=== PATIENT | female | born 1990 | race Caucasian/White ===

== ENCOUNTER 2021-01-03 22:47 | Emergency (ER) | payer MEDICAID, SELFPAY ==
[2021-01-03 22:47] VITALS: BP 109/68; PULSE 102; RESP 18; TEMP 36.6; O2SAT 98; BMI 21.7
[2021-01-03 22:55] VITALS: BP 117/78; PULSE 100; O2SAT 96
[2021-01-03 23:02] LABS: Microscopic, Urine URINE MICROSCOPIC (MICROSCOPIC)
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
[2021-01-03 23:04] LABS: Appearance,Urine CLEAR (Clear); Bilirubin,Urine Negative (Negative); Blood, Urine 3+ (Negative); Color,Urine YELLOW (Yellow); Glucose,Urine (UA) Negative (Negative); Ketones,Urine Negative (Negative); Leukocyte Esterase,Urine Negative (Negative); Nitrate,Urine Negative (Negative); Protein,Urine Negative (Negative); Specific Gravity, Urine <= 1.005 (1.005-1.030); Urobilinogen,Urine 0.2 EU/dl (0.2)
[2021-01-03 23:10] LABS: RBC,Urine Occasional #/hpf (0-3); WBC,Urine Occasional #/hpf (0-3)
[2021-01-03 23:14] LABS: Basophils # 0.1 K/mm3 (0-0.2); Basophils % 1.6 % (0.1-2.0); Eosinophils # 0.7 K/mm3 (0.0-0.4); Eosinophils % 9.9 % (0.1-12.0); Hematocrit 46.3 % (37.0-47.0); Hemoglobin 15.3 g/dL (12.2-16.2); Lymphocytes % 41.4 % (10-50); Mean Corpuscular HGB Conc 33.1 g/dL (31.8-35.4); Mean Corpuscular Hemoglobin 30.2 pg (27.0-31.2); Mean Corpuscular Volume 91.3 fl (81-99); Mean Platelet Volume 8.2 fl (7.4-10.4); Monocytes # 0.3 K/mm3 (0.1-1.0); Monocytes % 4.6 % (1.7-9.3); Neutrophils % 42.5 % (37.0-80.0); Platelet Count 262 K/mm3 (142-424); Red Blood Count 5.07 M/mm3 (4.20-5.40); Red Cell Distribution Width 13.9 % (11.5-17.5); White Blood Count 7.1 K/mm3 (4.8-10.8)
[2021-01-03 23:17] LABS: Amphetamine/Metha Screen,Urine Positive ng/ml (<1000); Benzodiazepines Screen,Urine Negative ng/ml (<200)
[2021-01-03 23:18] LABS: Barbiturates Screen,Urine Negative ng/ml (<200)
[2021-01-03 23:19] LABS: Cannabinoid Screen,Urine Negative ng/ml (<50); Cocaine Screen,Urine Negative ng/ml (<300)
[2021-01-03 23:20] LABS: Methadone Screen,Urine Negative ng/ml (<300); Opiate Screen,Urine Negative ng/ml (<300)
[2021-01-03 23:21] LABS: Alanine Aminotransferase 43 U/L (12-78); Albumin Level 4.8 g/dl (3.5-5.0); Albumin/Globulin Ratio 1.4 (1.1-1.8); Alkaline Phosphatase 67 U/L (38-126); Anion Gap 15.4 mEq/L (5-15); Aspartate Amino Transferase 62 U/L (14-36); Bilirubin,Total 0.4 mg/dl (0.2-1.3); Blood Urea Nitrogen 10 mg/dl (7-17); Calcium 9.3 mg/dl (8.4-10.2); Carbon Dioxide 24 mmol/L (22.0-30.0); Chloride 111 mmol/L (98-107); Creatinine Clearance Estimated 111 mL/min (50-200); Estimated Glomerular Filt Rate 116 ml/min (>60); GFR (African American) 140 ML/MIN (>60); Globulin 3.4 g/dL (1.3-3.2); Glucose 89 mg/dl (74-100); Lactic Acid 1.4 mmol/L (0.7-2.1); Potassium 3.4 mmoL/L (3.5-5.1); Sodium 147 mmol/L (136-145); Total Protein,Serum 8.2 g/dl (6.3-8.2)
[2021-01-03 23:21] LABS: Phencyclidine Screen,Urine Negative ng/ml (<25)
[2021-01-03 23:26] LABS: C-Reactive Protein 2.3 mg/L (0-4)
[2021-01-03 23:40] LABS: Procalcitonin 0.053 ng/mL (0.0-2.0)
[2021-01-03 23:52] LABS: Erythrocyte Sedimentation Rate 7 mm/hr (0-20)
[2021-01-04 00:18] LABS: Ethyl Alcohol 228 mg/dl (0-10)
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
[2021-01-04 02:29] VITALS: BP 116/78; PULSE 96; RESP 19; TEMP 36.6; O2SAT 98
== END 2021-01-04 02:38 | disposition home or self-care (01) ==
PROVIDERS: Emergency Provider Emergency Medicine
DX: S02.642A Fracture of ramus of left mandible, initial encounter for closed fracture (principal); F10.920 Alcohol use, unspecified with intoxication, uncomplicated; F19.10 Other psychoactive substance abuse, uncomplicated; F17.210 Nicotine dependence, cigarettes, uncomplicated; Y04.0XXA Assault by unarmed brawl or fight, initial encounter; Y92.009 Unspecified place in unspecified non-institutional (private) residence as the place of occurrence of the external cause
CPT/HCPCS: 70450; 70486; 71046; 72125; 80053; 80305; 81001; 83605; 84145; 85025; 85651; 86140; 87040; 96365; 99283

== ENCOUNTER 2021-01-05 19:02 | Emergency (ER) | payer MEDICAID, SELFPAY ==
[2021-01-05 19:03] VITALS: BP 125/84; PULSE 104; RESP 16; TEMP 36.7; O2SAT 93; BMI 22.6
--- NOTE | 2021-01-05 19:22 | CT_ITS ---
PROCEDURE: CT HEAD/BRAIN WO CON CLINICAL INDICATION: headache Severe headache, Head injury with headache/pain, contusion, abrasion or hematoma COMPARISON: CT CT HEAD/BRAIN WO CON from 01/03/2021 TECHNIQUE: Axial images obtained. All CT scans at the facility use one or more dose reduction, viz: automated exposure control, ma/kV adjustment per patient size (including targeted exams where dose is matched to indication, i.e. head), or iterative reconstruction technique. FINDINGS: No midline shift, mass effect, intracranial hemorrhage, hydrocephalus, or extra-axial fluid collection is evident. Numerous metallic densities once again noted in the vermian region and central cerebellum consistent with multiple coils. No acute intracranial hemorrhage apparent. The calvarium has an unremarkable appearance. No mastoid effusion. No sinus air-fluid level. IMPRESSION: No change with no acute finding Dictated by: Christopher Rondon MD 01/06/2021 10:21 Christopher Rondon MD in [facility] 01/06/2021 10:21
--- NOTE | 2021-01-05 19:22 | XR_ITS ---
PROCEDURE: XR CHEST PORTABLE CLINICAL HISTORY: chest pain Pain COMPARISON: CT CT CERVICAL SPINE WO CON from 01/03/2021 CR XR CHEST 2V from 01/03/2021 FINDINGS: The cardiomediastinal silhouette and pulmonary vascularity are within normal limits. No lobar consolidation or collapse. There is a linear longitudinal opacity noted along the left lateral chest which may be due to overlying artifact or a pleural reflection. Lung markings are present peripheral to this region. Consider follow-up to confirm stability or resolution. No acute bony abnormalities. IMPRESSION: No acute findings. Dictated by: Christopher Rondon MD 01/06/2021 06:00 Christopher Rondon MD in [facility] 01/06/2021 06:00
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
[2021-01-05 19:42] LABS: Basophils # 0.1 K/mm3 (0-0.2); Basophils % 0.8 % (0.1-2.0); Eosinophils # 0.1 K/mm3 (0.0-0.4); Eosinophils % 1.9 % (0.1-12.0); Hematocrit 43.8 % (37.0-47.0); Hemoglobin 14.3 g/dL (12.2-16.2); Lymphocytes # 2.5 K/mm3 (0.7-4.5); Mean Corpuscular HGB Conc 32.7 g/dL (31.8-35.4); Mean Corpuscular Hemoglobin 29.8 pg (27.0-31.2); Mean Platelet Volume 8.2 fl (7.4-10.4); Monocytes # 0.3 K/mm3 (0.1-1.0); Monocytes % 3.9 % (1.7-9.3); Neutrophils # 3.6 K/mm3 (1.8-7.8); Neutrophils % 55.4 % (37.0-80.0); Platelet Count 320 K/mm3 (142-424); Red Blood Count 4.81 M/mm3 (4.20-5.40); Red Cell Distribution Width 13.9 % (11.5-17.5); White Blood Count 6.5 K/mm3 (4.8-10.8)
[2021-01-05 19:44] LABS: Chloride 114 mmol/L (98-107); Potassium 3.6 mmoL/L (3.5-5.1); Sodium 148 mmol/L (136-145)
[2021-01-05 19:46] LABS: Alanine Aminotransferase 37 U/L (12-78); Aspartate Amino Transferase 44 U/L (14-36); Blood Urea Nitrogen 8 mg/dl (7-17); Creatinine Clearance Estimated 116 mL/min (50-200); Estimated Glomerular Filt Rate 116 ml/min (>60); GFR (African American) 140 ML/MIN (>60)
[2021-01-05 19:47] LABS: Albumin Level 4.7 g/dl (3.5-5.0); Albumin/Globulin Ratio 1.4 (1.1-1.8); Alkaline Phosphatase 70 U/L (38-126); Anion Gap 16.6 mEq/L (5-15); Bilirubin,Total 0.3 mg/dl (0.2-1.3); Calcium 9.3 mg/dl (8.4-10.2); Carbon Dioxide 21 mmol/L (22.0-30.0); Ethyl Alcohol 249 mg/dl (0-10); Globulin 3.3 g/dL (1.3-3.2); Glucose 113 mg/dl (74-100)
[2021-01-05 20:00] LABS: Troponin I < 0.01 ng/ml (0.00-0.034)
[2021-01-05 21:12] VITALS: BP 131/81; PULSE 79; RESP 16; TEMP 36.8; O2SAT 95
== END 2021-01-05 21:13 ==
PROVIDERS: Emergency Provider Emergency Medicine
DX: F10.10 Alcohol abuse, uncomplicated (principal); S02.602D Fracture of unspecified part of body of left mandible, subsequent encounter for fracture with routine healing; F17.210 Nicotine dependence, cigarettes, uncomplicated; Z88.0 Allergy status to penicillin
CPT/HCPCS: 36415; 70450; 71045; 80053; 84484; 85025; 93005; 99283

== ENCOUNTER → 2021-01-27 16:34 | Outpatient (CLI) | payer MEDICAID, SELFPAY ==
[2021-01-27 17:08] LABS: Benzodiazepines Screen,Urine Negative ng/ml (<200)
[2021-01-27 17:09] LABS: Amphetamine/Metha Screen,Urine Negative ng/ml (<1000)
[2021-01-27 17:10] LABS: Barbiturates Screen,Urine Negative ng/ml (<200); Methadone Screen,Urine Negative ng/ml (<300)
[2021-01-27 17:11] LABS: Cannabinoid Screen,Urine Negative ng/ml (<50); Cocaine Screen,Urine Negative ng/ml (<300)
[2021-01-27 17:12] LABS: Opiate Screen,Urine Negative ng/ml (<300)
[2021-01-27 17:13] LABS: Phencyclidine Screen,Urine Negative ng/ml (<25)
== END ==
PROVIDERS: Visit Provider Family Medicine
DX: Z79.899 Other long term (current) drug therapy (principal)
CPT/HCPCS: 80305

== ENCOUNTER → 2021-04-29 12:02 | Outpatient (CLI) | payer MEDICAID, SELFPAY | PROVIDERS: PCP Family Medicine; Visit Provider Family Medicine | DX: Z20.822 Contact with and (suspected) exposure to COVID-19 (principal) | CPT/HCPCS: U0003 ==

== ENCOUNTER → 2021-04-30 15:43 | Outpatient (CLI) | payer MEDICAID, SELFPAY | PROVIDERS: Visit Provider Nurse Practitioner Family | DX: N39.0 Urinary tract infection, site not specified (principal) | CPT/HCPCS: 87086; 87088; 87186 ==

== ENCOUNTER → 2021-07-14 08:13 | Outpatient (CLI) | payer MEDICAID, SELFPAY | PROVIDERS: Visit Provider Physician Assistant | DX: Z01.818 Encounter for other preprocedural examination (principal); Z11.52 Encounter for screening for COVID-19 | CPT/HCPCS: C9803; U0003; U0005 ==

== ENCOUNTER → 2021-08-02 18:15 | Outpatient (CLI) | payer MEDICAID, SELFPAY | PROVIDERS: Visit Provider Nurse Practitioner Family | DX: Z20.822 Contact with and (suspected) exposure to COVID-19 (principal) | CPT/HCPCS: C9803; U0003; U0005 ==

== ENCOUNTER → 2021-11-06 12:39 | Outpatient (CLI) | payer MEDICAID, SELFPAY ==
[2021-11-07 06:37] LABS: Covid-19 Nasal PCR Sendout Lex NOT DETECTED
== END ==
PROVIDERS: Visit Provider Nurse Practitioner
DX: Z20.822 Contact with and (suspected) exposure to COVID-19 (principal)
CPT/HCPCS: C9803; U0004; U0005

== ENCOUNTER 2021-11-06 12:44 | Emergency (ER) | payer MEDICAID, SELFPAY ==
[2021-11-06 13:36] VITALS: BP 102/67; PULSE 95; RESP 18; TEMP 37.3; O2SAT 97; BMI 23.6
--- NOTE | 2021-11-06 13:56 | HMH.EDUTC ---
[facility] [place] Impression: Bronchitis Sinusitis Qualifiers: Sinusitis location: unspecified location Chronicity: acute Recurrence: non-recurrent Qualified Code(s): J01.90 - Acute sinusitis, unspecified Disposition: Home, Self-Care Condition on Discharge: Good Instructions: DI for Sinusitis, DI for Acute Bronchitis Additional Instructions: Drink plenty of fluids. Take tylenol or ibuprofen for pain or fever. Take the medications as directed. Follow up with your regular doctor. GO TO THE ER FOR ANY WORSENING SYMPTOMS Quarantine until you know the results of your covid-19 test. Notify your school or workplace of your results and follow their instructions regarding return to work/school. Prescriptions: Benzonatate [Benzonatate 100mg cap] 100 mg PO TIDP PRN #30 cap PRN Reason: Cough Transmission Status: Pending to [facility] methylPREDNISolone [Medrol] 4 mg PO DIRECTED 6 Days #21 packet Transmission Status: Pending to [facility] guaiFENesin [Mucinex 600mg tablet] 1 - 2 tab PO BIDP PRN #30 tab PRN Reason: Congestion Transmission Status: Pending to [facility] Cefdinir [Omnicef 300mg Capsule] 300 mg PO BID #20 cap Transmission Status: Pending to [facility] Referrals: Provider,Referral, MD [Primary Care Provider] - Time of Disposition: 14:45 Medical Decision Making - Medical Records Medical records reviewed: No: I reviewed the patient's medical records. - Jung Inquiry Pt receiving controlled substance: No Vital Signs: 11/06/21 13:36 Temperature 99.1 F Temperature Source Oral Pulse Rate [Left] 95 H Respiratory Rate 18 Blood Pressure [Right Arm] 102/67 L Blood Pressure Mean [Right Arm] 78 02 Sat by Pulse Oximetry 97 Orders (Tests/Meds): ORDERS Category Date Time Status Rapid Strep Scrn Group A [Strep Scrn Group A (Rapid)] Lab 11/06/21 13:40 [place] [facility] [place] Stated complaint: Possible sinus infection Time Seen by Provider: 11/06/21 13:56 Mode of Arrival: Ambulatory Source of Information: Patient Limitations: No Limitations Description of Symptoms (Recalled from Triage Doc. by RN): pt c/o a cough, dry nose, and itchy throat x3 days. HEENT Symptoms (Recalled from RN notes): Yes Resp Symptoms (Recalled from RN notes): Yes Skin Symptoms (Recalled from RN notes): No MS Symptoms (Recalled from RN notes): No Functional Status (Recalled from RN notes): wnl - History of Present Illness Provider Complaint: She states that for the past 3 days she has had sinus congestion, chest congestion, scratchy sore throat, productive cough with yellowish sputum. She denies any fever or chills. She has been vaccinated agaist covid-19. She denies any known sick contacts. - Related Data Home Medications Medication Instructions Recorded Confirmed buprenorphine 8 mg-naloxone 2 mg 1 dose SUBLINGUAL DAILY 10/25/20 05/15/21 sublingual tablet clonidine HCl 0.1 mg tablet 0.1 mg PO tab 08/02/21 08/02/21 cyclobenzaprine 5 mg tablet 5 mg PO tab 08/02/21 08/02/21 dexamethasone 4 mg tablet 4 mg PO tab 08/02/21 08/02/21 gabapentin 300 mg capsule 300 mg PO cap 08/02/21 08/02/21 oxycodone 5 mg tablet 5 mg PO tab 08/02/21 08/02/21 promethazine 25 mg tablet 25 mg PO tab 08/02/21 08/02/21 Previous Rx's Medication Instructions Recorded doxycycline hyclate 100 mg capsule 100 mg PO BID 10 Days #20 cap 08/02/21 albuterol sulfate 90 mcg/actuation See Rx Instructions .ROUTE 09/18/21 aerosol inhaler .COMPLEX #8.5 gram albuterol sulfate 90 mcg/actuation See Rx Instructions .ROUTE 10/08/21 aerosol inhaler .COMPLEX #8.5 g Benzonatate [Benzonatate 100mg 100 mg PO TIDP PRN #30 cap 11/06/21 cap] Cefdinir [Omnicef 300mg Capsule] 300 mg PO BID #20 cap 11/06/21 guaiFENesin [Mucinex 600mg tablet] 1 - 2 tab PO BIDP PRN #30 tab 11/06/21 methylPREDNISolone [Medrol] 4 mg PO DIRECTE
[2021-11-06 14:43] LABS: Strep Scrn Group A (Rapid) Negative (Negative)
[2021-11-06 14:53] VITALS: BP 102/67; PULSE 95; RESP 18; TEMP 37.3
== END 2021-11-06 14:54 | disposition home or self-care (01) ==
PROVIDERS: Emergency Provider Nurse Practitioner Family
DX: J20.9 Acute bronchitis, unspecified (principal); J01.90 Acute sinusitis, unspecified; F41.8 Other specified anxiety disorders; F17.210 Nicotine dependence, cigarettes, uncomplicated
CPT/HCPCS: 87430; 99203; G0463

== ENCOUNTER → 2021-11-25 12:01 | Outpatient (CLI) | payer MEDICAID, SELFPAY ==
[2021-11-25 17:40] LABS: Basophils % 0.8 % (0.1-2.0); Eosinophils # 0.3 K/mm3 (0.0-0.4); Eosinophils % 4.4 % (0.1-12.0); Hematocrit 40.6 % (37.0-47.0); Hemoglobin 13.1 g/dL (12.2-16.2); Lymphocytes % 34.8 % (10-50); Mean Corpuscular HGB Conc 32.3 g/dL (31.8-35.4); Mean Corpuscular Hemoglobin 29.2 pg (27.0-31.2); Mean Corpuscular Volume 90.4 fl (81-99); Mean Platelet Volume 9.7 fl (7.4-10.4); Monocytes # 0.5 K/mm3 (0.1-1.0); Monocytes % 7.9 % (1.7-9.3); Neutrophils % 52.1 % (37.0-80.0); Platelet Count 234 K/mm3 (142-424); Red Blood Count 4.49 M/mm3 (4.20-5.40); Red Cell Distribution Width 15.7 % (11.5-17.5); White Blood Count 5.7 K/mm3 (4.8-10.8)
[2021-11-25 17:58] LABS: Alanine Aminotransferase 128 U/L (12-78); Albumin Level 4.5 g/dl (3.5-5.0); Albumin/Globulin Ratio 1.6 (1.1-1.8); Alkaline Phosphatase 62 U/L (38-126); Anion Gap 11.9 mEq/L (5-15); Aspartate Amino Transferase 98 U/L (14-36); Bilirubin,Total 0.6 mg/dl (0.2-1.3); Blood Urea Nitrogen 10 mg/dl (7-17); Calcium 8.8 mg/dl (8.4-10.2); Carbon Dioxide 29 mmol/L (22.0-30.0); Chloride 103 mmol/L (98-107); Estimated Glomerular Filt Rate 115 ml/min (>60); GFR (African American) 139 ML/MIN (>60); Globulin 2.9 g/dL (1.3-3.2); Glucose 88 mg/dl (74-100); Potassium 3.9 mmoL/L (3.5-5.1); Sodium 140 mmol/L (136-145); Total Protein,Serum 7.4 g/dl (6.3-8.2)
[2021-11-27 09:26] LABS: HIV Screen 4th Generation wRfx Non Reactive (Non Reactive)
[2021-11-27 12:18] LABS: Hep A Ab, IgM Negative (Negative); Hep A Ab, Total Positive (Negative); Hep B Core Ab, Total Negative (Negative); Hep B Surface Ab, Qual Reactive (.); Hepatitis B Surface Antigen Negative (Negative); Hepatitis C Antibody >11.0 s/co ratio (0.0-0.9)
[2021-11-28 03:37] LABS: ALT (SGPT) P5P 124 IU/L (0-40); Alpha 2-Macroglobulins, Qn 256 mg/dL (110-276); Apolipoprotein A-1 121 mg/dL (116-209); Bilirubin, Total 0.4 mg/dL (0.0-1.2); Fibrosis Score 0.19 (0.00-0.21); GGT 21 IU/L (0-60); Haptoglobin 112 mg/dL (33-278); Necroinflammat Activity Grade A2-A3 (.); Necroinflammat Activity Score 0.61 (0.00-0.17)
[2021-11-29 20:08] LABS: HCV Genotype Charge YES; Hepatitis C Genotype 3 (.)
== END ==
PROVIDERS: Visit Provider Family Medicine
DX: B19.20 Unspecified viral hepatitis C without hepatic coma (principal); N28.9 Disorder of kidney and ureter, unspecified; B96.1 Klebsiella pneumoniae [K. pneumoniae] as the cause of diseases classified elsewhere
CPT/HCPCS: 80053; 81596; 85025; 86703; 86704; 86706; 86708; 87086; 87088; 87186; 87340; 87380; 87522; 87902; G0432

== ENCOUNTER → 2022-02-27 07:00 | Outpatient (CLI) | payer MEDICAID, SELFPAY | PROVIDERS: PCP Family Medicine; Visit Provider Family Medicine | DX: R30.9 Painful micturition, unspecified (principal); B96.20 Unspecified Escherichia coli [E. coli] as the cause of diseases classified elsewhere | CPT/HCPCS: 87086; 87088; 87186 ==

== ENCOUNTER → 2022-05-20 06:19 | Outpatient (CLI) | payer MEDICAID, SELFPAY ==
[2022-05-20 16:10] LABS: Alanine Aminotransferase 45 U/L (12-78); Albumin Level 4.4 g/dl (3.5-5.0); Albumin/Globulin Ratio 1.4 (1.1-1.8); Alkaline Phosphatase 82 U/L (38-126); Anion Gap 11.2 mEq/L (5-15); Aspartate Amino Transferase 58 U/L (14-36); Bilirubin,Total 0.4 mg/dl (0.2-1.3); Blood Urea Nitrogen 8 mg/dl (7-17); Calcium 9.2 mg/dl (8.4-10.2); Carbon Dioxide 27 mmol/L (22.0-30.0); Chloride 106 mmol/L (98-107); Estimated Glomerular Filt Rate 114 ml/min (>60); GFR (African American) 138 ML/MIN (>60); Globulin 3.1 g/dL (1.3-3.2); Glucose 90 mg/dl (74-100); Potassium 4.2 mmoL/L (3.5-5.1); Sodium 140 mmol/L (136-145); Total Protein,Serum 7.5 g/dl (6.3-8.2)
[2022-05-20 17:47] LABS: Eosinophils # 0.3 K/mm3 (0.0-0.4); Eosinophils % 6.6 % (0.1-12.0); Hematocrit 42.2 % (37.0-47.0); Hemoglobin 12.9 g/dL (12.2-16.2); Lymphocytes # 1.5 K/mm3 (0.7-4.5); Lymphocytes % 36.6 % (10-50); Mean Corpuscular HGB Conc 30.5 g/dL (31.8-35.4); Mean Corpuscular Hemoglobin 28.9 pg (27.0-31.2); Mean Platelet Volume 10.2 fl (7.4-10.4); Monocytes # 0.4 K/mm3 (0.1-1.0); Monocytes % 8.9 % (1.7-9.3); Neutrophils # 1.9 K/mm3 (1.8-7.8); Neutrophils % 46.8 % (37.0-80.0); Platelet Count 261 K/mm3 (142-424); Red Blood Count 4.44 M/mm3 (4.20-5.40); Red Cell Distribution Width 14.1 % (11.5-17.5); White Blood Count 4.2 K/mm3 (4.8-10.8)
[2022-05-22 09:25] LABS: HIV Screen 4th Generation wRfx Non Reactive (Non Reactive); Hepatitis B Surface Antigen Negative (Negative); Hepatitis C Antibody >11.0 s/co ratio (0.0-0.9)
[2022-05-22 12:22] LABS: Hep A Ab, Total Positive (Negative); Hep B Core Ab, Total Negative (Negative); Hep B Surface Ab, Qual Reactive (.)
[2022-05-28 18:08] LABS: HCV Genotype Charge YES; Hepatitis C Genotype 3 (.)
== END ==
PROVIDERS: PCP Nurse Practitioner Family; Visit Provider Nurse Practitioner Family
DX: F15.10 Other stimulant abuse, uncomplicated (principal); R53.83 Other fatigue; Z11.4 Encounter for screening for human immunodeficiency virus [HIV]
CPT/HCPCS: 80053; 85025; 86703; 86704; 86706; 86708; 87340; 87380; 87522; 87902; G0432

== ENCOUNTER 2022-06-28 15:15 | Emergency (ER) | payer MEDICAID, SELFPAY ==
[2022-06-28 15:34] VITALS: BP 141/82; PULSE 74; RESP 16; TEMP 36.8; O2SAT 98; BMI 23.6
--- NOTE | 2022-06-28 15:54 | EXP.UTC ---
Discharge Plan Disposition Patient Disposition: Home, Self-Care Condition: Good Prescriptions Prescriptions: New methylprednisolone 4 mg Tablets,Dose Pack 4 mg PO DIRECTED Qty: 21 0RF cefdinir 300 mg capsule 300 mg PO BID Qty: 20 0RF fluticasone propionate [fluticasone propionate] 50 mcg/actuation spray,suspension 1 spr intranasal DAILY 30 Days Qty: 120 0RF No Action buprenorphine-naloxone 8-2 mg tablet, sublingual 1 tab SL DAILY albuterol sulfate [ProAir HFA] 90 mcg/actuation HFA aerosol inhaler See Rx Instructions .ROUTE .COMPLEX Qty: 8.5 0RF Dose Instruction: INHALE 2 PUFFS BY MOUTH EVERY 6 HOURS NEEDED FOR WHEEZING Rx Instructions: INHALE 2 PUFFS BY MOUTH EVERY 6 HOURS NEEDED FOR WHEEZING Vraylar 1.5 mg capsule 1.5 mg PO DAILY Qty: 30 1RF Referrals Follow up/Referrals: Colt Euceda MD [Primary Care Provider] - See instructions Activity Restrictions/Add. Instructions Additional Instructions/Restrictions: Drink plenty of fluids. Take tylenol or ibuprofen for pain or fever. Take the medications as directed. Follow up with your regular doctor. GO TO THE ER FOR ANY WORSENING SYMPTOMS Clinical Impressions Clinical Impression: Sinusitis Instructions Patient Instructions: Sinusitis, DI for Sinusitis Discharge ED Provider: Josef Pickett [facility] General Stated complaint: coughing, congestion Mode of Arrival: Ambulatory Source of Information: Patient Limitations: No Limitations Time Seen by Provider: 06/28/22 15:52 Description of Symptoms (Recalled from Triage Doc. by RN): pt comes in with c/o sinus issues. symptoms began 3 weeks ago. pt here for flonase and abx HEENT Symptoms (Recalled from RN notes): Yes Resp Symptoms (Recalled from RN notes): No Skin Symptoms (Recalled from RN notes): No MS Symptoms (Recalled from RN notes): No Functional Status (Recalled from RN notes): n/a History of Present Illness Provider Complaint: She c/o worsening sinus congestion for the past 3 days. Related Data Home Medications Medication Instructions Recorded Confirmed buprenorphine 8 mg-naloxone 2 mg 1 tab sublingual DAILY 05/11/22 05/20/22 sublingual tablet Previous Rx's Medication Instructions Recorded albuterol sulfate 90 mcg/actuation See Rx Instructions .Route 06/15/22 aerosol inhaler (ProAir HFA) .COMPLEX #8.5 grams cariprazine 1.5 mg capsule 1.5 mg PO DAILY #30 caps 06/22/22 (Vraylar) cefdinir 300 mg capsule 300 mg PO BID #20 caps 06/28/22 fluticasone propionate 50 1 spr intranasal DAILY 30 days 06/28/22 mcg/actuation nasal #120 ea spray,suspension methylprednisolone 4 mg tablets in 4 mg PO DIRECTED #21 tabs 06/28/22 a dose pack Allergies Allergy/AdvReac Type Severity Reaction Status Date / Time amoxicillin Allergy Severe Hives Verified 06/28/22 15:36 erythromycin base Allergy Severe Hives Verified 06/28/22 15:36 Penicillins Allergy Severe Hives Verified 06/28/22 15:36 Worker's Comp Is this a Worker's Comp case?: No PFSH PFSH Social History Smoking Status: Current every day smoker tobacco type: cigarettes packs per day: 1 alcohol intake: current substance use type: heroin current occupational status: unemployed and disabled Travel in the last 8 weeks: None household members: significant other housing: apartment number of children: 4 ROS Obtained: Yes All systems reviewed & no additional complaints except as documented Constitutional Constitutional: Reports chills and Reports fever(s) Eyes Eyes: Denies eye discharge ENT Ears, Nose, Mouth, and Throat: Reports as per HPI Cardiovascular Cardiovascular: Denies chest pain Respiratory Respiratory: Denies chest congestion and Reports cough Gastrointestinal Gastrointestingal: Reports nausea; Denies abdominal pain, constipation, cramping, diarrhea or vomiting Musculoskeletal Musculoskeletal: Denie
[2022-06-28 16:03] VITALS: BP 183/66; PULSE 60; RESP 18; TEMP 36.5
[2022-06-28 16:05] VITALS: BP 183/66; PULSE 60; RESP 18; TEMP 36.5
== END 2022-06-28 16:04 | disposition home or self-care (01) ==
PROVIDERS: Emergency Provider Nurse Practitioner Family; PCP Family Medicine
DX: J32.9 Chronic sinusitis, unspecified (principal)
CPT/HCPCS: 99212; G0463

== ENCOUNTER 2022-07-11 12:03 | Emergency (ER) | payer MEDICAID, SELFPAY ==
[2022-07-11 13:06] VITALS: BP 115/64; PULSE 77; RESP 18; TEMP 36.6; O2SAT 97; BMI 23.6
--- NOTE | 2022-07-11 13:06 | EXP.UTC ---
Discharge Plan Disposition Patient Disposition: Home, Self-Care Condition: Good Prescriptions Prescriptions: New cefdinir 300 mg capsule 300 mg PO BID Qty: 20 0RF guaifenesin [Mucinex] 600 mg tablet extended release 12hr 600 - 1,200 mg PO BIDP PRN (Reason: Congestion) Qty: 30 0RF No Action buprenorphine-naloxone 8-2 mg tablet, sublingual 1 tab SL DAILY albuterol sulfate [ProAir HFA] 90 mcg/actuation HFA aerosol inhaler See Rx Instructions .ROUTE .COMPLEX Qty: 8.5 0RF Dose Instruction: INHALE 2 PUFFS BY MOUTH EVERY 6 HOURS NEEDED FOR WHEEZING Rx Instructions: INHALE 2 PUFFS BY MOUTH EVERY 6 HOURS NEEDED FOR WHEEZING Vraylar 1.5 mg capsule 1.5 mg PO DAILY Qty: 30 1RF methylprednisolone 4 mg Tablets,Dose Pack 4 mg PO DIRECTED Qty: 21 0RF cefdinir 300 mg capsule 300 mg PO BID Qty: 20 0RF fluticasone propionate [fluticasone propionate] 50 mcg/actuation spray,suspension 1 spr intranasal DAILY 30 Days Qty: 120 0RF Referrals Follow up/Referrals: Colt Euceda MD [Primary Care Provider] - See instructions Activity Restrictions/Add. Instructions Additional Instructions/Restrictions: Drink plenty of fluids. Take tylenol or ibuprofen for pain or fever. Take the medications as directed. Follow up with your regular doctor. GO TO THE ER FOR ANY WORSENING SYMPTOMS Clinical Impressions Clinical Impression: Sinusitis, Otitis media Instructions Patient Instructions: Middle Ear Infection, DI for Sinusitis Discharge ED Provider: Josef Pickett [facility] HPI General Stated complaint: congestion and ear pain sore throat Time Seen by Provider: 07/11/22 13:06 History of Present Illness Provider Complaint: She states that for the past 2 days she has had sinus congestion and a sore throat. She has had low grade fever. She denies shortness of breath. Related Data Home Medications Medication Instructions Recorded Confirmed buprenorphine 8 mg-naloxone 2 mg 1 tab sublingual DAILY 05/11/22 05/20/22 sublingual tablet Previous Rx's Medication Instructions Recorded albuterol sulfate 90 mcg/actuation See Rx Instructions .Route 06/15/22 aerosol inhaler (ProAir HFA) .COMPLEX #8.5 grams cariprazine 1.5 mg capsule 1.5 mg PO DAILY #30 caps 06/22/22 (Vraylar) cefdinir 300 mg capsule 300 mg PO BID #20 caps 06/28/22 fluticasone propionate 50 1 spr intranasal DAILY 30 days 06/28/22 mcg/actuation nasal #120 ea spray,suspension methylprednisolone 4 mg tablets in 4 mg PO DIRECTED #21 tabs 06/28/22 a dose pack cefdinir 300 mg capsule 300 mg PO BID #20 caps 07/11/22 guaifenesin 600 mg tablet, 600 - 1,200 mg PO BIDP PRN 07/11/22 extended release 12 hr (Mucinex) Congestion #30 tabs Allergies Allergy/AdvReac Type Severity Reaction Status Date / Time amoxicillin Allergy Severe Hives Verified 07/11/22 13:09 erythromycin base Allergy Severe Hives Verified 07/11/22 13:09 Penicillins Allergy Severe Hives Verified 07/11/22 13:09 [facility] Social History Smoking Status: Current every day smoker tobacco type: cigarettes packs per day: 1 alcohol intake: current substance use type: heroin current occupational status: unemployed and disabled Travel in the last 8 weeks: None household members: significant other housing: apartment number of children: 4 ROS Obtained: Yes All systems reviewed & no additional complaints except as documented Constitutional Constitutional: Reports chills and Reports fever(s) Eyes Eyes: Denies eye discharge ENT Ears, Nose, Mouth, and Throat: Reports as per HPI Cardiovascular Cardiovascular: Denies chest pain Respiratory Respiratory: Denies chest congestion and Reports cough Gastrointestinal Gastrointestingal: Reports nausea; Denies abdominal pain, constipation, cramping, diarrhea or vomiting Musculoskeletal Musculoskeletal: Denies arthralgias Integumentar
[2022-07-11 13:18] LABS: UTC Strep Screen (Rapid) Negative (Negative)
[2022-07-11 13:34] VITALS: BP 115/64; PULSE 77; RESP 18; TEMP 36.6
== END 2022-07-11 13:37 | disposition home or self-care (01) ==
PROVIDERS: Emergency Provider Nurse Practitioner Family; PCP Family Medicine
DX: H66.90 Otitis media, unspecified, unspecified ear (principal); J02.9 Acute pharyngitis, unspecified; R50.9 Fever, unspecified; R09.81 Nasal congestion; F17.210 Nicotine dependence, cigarettes, uncomplicated; Z79.51 Long term (current) use of inhaled steroids; Z79.52 Long term (current) use of systemic steroids; Z79.899 Other long term (current) drug therapy; Z88.0 Allergy status to penicillin; Z88.1 Allergy status to other antibiotic agents; Z88.3 Allergy status to other anti-infective agents
CPT/HCPCS: 87880; 99213; G0463

== ENCOUNTER 2022-08-30 07:44 | Inpatient (IN) | payer MEDICAID, SELFPAY ==
[2022-08-30] VITALS (21 sets, daily range): BP systolic 107–135; BP diastolic 67–95; PULSE 85–127; RESP 18–32; TEMP 36.5–37.2; O2SAT 85–100; BMI 25.4; BMI 23.1
--- NOTE | 2022-08-30 08:02 | XR_ITS ---
PROCEDURE INFORMATION: Exam: XR Chest Exam date and time: 08/30/2022 8:30 AM Age: 32 years old Clinical indication: Shortness of breath; Additional info: SOA TECHNIQUE: Imaging protocol: Radiologic exam of the chest. Views: 1 view. COMPARISON: CR XR CHEST PORTABLE 01/05/2021 7:43 PM FINDINGS: Lungs: Emphysematous change and interstitial prominence. Pleural spaces: No pneumothorax or pleural effusion. Heart/Mediastinum: Normal configuration of the heart. Bones/joints: Unremarkable. Soft tissues: Subcutaneous emphysema and pneumomediastinum. Other findings: Brassiere artifact. IMPRESSION: 1. Subcutaneous emphysema and pneumomediastinum. 2. Emphysematous change and interstitial prominence. The aforementioned findings initiated a critical results communication pathway. An addendum will be issued at the time of clincian notification.
--- NOTE | 2022-08-30 08:09 | PC.NURSE ---
RT at the bedside
[2022-08-30 08:11] LABS: Coronavirus 19, PCR Not Detected (NotDetected); Influenza A, PCR Not Detected (NotDetected); Influenza B, PCR Not Detected (NotDetected)
[2022-08-30 08:16] LABS: Basophils # 0.2 K/mm3 (0-0.2); Basophils % 0.8 % (0.1-2.0); Chloride 103 mmol/L (98-107); Eosinophils # 0.8 K/mm3 (0.0-0.4); Eosinophils % 4.4 % (0.1-12.0); Hematocrit 43.5 % (37.0-47.0); Hemoglobin 14.2 g/dL (12.2-16.2); Lymphocytes # 4.1 K/mm3 (0.7-4.5); Lymphocytes % 22.3 % (10-50); Mean Corpuscular HGB Conc 32.6 g/dL (31.8-35.4); Mean Corpuscular Volume 92.2 fl (81-99); Mean Platelet Volume 8.9 fl (7.4-10.4); Monocytes % 5.7 % (1.7-9.3); Neutrophils # 12.3 K/mm3 (1.8-7.8); Neutrophils % 66.9 % (37.0-80.0); Platelet Count 368 K/mm3 (142-424); Potassium 3.8 mmoL/L (3.5-5.1); Red Blood Count 4.72 M/mm3 (4.20-5.40); Red Cell Distribution Width 14.2 % (11.5-17.5); Sodium 140 mmol/L (136-145); White Blood Count 18.4 K/mm3 (4.8-10.8)
[2022-08-30 08:19] LABS: Alanine Aminotransferase 31 U/L (12-78); Albumin Level 4.7 g/dl (3.5-5.0); Albumin/Globulin Ratio 1.4 (1.1-1.8); Alkaline Phosphatase 71 U/L (38-126); Anion Gap 19.8 mEq/L (5-15); Aspartate Amino Transferase 36 U/L (14-36); Bilirubin,Total 0.7 mg/dl (0.2-1.3); Blood Urea Nitrogen 13 mg/dl (7-17); Carbon Dioxide 21 mmol/L (22.0-30.0); Creatinine Clearance Estimated 128 mL/min (50-200); Estimated Glomerular Filt Rate 114 ml/min (>60); GFR (African American) 138 ML/MIN (>60); Globulin 3.4 g/dL (1.3-3.2); Total Protein,Serum 8.1 g/dl (6.3-8.2)
[2022-08-30 08:20] LABS: Calcium 9.3 mg/dl (8.4-10.2); Glucose 155 mg/dl (74-100)
[2022-08-30 08:23] LABS: Lactic Acid 4.6 mmol/L (0.7-2.1)
[2022-08-30 08:25] LABS: D-Dimer 0.59 ug/mL (0.0-0.5)
[2022-08-30 08:27] LABS: MANUAL DIFFERENTIAL MANUAL DIFFERENTIAL (MANUAL DIFF)
[2022-08-30 08:28] LABS: NT Pro Brain Natriuretic Pep. 102 pg/mL (0-125)
--- NOTE | 2022-08-30 08:29 | HMH.EDGENADL ---
Discharge Plan Disposition Patient Disposition: Admitted As Inpatient Condition: Good Clinical Impressions Clinical Impression: Pneumomediastinum Asthma exacerbation Qualifiers: Asthma severity: unspecified severity Asthma persistence: unspecified Qualified Code(s): J45.901 - Unspecified asthma with (acute) exacerbation Discharge ED Provider: Debbie Serrano General Adult HPI General Chief complaint: Shortness of Breath/Dyspnea Stated complaint: Difficulty breathing Time Seen by Provider: 08/30/22 08:02 Mode of Arrival: Wheelchair Source of Information: Patient Limitations: No Limitations Description of Symptoms (Recalled from ER Triage Doc. by RN): pt to ed c/o shortness of breath x2 days. pt reports a hx of asthma. History of Present Illness HPI narrative: This patient is a 32-year-old female with extensive smoking history, asthma, and IV drug use presented to the emergency department for evaluation of shortness of breath that she reports started suddenly last night. She states that she also had similar symptoms 3 days ago, but this was improved with inhalers. Since last night, she has been unable to get relief at home with inhalers. She reports that she started having chest pain this morning as well which is midsternal and nonradiating. She admits to subjective fever and cough. She denies any abdominal pain, nausea, vomiting, changes in bowel movements, or other concerns. She reports that she last used IV heroin yesterday. Related Data Home Medications Medication Instructions Recorded Confirmed albuterol sulfate 90 mcg/actuation 2 inh inhalation Q6HP PRN 08/30/22 08/30/22 aerosol inhaler (ProAir HFA) Shortness Of Breath sofosbuvir 400 mg-velpatasvir 100 1 tab PO DAILY HEPATITIS 08/30/22 08/30/22 mg tablet Allergies Allergy/AdvReac Type Severity Reaction Status Date / Time amoxicillin Allergy Severe Hives Verified 07/20/22 09:58 erythromycin base Allergy Severe Hives Verified 07/20/22 09:58 Penicillins Allergy Severe Hives Verified 07/20/22 09:58 [facility] Disclaimer: The information contained in this section may have been updated after the patient was seen, as this information can be updated by other users. Social History Smoking Status: Current every day smoker tobacco type: cigarettes packs per day: 1 alcohol intake: current substance use type: heroin current occupational status: unemployed and disabled Travel in the last 8 weeks: None household members: significant other housing: apartment number of children: 4 ROS Obtained: Yes All systems reviewed & no additional complaints except as documented 14 point review of systems obtained and negative except as mentioned in HPI. Physical Exam General General appearance: alert and in distress Comment: In respiratory distress with tachypnea, retractions, and wheezing heard audibly across the room. Head Head exam: atraumatic and normocephalic Eye Eye exam: Present normal appearance, PERRL and EOMI ENT ENT exam: Present mucous membranes dry Neck Neck exam: Present normal inspection and full ROM Chest Chest inspection: Present symmetric chest wall rise Respiratory Respiratory exam: Present respiratory distress, wheezes, accessory muscle use and prolonged expiratory phase Cardiovascular Cardiovascular exam: Present normal rhythm and tachycardia Abdominal Exam Abdominal exam: Present soft; Absent distention, tenderness or guarding Extremities Exam Extremities exam: Present normal inspection, full ROM and normal capillary refill; Absent tenderness or edema Back Exam Back exam: Present normal inspection and full ROM; Absent tenderness Neurological Exam Neurological exam: Present alert, oriented X3 and CN II-XII intact Psychiatric Psychiatric exam: Present anxious Skin Skin exam: Present warm and dry Medical Decision Making Medical Records Medical records reviewed: Yes I review
[2022-08-30 08:40] LABS: HCG Qualitative, Serum Negative (Negative)
[2022-08-30 08:43] LABS: VBG Base Excess -9.6 mmol/L (-2.4-2.3); VBG Oxygen Saturation 90.8 % (50-70); VBG PO2 73.6 mmol/L (28-40); VBG Total CO2 20.7 mmol/L (23-27)
[2022-08-30 08:44] LABS: Troponin I < 0.01 ng/ml (0.00-0.034)
--- NOTE | 2022-08-30 08:45 | ECG_ITS ---
APPROVED REPORT Exam: Resting ECG HR:115 bpm ECG Measurements Heart Rate 115 AXES AR 127 P 86 QRSd 82 QRS 85 QT 328 T 57 QTc 396 Conclusion SINUS TACHYCARDIA POSSIBLE RIGHT ATRIAL ENLARGEMENT [0.25mV P-WAVE] LEFT ATRIAL ENLARGEMENT [-0.15mV P-WAVE IN V1/V2] ABNORMAL ECG UNCONFIRMED REPORT Electronically signed by : Kain Aviles MD 08/31/2022 19:59:29
[2022-08-30 08:46] LABS: VBG PH 7.16 mmol/L (7.31-7.41)
[2022-08-30 08:47] LABS: VBG PCO2 54.2 mmol/L (35-51)
--- NOTE | 2022-08-30 08:48 | P.CONPHA_ITS ---
Pharmacy Consult Date: 08/30/22 Time: 08:48 Referring provider: DR. RAMIREZ Reason for Consult:: VANCOMYCIN DOSING Allergies Allergy/AdvReac Type Severity Reaction Status Date / Time amoxicillin Allergy Severe Hives Verified 07/20/22 09:58 erythromycin base Allergy Severe Hives Verified 07/20/22 09:58 Penicillins Allergy Severe Hives Verified 07/20/22 09:58 Home Medications Medication Instructions Recorded Confirmed Type No Known Home Medications 08/30/22 08/30/22 History New Prescriptions to Start Prescriptions: Height: 1.55 m Weight: 61.235 kg Laboratory Results:: Laboratory Results - last 24 hr 08/30/22 07:58: WBC 18.4 H, RBC 4.72, Hgb 14.2, Hct 43.5, MCV 92.2, MCH 30.0, MCHC 32.6, RDW 14.2, Plt Count 368, MPV 8.9, Neut % (Auto) 66.9, Lymph % (Auto) 22.3, Anderson % (Auto) 5.7, Eos % (Auto) 4.4, Baso % (Auto) 0.8, Neut # (Auto) 12.3 H, Lymph # (Auto) 4.1, Anderson # (Auto) 1.0, Eos # (Auto) 0.8 H, Baso # (Auto) 0.2 08/30/22 07:58: D-Dimer 0.59 H 08/30/22 07:58: Sodium 140, Potassium 3.8, Chloride 103, Carbon Dioxide 21 L, Anion Gap 19.8 H, BUN 13, Creatinine 0.60, Estimated Creat Clear 128, Estimated GFR 114, Est GFR ( Amer) 138, Glucose 155 H, Calcium 9.3, Total Bilirubin 0.7, AST 36, ALT 31, Alkaline Phosphatase 71, Troponin I < 0.01, NT-Pro-B Natriuret Pep 102, Total Protein 8.1, Albumin 4.7, Globulin 3.4 H, Albumin/Globulin Ratio 1.4 08/30/22 07:58: Lactate 4.6 H 08/30/22 07:58: SARS-CoV-2 (PCR) Not detected, Influenza A Untype (PCR) Not detected, Influenza Type B (PCR) Not detected 08/30/22 07:58: Serum HCG, Qual Negative 08/30/22 08:07: VBG pH 7.16 L, VBG pCO2 54.2 H, VBG pO2 73.6 H, VBG HCO3 19.0 L, VBG Total CO2 20.7 L, VBG O2 Saturation 90.8 H, VBG Base Excess -9.6 L Assessment and Plan Assessment and plan all Dx Assessment and Plan for all problems:: Pharmacokinetic dosing service Age: 32 yo Serum creatinine: 0.6 mg/dL Height: 61.0 Inches Weight (kg): 62 Assessment: IBW (kg): 47.80 Dosing wt(kg): 62 Estimated Creatinine clearance (ml/min): 99.7 CRCL method: Cockcroft and Gault using ibw(default). Drug selected: Vancomycin Loading dose (mg): 0 Vd (liters): 49.6 (factor used: 0.8 L/kg) Artie (hr-1): 0.087 Half life (hrs): 7.97 Recommended dose: 1250 mg Interval: 12 hrs Infusion time (hrs): 2.0 Predicted peak (mcg/mL): 35.7 Predicted trough (mcg/mL): 14.96 Total body weight is being used for vancomycin dosing. Recommendations: Give Vancomycin 1250 mg q 12 hrs with an expected Cpeak of 35.7 mcg/ml and an expected Ctrough of 14.96 mcg/ml ----Vanco only - ignore for aminoglycosides----- CLvanco= 4.32 L/hr AUC 0-24 /KHADAR Data: KHADAR 0.5 mcg/mL: AUC/KHADAR: 1157.4 KHADAR 1.0 mcg/mL: AUC/KHADAR: 578.7 --------- KHADAR 1.5 mcg/mL: AUC/KHADAR: 385.8 KHADAR 2.0 mcg/mL: AUC/KHADAR: 289.4
[2022-08-30 09:01] LABS: Eosinophils % 4 % (0-3); Lymphocytes % 29 % (10-50); Monocytes % 3 % (2-9); Neutrophils % 63 % (42-76); Platelet Estimate Normal; RBC Morphology Normal; Total Cells Counted 100
--- NOTE | 2022-08-30 09:04 | PC.NURSE ---
Dr Serrano speaking with Pawelad
--- NOTE | 2022-08-30 09:40 | PC.NURSE ---
Dr Serrano speaking with hospitalist
--- NOTE | 2022-08-30 09:41 | CT_ITS ---
PROCEDURE INFORMATION: Exam: CTA Chest With Contrast Exam date and time: 08/30/2022 10:56 AM Age: 32 years old Clinical indication: Shortness of breath; Additional info: SOA TECHNIQUE: Imaging protocol: Computed tomographic angiography of the chest with contrast. 3D rendering (Not supervised by radiologist): MIP and/or 3D reconstructed images were created by the technologist. Radiation optimization: All CT scans at this facility use at least one of these dose optimization techniques: automated exposure control; mA and/or kV adjustment per patient size (includes targeted exams where dose is matched to clinical indication); or iterative reconstruction. Contrast material: ISOVUE; Contrast volume: 70 ml; Contrast route: INTRAVENOUS (IV); COMPARISON: CR XR CHEST PORTABLE 08/30/2022 8:30 AM FINDINGS: The examination is degraded by motion artifact. Pulmonary arteries: Evaluation of the pulmonary arteries is limited by bolus timing and motion artifact. No pulmonary embolus in the visualized central pulmonary arteries. Aorta: Normal caliber of the thoracic aorta. Lungs: Interstitial prominence and upper lobe airspace disease, left greater than right. Pleural spaces: Trace pleural fluid and air. The Heart: No cardiomegaly or significant coronary artery calcification. Mediastinal space: Extensive pneumomediastinum, extending into the retrocrural space. This was reported to the referring clinician at the time of earlier chest radiograph. Lymph nodes: Subcentimeter lymph nodes. Spleen: Spleen upper limits of normal size. Bones/joints: No acute osseous pathology. Soft tissues: Extensive subcutaneous emphysema in the visualized neck base and axilla. IMPRESSION: 1. Evaluation of the pulmonary arteries is limited by bolus timing and motion artifact. No pulmonary embolus in the visualized central pulmonary arteries. 2. Extensive subcutaneous emphysema and pneumomediastinum. 3. Additional findings as described above.
--- NOTE | 2022-08-30 09:58 | HMH.ITSTN ---
Nurse trying to get IV in the AC or higher for PE study
[2022-08-30 10:19] LABS: Microscopic, Urine URINE MICROSCOPIC (MICROSCOPIC)
[2022-08-30 10:25] LABS: Appearance,Urine CLEAR (Clear); Bilirubin,Urine Negative (Negative); Blood, Urine Negative (Negative); Color,Urine ORANGE (Yellow); Glucose,Urine (UA) Negative (Negative); Ketones,Urine TRACE (Negative); Leukocyte Esterase,Urine Negative (Negative); Nitrate,Urine Negative (Negative); PH,Urine 5.5 (5.0-8.5); Protein,Urine TRACE (Negative); Specific Gravity, Urine >= 1.030 (1.005-1.030); Urobilinogen,Urine 0.2 EU/dl (0.2)
[2022-08-30 10:38] LABS: Bacteria,Urine Trace /lpf; Benzodiazepines Screen,Urine Negative ng/ml (<200); Squamous Epithelial Cell,Urine Occasional #/hpf (0-5)
[2022-08-30 10:39] LABS: Barbiturates Screen,Urine Negative ng/ml (<200)
[2022-08-30 10:40] LABS: Cannabinoid Screen,Urine Negative ng/ml (<50)
[2022-08-30 10:41] LABS: Cocaine Screen,Urine Negative ng/ml (<300); Methadone Screen,Urine Negative ng/ml (<300)
[2022-08-30 10:42] LABS: Opiate Screen,Urine Negative ng/ml (<300); Phencyclidine Screen,Urine Negative ng/ml (<25)
--- NOTE | 2022-08-30 10:47 | PC.NURSE ---
rad called for ct
--- NOTE | 2022-08-30 11:33 | PC.NURSE ---
placed call to [facility] for cardio thoracic surgeon for consult at this time
[2022-08-30 11:53] LABS: Troponin I < 0.01 ng/ml (0.00-0.034)
[2022-08-30 12:09] LABS: Reflex Lactic Add Lactic Reflex
--- NOTE | 2022-08-30 12:45 | PC.NURSE ---
ambulated to bathroom, tolerated well
[2022-08-30 12:56] LABS: Lactic Acid Follow Up (RFLX 1) 0.7 mmol/L (0.7-2.1)
--- NOTE | 2022-08-30 12:56 | PC.NURSE ---
called report to sweta hall rn
--- NOTE | 2022-08-30 14:04 | PC.NURSE ---
hospitalist yet to put orders in on pt. awaiting orders for pt to be transferred to the floor.
--- NOTE | 2022-08-30 14:49 | EXP.HP ---
History of Present Illness *Admission Date: 08/30/22 *Reason for visit:: Chief complaint: Shortness of air *History of present illness: This is a 32-year-old female that presents to [facility] emergency department with concerns of shortness of air. Her past medical history significant for tobacco dependence, intravenous drug use, methamphetamine addiction, heroin addiction, cerebral aneurysm status postcraniotomy and hepatitis C. She is accompanied by her boyfriend Jonathon Sanches who assists with the history. She reports several days of difficulty with inspiration, shortness of air not resolving with home care. She reports over the last 48 hours increasing shortness of air with associated chest tightness and pain to her neck and shoulders. She reports some cough but no associated nasal congestion, postnasal drip, acute dyspnea at rest or diaphoresis. She denies associated confusion, syncope or palpitations. There has been no associated nausea, vomiting, retching or diarrhea. She is unvaccinated to COVID?19 or influenza. In the ED she presented with tachycardia tachypnea and room air oxygen saturations of 85%. Initial chest x-ray imaging identified pneumomediastinum with subcutaneous neck emphysema. A follow-up CTA of the chest identified no PE with trace pleural fluid and air. It confirmed the extensive pneumomediastinum and subcutaneous neck emphysema. ED physician contacted Dr. Darnell Costa cardiothoracic surgeon at [facility] for transition of care and they recommended no surgical intervention and to continue to observe. The patient's laboratory studies were significant for lactic acidosis leukocytoses with a urine drug screen positive for methamphetamine negative for opiates. Her ECG identified sinus tachycardia with no acute ST-T changes. She was started on IV cefepime and vancomycin and azithromycin. Her COVID?[address] is negative[address] [facility] Medical History (Updated 08/30/22 @ 15:05 by Tad Blanco MD) Active intravenous drug use Cerebral aneurysm Hepatitis C infection Heroin addiction Methamphetamine dependence Tobacco dependence Surgical History (Updated 08/30/22 @ 14:59 by Tad Blanco MD) H/O craniotomy Family History (Updated 08/30/22 @ 15:00 by Tad Blanco MD) Mother Lupus Father Diabetes Hypertension Social History Smoking Status: Current every day smoker tobacco type: cigarettes packs per day: 1 alcohol intake: current substance use type: heroin current occupational status: unemployed and disabled Travel in the last 8 weeks: None household members: significant other housing: apartment number of children: 4 Review of Systems Review of Systems Review of systems:: pertinent systems reviewed and negative unless documented below Constitutional Constitutional: Denies chills and Denies fever(s) ENT Ears, Nose, Mouth, and Throat: Denies nasal congestion *Cardiovascular Cardiovascular: Denies chest pain, Reports dyspnea, Reports dyspnea on exertion and Denies irregular heart rhythm *Respiratory Respiratory: Reports dyspnea and Reports dyspnea on exertion *Gastrointestinal Gastrointestinal: Denies diarrhea, Denies nausea and Denies vomiting *Neurologic Neurologic: Denies confusion and Denies convulsions Psychiatric Psychiatric: Denies confusion Meds Home Medications and Allergies Home Medications Medication Instructions Recorded Confirmed Type albuterol sulfate 90 mcg/actuation 2 inh inhalation Q6HP PRN 08/30/22 08/30/22 History aerosol inhaler (ProAir HFA) Shortness Of Breath sofosbuvir 400 mg-velpatasvir 100 1 tab PO DAILY HEPATITIS 08/30/22 08/30/22 History mg tablet New Prescriptions to Start Prescriptions: Allergies Allergy/AdvReac Type Severity Reaction Status Date / Time amoxicillin Allergy Severe Hives Verified 07/20/22 09:58 erythromycin base Allergy Severe Hives Verified 06/22
--- NOTE | 2022-08-30 14:57 | PC.NURSE ---
pt to med surg
--- NOTE | 2022-08-30 14:59 | PC.NURSE ---
Pt arrived to the floor at this time
[2022-08-31] VITALS (10 sets, daily range): BP systolic 115–134; BP diastolic 75–89; PULSE 72–107; RESP 16–30; TEMP 36.8–37.3; O2SAT 92–100; BMI 24.0
--- NOTE | 2022-08-31 04:35 | PC.NURSE ---
Pt slept most of the night. She was medicated PRN for leg pain this shift. pt states she has restless leg syndrome, and her legs hurt from being in bed so long. she remains on 2L NC and has tolerated well. Wheezes noted. She had one anxious episode, and O2 saturation remained stable, she was medicated with scheduled meds and status improved. She has used the BSC with one person assist and tolerated well.
--- NOTE | 2022-08-31 06:00 | CA_ITS ---
APPROVED REPORT EXAM: Comprehensive 2D, Doppler, and color-flow Echocardiogram Cage Fighter: Mala Fontana RCS, RVS Ht: 5 ft 1 in Wt: 135lbs BSA: 1.60 BP: 118/75 mmHg Indications: Asthma exacerbation, IVDA, Sepsis, Hx-cerebral aneurysm s/p craniotomy, Hep-C Echo Enhancing Agent Comments: Patient limited apical interogation with hyperventillation for pain medication. 2D Dimensions LVDs 3.40 cm Aortic Root 2.71 cm Left Atrium 2.41 cm LVOT 1.85 cm (M/F) 1.5-2.5 M-Mode Dimensions RVDd 1.82 cm (0.9-2.6) LA Diam 2.64 cm (1.9-4.0) LVDd 5.59 cm (3.5-5.7) Ao Diam 2.89 cm (2.0-3.7) LVDs 3.70 cm (3.5-5.7) IVSd 0.50 cm (0.6-1.1) PWd 0.60 cm (0.6-1.1) EF (Teich) 62.00% EPSs 0.31 cm FS 33.80% EDV (Teich) 153.00 mL TAPSE 2.19 (<1.7) ESV (Teich) 58.10 mL LV Diastology E Decel Time 180.00 (160-240 msec) E/A Ratio 1.25 MED E' 18.30 (< 7 cm/sec) MED A' 16.60 cm/s E'/MED E' Ratio 6.17 (>14) Aortic Valve LVOT Max 110.00 (70-110 cm/s) LVOT VTI 19.65 cm AoV Peak Estuardo. 156.00 (50-130 cm/s) AO Peak GR. 9.70 mmHg AO Mean GR. 4.90 (<5 mmHg) AO VTI 28.06 (18-25 cm) JARAD (VTI) 1.88 (2.5-4.5 cm2) Mitral Valve MV A Velocity 90.00 (40-130 cm/s) E/A Ratio 1.25 MV Decel. Time 180.00 (160-240 ms) MV PHT 53.00 ms Pulmonary Valve NV End VMAX 134.00 cm/s Tricuspid Valve TR P. Velocity 277.00 cm/s Left Ventricle Left atrium is normal size, left ventricle is normal size, estimated ejection fraction 55% with no regional wall motion abnormality, diastolic parameters are within normal range. Right Ventricle Right atrium and right ventricle are normal size and contractility. Aortic Valve Aortic valve is grossly normal there is no aortic stenosis or aortic insufficiency. Mitral Valve Mitral valve is grossly normal, there is trace mitral regurgitation. Tricuspid Valve Tricuspid valve grossly normal, there is trace tricuspid regurgitation, tricuspid regurgitation jet velocity is inadequate for calculation of the right ventricular systolic pressure. Pulmonic Valve Pulmonic valve is poorly visualized. Great Vessels Aortic root is normal size. Inferior vena cava is normal size with normal inspiratory collapse. Pericardium No significant pericardial effusion noted. Conclusion 1. Normal left ventricular size preserved left ventricular systolic function, estimated ejection fraction 55% with no regional wall motion abnormality, diastolic parameters are within normal range. 2. Trace mitral and tricuspid regurgitation. 3. No significant pericardial effusion. 4. Inferior vena cava is normal size with normal inspiratory collapse. Electronically signed by : Cole Guadalupe MD 08/31/2022 20:57:17
--- NOTE | 2022-08-31 08:16 | HMH.PHAINT1 ---
Pharmacy Intervention Comments: Medication reconciliation completed via external fill history and patient interview. -Elizabeth Tabor, PharmD Candidate 2022
--- NOTE | 2022-08-31 09:09 | PC.NURSE ---
pt in room in bed sleeping at this time
--- NOTE | 2022-08-31 13:52 | PC.NURSE ---
sitting up in bed awake
[2022-08-31 16:15] LABS: INR 1.05 (0.9-1.1); Prothrombin Time 11.3 seconds (10.1-12.5)
[2022-08-31 16:18] LABS: Basophils % 0.1 % (0.1-2.0); Eosinophils % 0.2 % (0.1-12.0); Hematocrit 39.3 % (37.0-47.0); Hemoglobin 12.8 g/dL (12.2-16.2); Lymphocytes # 1.2 K/mm3 (0.7-4.5); Lymphocytes % 9.1 % (10-50); Mean Corpuscular HGB Conc 32.5 g/dL (31.8-35.4); Mean Corpuscular Hemoglobin 29.7 pg (27.0-31.2); Mean Corpuscular Volume 91.5 fl (81-99); Monocytes # 0.3 K/mm3 (0.1-1.0); Monocytes % 2.2 % (1.7-9.3); Neutrophils # 11.9 K/mm3 (1.8-7.8); Neutrophils % 88.4 % (37.0-80.0); Platelet Count 279 K/mm3 (142-424); Red Blood Count 4.29 M/mm3 (4.20-5.40); Red Cell Distribution Width 14.4 % (11.5-17.5); White Blood Count 13.5 K/mm3 (4.8-10.8)
[2022-08-31 16:19] LABS: Anion Gap 14.4 mEq/L (5-15); Blood Urea Nitrogen 11 mg/dl (7-17); Calcium 9.3 mg/dl (8.4-10.2); Carbon Dioxide 19 mmol/L (22.0-30.0); Chloride 112 mmol/L (98-107); Creatinine Clearance Estimated 120 mL/min (50-200); Estimated Glomerular Filt Rate 114 ml/min (>60); GFR (African American) 138 ML/MIN (>60); Glucose 119 mg/dl (74-100); Potassium 4.4 mmoL/L (3.5-5.1); Sodium 141 mmol/L (136-145)
--- NOTE | 2022-08-31 16:26 | EXP.PN ---
Subjective *Date: 08/31/22 *Time: 16:26 Interval history: Date of service August 31, 2022 I am accompanied by several members of the MDR team to evaluate the patient today. She reports no acute events overnight. Nursing staff report that she remains afebrile with stable vital signs and saturating appropriately on 3 L of oxygen via nasal cannula. We have reviewed and discussed her morning labs including her leukocytoses with stable hemoglobin and normal creatinine. She is tolerating her IV antibiotic therapy and her echocardiogram is pending. She is feeling better and is inquiring about discharge home. Exam Data for Last 24 hours Vital signs and Labs for Last 24 Hours: Temp Pulse Resp BP Pulse Ox 98.6 F 93 H 20 120/86 98 08/31/22 12:00 08/31/22 12:50 08/31/22 12:00 08/31/22 12:00 08/31/22 12:50 Laboratory Results - last 24 hr 08/31/22 15:50: Sodium 141, Potassium 4.4, Chloride 112 H, Carbon Dioxide 19 L, Anion Gap 14.4, BUN 11, Creatinine 0.60, Estimated Creat Clear 120, Estimated GFR 114, Est GFR ( Amer) 138, Glucose 119 H, Calcium 9.3, Magnesium 2.0 I & O for Last 24 hours: Intake & Output 08/28/22 08/29/22 08/30/22 08/31/22 23:59 23:59 23:59 23:59 Intake Total 360 / 360 360 / 360 Output Total 700 / 1050 650 / 650 Balance -340 / -690 -290 / -290 Weight 55.537 kg 57.606 kg Constitutional Constitutional: no acute distress, chronically ill appearing and cooperative *Routine HEENT Exam Head: Present normocephalic Eye: Present EOMI and PERRL ENT: Present mucous membranes moist *Routine Neck Exam Neck: Present supple; Absent lymphadenopathy *Routine Respiratory Exam Respiratory: Present rhonchi, normal respiratory effort and symmetric chest movement; Absent respiratory distress *Routine Cardiovascular Exam Cardiovascular: Present RRR; Absent murmur *Routine Abdominal Exam Abdominal: Present soft and normoactive bowel sounds; Absent tenderness *Routine Extremities Exam Extremities: Absent cyanosis, clubbing or edema *Routine Skin Exam Skin: Present warm; Absent rash *Routine Neurological Exam Neurological: Present alert, oriented X3, moving all extremities, vision grossly intact, hearing grossly intact and normal speech Routine Psychiatric Exam Psychiatric: Present normal affect and cooperative Assessment and Plan *Assessment and plan (1) Severe sepsis: Status: Acute Category: Medical Code(s): A41.9 - Sepsis, unspecified organism; R65.20 - Severe sepsis without septic shock (2) Acute respiratory failure with hypoxia: Status: Acute Category: Medical Code(s): J96.01 - Acute respiratory failure with hypoxia (3) Pneumomediastinum: Status: Acute Category: Medical Code(s): J98.2 - Interstitial emphysema (4) Methamphetamine dependence: Status: Acute Category: Medical Code(s): F15.20 - Other stimulant dependence, uncomplicated (5) Tobacco dependence: Status: Acute Category: Medical Code(s): F17.200 - Nicotine dependence, unspecified, uncomplicated (6) Hepatitis C infection: Status: Acute Category: Medical Code(s): B19.20 - Unspecified viral hepatitis C without hepatic coma Plan Severe sepsis?resolving, POA, tachypnea, tachycardia, leukocytosis, lactic acidosis, respiratory source. Transitioning to oral fluid resuscitation with improved lactic acid. Blood cultures sent. MRSA screening with IV antibiotic therapy. We will continue to trend laboratory studies and inflammatory markers. Acute hypoxic respiratory failure?no home O2, chronicity of tobacco dependence noted, chest imaging reviewed including chest x-ray and CTA of chest with pneumomediastinum and subcutaneous emphysema. Echocardiogram pending, continuous pulse oximetry monitoring with oxygen supplementation to maintain appropriate oxygen saturations. Avoiding NIPPV therapy. [facility] contact noted. Chinyere/
[2022-08-31 16:37] LABS: Procalcitonin 0.056 ng/mL (0.0-2.0)
[2022-08-31 16:47] LABS: MANUAL DIFFERENTIAL MANUAL DIFFERENTIAL (MANUAL DIFF)
[2022-08-31 19:13] LABS: Erythrocyte Sedimentation Rate 20 mm/hr (0-20)
--- NOTE | 2022-08-31 19:30 | PC.NURSE ---
Pt is A/Ox4. She has been very anxious most of the shift. I placed a fan in the room to try and help. I also told her when she feels like she is breathing to fast to use a straw to try and focus breathing. She has been on 2L NC all day. It helps her anxiety. She has tolerated diet today.
[2022-08-31 21:01] LABS: Lymphocytes % 7 % (10-50); Neutrophils % 93 % (42-76); Total Cells Counted 100
[2022-08-31 21:03] LABS: Platelet Estimate Normal; RBC Morphology Normal
[2022-08-31 22:19] LABS: Vancomycin,Trough 12.4 ug/mL (5.0-10.0)
--- NOTE | 2022-08-31 22:54 | XR_ITS ---
PROCEDURE INFORMATION: Exam: XR Chest Exam date and time: 08/31/2022 11:24 PM Age: 32 years old Clinical indication: Shortness of breath TECHNIQUE: Imaging protocol: Radiologic exam of the chest. Views: 1 view. COMPARISON: CR XR CHEST PORTABLE 08/30/2022 8:30 AM FINDINGS: Lungs: Unremarkable. No consolidation. Pleural spaces: Unremarkable. No pleural effusion. No pneumothorax. Heart/Mediastinum: Small lucency adjacent to the left cardiac apex may represent residual pneumomediastinum. Vasculature: Unremarkable. Bones/joints: Unremarkable. Soft tissues: Residual mild soft tissue emphysema in the supraclavicular regions. IMPRESSION: Resolving soft tissue emphysema and pneumomediastinum.
--- NOTE | 2022-08-31 23:27 | PC.NURSE ---
reported vanc trough to [facility] and verified current dose
--- NOTE | 2022-08-31 23:30 | PC.NURSE ---
Pt found to be hyperventilating with RR 30. O2 sat-92%. Fists clenched, back arched, and tongue protruding repeatedly at this time. Pt is able to answer questions appropriately, pt is A&OX4. She reports feeling anxious, and unable to breathe. Pt coached to take slow, deep breaths. Unable to do so at the time. Pts boyfriend at bedside and Pt denies illicit drug use for the past year at this time. Pati FARR called to bedside, Pts boyfriend stepped out of room. Pt now reports using a lot of meth and heroin last week New orders received and carried out.
[2022-09-01] VITALS (12 sets, daily range): BP systolic 105–124; BP diastolic 62–86; PULSE 73–106; RESP 16–24; TEMP 36.4–37.2; O2SAT 95–100; BMI 22.6
[2022-09-01 07:34] LABS: Basophils % 0.1 % (0.1-2.0); Eosinophils # 0.1 K/mm3 (0.0-0.4); Eosinophils % 0.5 % (0.1-12.0); Hematocrit 37.3 % (37.0-47.0); Hemoglobin 12.3 g/dL (12.2-16.2); Lymphocytes # 1.7 K/mm3 (0.7-4.5); Lymphocytes % 16.6 % (10-50); Mean Corpuscular HGB Conc 32.9 g/dL (31.8-35.4); Mean Corpuscular Hemoglobin 29.4 pg (27.0-31.2); Mean Corpuscular Volume 89.6 fl (81-99); Monocytes # 0.5 K/mm3 (0.1-1.0); Monocytes % 5.2 % (1.7-9.3); Neutrophils # 7.9 K/mm3 (1.8-7.8); Neutrophils % 77.6 % (37.0-80.0); Platelet Count 264 K/mm3 (142-424); Red Blood Count 4.17 M/mm3 (4.20-5.40); Red Cell Distribution Width 14.4 % (11.5-17.5); White Blood Count 10.2 K/mm3 (4.8-10.8)
[2022-09-01 07:38] LABS: Chloride 111 mmol/L (98-107); Potassium 3.6 mmoL/L (3.5-5.1); Sodium 139 mmol/L (136-145)
[2022-09-01 07:41] LABS: Anion Gap 15.6 mEq/L (5-15); Blood Urea Nitrogen 11 mg/dl (7-17); Carbon Dioxide 16 mmol/L (22.0-30.0); Creatinine Clearance Estimated 114 mL/min (50-200); Estimated Glomerular Filt Rate 114 ml/min (>60); GFR (African American) 138 ML/MIN (>60); Glucose 90 mg/dl (74-100)
[2022-09-01 08:12] LABS: Procalcitonin 0.052 ng/mL (0.0-2.0)
[2022-09-01 08:47] LABS: HIV Screen 4th Generation wRfx Non Reactive (Non Reactive)
--- NOTE | 2022-09-01 09:43 | EXP.PULM.CON ---
History of Present Illness History of present illness: Ms. Aguilar is a 32-year-old female prior history of drug abuse, sober as per the patient currently, carries a prior diagnosis of asthma on albuterol on as-needed basis presents to the hospital complaining of chest discomfort and pain and tightness found to have pneumomediastinum managing conservatively and pulmonary was called for further evaluation [facility] Disclaimer: The information contained in this section may have been updated after the patient was seen, as this information can be updated by other users. Medical History (Updated 09/01/22 @ 11:33 by Thor Sanchez MD) Acquired pneumomediastinum Active intravenous drug use Cerebral aneurysm Hepatitis C infection Heroin addiction Methamphetamine dependence Tobacco dependence Surgical History H/O craniotomy Family History Mother Lupus Father Diabetes Hypertension Social History (Updated 08/30/22 @ 15:18 by Dianna Amaya RN) Smoking Status: Current every day smoker tobacco type: cigarettes packs per day: 1 alcohol intake: current substance use type: heroin current occupational status: unemployed and disabled Travel in the last 8 weeks: None household members: significant other housing: apartment number of children: 4 Review of Systems Constitutional Constitutional: Reports anorexia and Reports body ache(s) Eyes Eyes: Denies eye discharge and Denies dry eyes ENT Ears, Nose, Mouth, and Throat: Reports disequilibrium, Reports epistaxis, Denies facial pain and Reports lip swelling *Cardiovascular Cardiovascular: Reports chest pain, Reports chest pain at rest, Reports dyspnea and Reports dyspnea on exertion *Respiratory Respiratory: Reports chest congestion, Reports cough, Reports dyspnea, Reports dyspnea on exertion, Denies excessive phlegm production and Denies wheezing *Gastrointestinal Gastrointestinal: Denies abdominal pain, Denies belching and Denies cramping *Musculoskeletal Musculoskeletal: Reports back pain, Reports myalgias and Reports other (No small joint swelling or Pain) *Neurologic Neurologic: Reports confusion and Reports disequilibrium Psychiatric Psychiatric: Reports confusion Endocrine Endocrine: Denies heat intolerance Hematologic/Lymphatic Hematologic/Lymphatic: Denies easy bleeding and Denies lymphadenopathy Allergic/Immunologic Allergic/Immunologic: Reports lip swelling and Denies wheezing Pulmonology Exam Inpatient Vital signs and Labs for Last 24 Hours: Temp Pulse Resp BP Pulse Ox 97.7 F 73 21 118/86 100 09/01/22 08:00 09/01/22 08:00 09/01/22 08:00 09/01/22 08:00 09/01/22 08:00 Laboratory Results - last 24 hr 08/30/22 15:55: HIV 1&2 Ag/Ab, 4th Gen Non reactive 08/31/22 15:50: WBC 13.5 H D, RBC 4.29, Hgb 12.8, Hct 39.3, MCV 91.5, MCH 29.7, MCHC 32.5, RDW 14.4, Plt Count 279, MPV 9.0, Neut % (Auto) 88.4 H, Lymph % (Auto) 9.1 L, [place] % (Auto) 2.2, Eos % (Auto) 0.2, Baso % (Auto) 0.1, Neut # (Auto) 11.9 H, Lymph # (Auto) 1.2, [place] # (Auto) 0.3, Eos # (Auto) 0.0, Baso # (Auto) 0.0, Total Counted 100, Neutrophils % (Manual) 93 H, Lymphocytes % (Manual) 7 L, Platelet Estimate Normal, RBC Morphology Normal, ESR 20 08/31/22 15:50: PT 11.3, INR 1.05 08/31/22 15:50: Sodium 141, Potassium 4.4, Chloride 112 H, Carbon Dioxide 19 L, Anion Gap 14.4, BUN 11, Creatinine 0.60, Estimated Creat Clear 120, Estimated GFR 114, Est GFR ( Amer) 138, Glucose 119 H, Calcium 9.3, Magnesium 2.0, C-Reactive Protein 36.0 H, Procalcitonin 0.056 08/31/22 21:51: Vancomycin Trough 12.4 H 09/01/22 07:05: WBC 10.2, RBC 4.17 L, Hgb 12.3, Hct 37.3, MCV 89.6, MCH 29.4, MCHC 32.9, RDW 14.4, Plt Count 264, MPV 9.0, Neut % (Auto) 77.6, Lymph % (Auto) 16.6, [place] % (Auto) 5.2, Eos % (Auto) 0.5, Baso % (Auto) 0.1, Neut # (Auto) 7.9 H, Lymph # (Auto) 1.7, [place] # (Auto) 0.5, Eos # (Auto) 0.1, Ba
[2022-09-01 11:24] LABS: Amphetamine/Metha Screen,Urine Negative ng/ml (<1000)
[2022-09-01 11:25] LABS: Barbiturates Screen,Urine Negative ng/ml (<200)
[2022-09-01 11:26] LABS: Benzodiazepines Screen,Urine Positive ng/ml (<200); Cannabinoid Screen,Urine Negative ng/ml (<50)
[2022-09-01 11:27] LABS: Cocaine Screen,Urine Negative ng/ml (<300); Methadone Screen,Urine Negative ng/ml (<300)
[2022-09-01 11:28] LABS: Opiate Screen,Urine Negative ng/ml (<300)
[2022-09-01 11:29] LABS: Phencyclidine Screen,Urine Negative ng/ml (<25)
--- NOTE | 2022-09-01 17:33 | EXP.ACUTE.PN ---
Subjective *Date: 09/01/22 *Time: 17:56 Interval history: Patient had a posturing event this morning on rounds. Initial concern for seizure-like activity however able to follow directions and had no focal neurologic deficits on exam. No loss of consciousness, postictal stage, incontinence. Occurred around the time of receiving her antibiotics. Unclear if there are culprit however low suspicion for seizure. Continue to monitor for today. No further episodes. Patient denies shortness of breath. Tolerating good p.o. intake. No nausea or vomiting. Medical Exam Vital signs and Labs for Last 24 Hours: Vital Signs Temp Pulse Pulse Resp BP Pulse Ox 09/01/22 08:00 100 09/01/22 14:17 99 09/01/22 12:00 97.9 F 83 22 124/82 98 09/01/22 08:00 97.7 F 73 21 118/86 100 09/01/22 06:45 97.9 F 91 H 24 115/82 100 09/01/22 06:19 99 H 09/01/22 06:19 98 H 09/01/22 06:19 97 09/01/22 04:00 98.7 F 85 16 117/79 100 08/31/22 23:52 98.6 F 81 24 115/75 100 08/31/22 23:00 98.7 F 103 H 30 H 127/87 92 L 08/31/22 20:00 99.2 F 107 H 20 134/83 100 08/31/22 19:00 104 H 08/31/22 19:00 72 08/31/22 19:00 99 Intake and Output 09/01/22 09/01/22 09/01/22 07:59 15:59 23:59 Intake Total 240 / 240 Output Total 350 / 350 Balance -110 / -110 Intake: Intake, Oral Amount 240 / 240 Output: Output, Urine Amount 350 / 350 Other: Number of Voids 0 Weight 54.476 kg 54.47 kg Patient Weight 09/01/22 23:59 Weight 54.47 kg Laboratory Results - last 24 hr 08/30/22 15:55: HIV 1&2 Ag/Ab, 4th Gen Non reactive 08/31/22 15:50: Total Counted 100, Neutrophils % (Manual) 93 H, Lymphocytes % (Manual) 7 L, Platelet Estimate Normal, RBC Morphology Normal, ESR 20 08/31/22 21:51: Vancomycin Trough 12.4 H 09/01/22 07:05: WBC 10.2, RBC 4.17 L, Hgb 12.3, Hct 37.3, MCV 89.6, MCH 29.4, MCHC 32.9, RDW 14.4, Plt Count 264, MPV 9.0, Neut % (Auto) 77.6, Lymph % (Auto) 16.6, [place] % (Auto) 5.2, Eos % (Auto) 0.5, Baso % (Auto) 0.1, Neut # (Auto) 7.9 H, Lymph # (Auto) 1.7, [place] # (Auto) 0.5, Eos # (Auto) 0.1, Baso # (Auto) 0.0 09/01/22 07:05: Sodium 139, Potassium 3.6, Chloride 111 H, Carbon Dioxide 16 L, Anion Gap 15.6 H, BUN 11, Creatinine 0.60, Estimated Creat Clear 114, Estimated GFR 114, Est GFR ( Amer) 138, Glucose 90 D, Calcium 9.0, Procalcitonin 0.052 09/01/22 11:01: Urine Opiates Screen Negative, Urine Methadone Screen Negative, Ur Barbituates Screen Negative, Ur Phencyclidine Scrn Negative, Ur Amphetamines Screen Negative, U Benzodiazepines Scrn Positive H, Urine Cocaine Screen Negative, U Marijuana (THC) Screen Negative I & O for Labs for Last 24 Hours: Intake & Output 08/29/22 08/30/22 08/31/22 09/01/22 23:59 23:59 23:59 23:59 Intake Total 360 / 360 480 / 480 240 / 240 Output Total 700 / 1050 650 / 650 350 / 350 Balance -340 / -690 -170 / -170 -110 / -110 Weight 55.537 kg 57.606 kg 54.47 kg Microbiology Reports for the Last 24 Hours: Microbiology 08/30/22 07:58 Blood Blood Culture - Preliminary NO GROWTH AFTER 48 HOURS 08/30/22 07:58 Blood Blood Culture - Preliminary NO GROWTH AFTER 48 HOURS Constitutional: Present no acute distress, average body habitus, chronically ill appearing and cooperative Head: Present atraumatic and normocephalic ENT: Present mucous membranes moist Comment:: edentulous Neck: Present normal inspection and full ROM; Absent tenderness Respiratory: Present normal respiratory effort; Absent accessory muscle use, rhonchi, stridor, wheezes or crackles Cardiac: Present Reg Rate and Rhythm GI: Present soft and normal bowel sounds; Absent distention or tenderness Extremities: Present normal inspection and full ROM; Absent edema Skin: Present intact; Absent erythema Neuro: Present Cranial Nerve 2-12 Intact, Motor Function Intact, DTR Norm/Equal
--- NOTE | 2022-09-01 18:10 | PC.NURSE ---
pt has rested t/o shift, has not complained of pain or SOA, room air sat 99% this shift, remains on 2L for comfort
[2022-09-02 03:48] VITALS: BP 113/76; PULSE 89; RESP 20; TEMP 36.8; O2SAT 99
--- NOTE | 2022-09-02 04:39 | PC.NURSE ---
Pt a/ox4. Pt c/o pain in hips and neck 1x t/o shift. PRN toradol administered, pt states favorable results. Tolerating 2 L nc well with sats in upper 90s. Lung sounds clear. Pt has had good appetite. Call light within reach.
[2022-09-02 04:51] VITALS: BMI 23.1
[2022-09-02 06:18] VITALS: PULSE 95; O2SAT 98
--- NOTE | 2022-09-02 07:00 | FL_ITS ---
FINAL REPORT CLINICAL HISTORY: . eval for pneumodiastinum 43 seonds fluoro omid e FINDINGS: ESOPHAGRAM HISTORY: Pneumomediastinum. Evaluate for esophageal perforation. PROCEDURE: The patient ingested Gastrografin. 22 fluoroscopic films were obtained. Fluoroscopy time: 43 seconds FINDINGS: No esophageal stricture is identified. No gastroesophageal reflux was demonstrated during the exam. No extravasation of contrast was seen. IMPRESSION: No esophageal perforation identified. Films reviewed , interpreted and dictated by Dr. Chanel. Transcribed by Lester Cartwright PA-C. Reviewed, Interpreted and Dictated by Vincenzo Chanel III, MD Transcribed by SHAR Patel Authenticated and [facility]
--- NOTE | 2022-09-02 07:00 | CT_ITS ---
FINAL REPORT CLINICAL HISTORY: eval pneumothorax COMPARISON: August 30, 2022 FINDINGS: Axial images were obtained from the lung apex to the mid abdomen by computed tomography. Coronal reformatted images were obtained. This study was performed with techniques to keep radiation doses as low as reasonably achievable, (ALARA). Individualized dose reduction techniques using automated exposure control or adjustment of mA and/or kV according to the patient's size were employed. There is no axillary adenopathy. There is no hilar or mediastinal adenopathy. There is marked interval improvement in the mediastinal air with a small amount of persistent air. Heart size is normal. There are small pleural effusions. Limited images of the upper abdomen are unremarkable. There are partially improved patchy pulmonary opacities that may represent improving pneumonia. IMPRESSION: Marked interval improvement in mediastinal air with a small amount of persistent air. Improving pneumonia. Reviewed, Interpreted and Dictated by Vincenzo Chanel III, MD Transcribed by [place] Authenticated and [facility]
[2022-09-02 07:03] LABS: Basophils % 0.5 % (0.1-2.0); Eosinophils # 0.1 K/mm3 (0.0-0.4); Eosinophils % 1.9 % (0.1-12.0); Hematocrit 37.2 % (37.0-47.0); Hemoglobin 12.4 g/dL (12.2-16.2); Lymphocytes # 2.3 K/mm3 (0.7-4.5); Lymphocytes % 36.6 % (10-50); Mean Corpuscular HGB Conc 33.5 g/dL (31.8-35.4); Mean Corpuscular Hemoglobin 29.8 pg (27.0-31.2); Mean Corpuscular Volume 89.2 fl (81-99); Mean Platelet Volume 8.8 fl (7.4-10.4); Monocytes # 0.4 K/mm3 (0.1-1.0); Monocytes % 5.6 % (1.7-9.3); Neutrophils # 3.5 K/mm3 (1.8-7.8); Neutrophils % 55.5 % (37.0-80.0); Platelet Count 258 K/mm3 (142-424); Red Blood Count 4.17 M/mm3 (4.20-5.40); Red Cell Distribution Width 14.7 % (11.5-17.5); White Blood Count 6.2 K/mm3 (4.8-10.8)
[2022-09-02 07:05] LABS: Chloride 113 mmol/L (98-107); Potassium 3.4 mmoL/L (3.5-5.1); Sodium 140 mmol/L (136-145)
[2022-09-02 07:08] LABS: Anion Gap 11.4 mEq/L (5-15); Blood Urea Nitrogen 14 mg/dl (7-17); Calcium 8.3 mg/dl (8.4-10.2); Carbon Dioxide 19 mmol/L (22.0-30.0); Creatinine Clearance Estimated 99 mL/min (50-200); Estimated Glomerular Filt Rate 96 ml/min (>60); GFR (African American) 116 ML/MIN (>60); Glucose 89 mg/dl (74-100)
--- NOTE | 2022-09-02 07:53 | EXP.DC.SUM ---
General Admission date:: 08/30/22 Discharge date: 09/02/22 HPI HPI HPI: This is a 32-year-old female that presents to [facility] emergency department with concerns of shortness of air. Her past medical history significant for tobacco dependence, intravenous drug use, methamphetamine addiction, heroin addiction, cerebral aneurysm status postcraniotomy and hepatitis C. She is accompanied by her boyfriend Jonathon Sanches who assists with the history. She reports several days of difficulty with inspiration, shortness of air not resolving with home care. She reports over the last 48 hours increasing shortness of air with associated chest tightness and pain to her neck and shoulders. She reports some cough but no associated nasal congestion, postnasal drip, acute dyspnea at rest or diaphoresis. She denies associated confusion, syncope or palpitations. There has been no associated nausea, vomiting, retching or diarrhea. She is unvaccinated to COVID?19 or influenza. In the ED she presented with tachycardia tachypnea and room air oxygen saturations of 85%. Initial chest x-ray imaging identified pneumomediastinum with subcutaneous neck emphysema. A follow-up CTA of the chest identified no PE with trace pleural fluid and air. It confirmed the extensive pneumomediastinum and subcutaneous neck emphysema. ED physician contacted Dr. Darnell Costa cardiothoracic surgeon at [facility] for transition of care and they recommended no surgical intervention and to continue to observe. The patient's laboratory studies were significant for lactic acidosis leukocytoses with a urine drug screen positive for methamphetamine negative for opiates. Her ECG identified sinus tachycardia with no acute ST-T changes. She was started on IV cefepime and vancomycin and azithromycin. Her COVID?19 PCR is negative. Hospital Course Hospital Course Hospital Course: 32-year-old female with pneumomediastinum and new oxygen requirement.? Episode of posturing on morning of day before discharge however no focal neurologic deficits. No further episodes during admission. Patient has overall done well and seeing improvement with respiratory status. Meeting discharge criteria. Problems addressed as follows: Pneumomediastinum Acute hypoxic respiratory failure ? Admitted for acute hypoxia, concern for pneumonia, pneumomediastinum. Started on supplemental oxygen to help with resorption of free air in her thoracic cavity. She is not on oxygen at home. Smokes regularly. Has overall done well with conservative management. Tolerating antibiotics, will transition oral course to complete outpatient regimen. Pulmonology consulted, appreciate their recommendations. -On admission, [facility] was contacted, CT surgery stated there were no operative recommendations at this time. Patient not a candidate to transfer. -Plan to continue Advair 500 BID. Stable on room air on day of discharge, no indication to continue supplemental oxygen. Continue albuterol inhaler every 6 hours as needed at home. Repeat CT on day of discharge showed significant improvement in bilateral pneumothoraces and pneumomediastinum. Cultures from sepsis work-up and remained negative. Barium swallow obtained, formal read still pending. No obvious extravasation or leak on imaging. -Recommend follow-up with pulmonology as an outpatient Posturing -No clear seizure activity.? Patient able to follow directions with normal neuro exam.? Unclear etiology however low concern for seizure.? Suspect secondary to malingering or substance use/withdrawal. Methamphetamine dependence Substance use disorder -intravenous drug use including heroin, urine drug screen positive for methamphetamines but not opioids -Psychiatry evaluated patient during admission, plan for close follow-up to further discuss treatment for substance dependence/abuse. Recommend continuing Suboxone therapy on discharge. Hepatitis C infection?co
[2022-09-02 08:00] VITALS: BP 114/75; PULSE 75; RESP 16; TEMP 37.1; O2SAT 97
--- NOTE | 2022-09-02 09:57 | PC.NURSE ---
Pt is off floor at this time to RAD.
--- NOTE | 2022-09-02 10:00 | EXP.PULM.PN ---
Subjective *Date: 09/02/22 *Time: 11:50 Interval history: No acute respiratory events overnight. Patient admits continued improvement in his respiratory symptoms. Pulmonology Exam Inpatient Vital signs and Labs for Last 24 Hours: Temp Pulse Resp BP Pulse Ox 98.8 F 75 16 114/75 97 09/02/22 08:00 09/02/22 08:00 09/02/22 08:00 09/02/22 08:00 09/02/22 08:00 Laboratory Results - last 24 hr 09/01/22 11:01: Urine Opiates Screen Negative, Urine Methadone Screen Negative, Ur Barbituates Screen Negative, Ur Phencyclidine Scrn Negative, Ur Amphetamines Screen Negative, U Benzodiazepines Scrn Positive H, Urine Cocaine Screen Negative, U Marijuana (THC) Screen Negative 09/02/22 06:30: WBC 6.2 D, RBC 4.17 L, Hgb 12.4, Hct 37.2, MCV 89.2, MCH 29.8, MCHC 33.5, RDW 14.7, Plt Count 258, MPV 8.8, Neut % (Auto) 55.5, Lymph % (Auto) 36.6, [place] % (Auto) 5.6, Eos % (Auto) 1.9, Baso % (Auto) 0.5, Neut # (Auto) 3.5, Lymph # (Auto) 2.3, [place] # (Auto) 0.4, Eos # (Auto) 0.1, Baso # (Auto) 0.0 09/02/22 06:30: Sodium 140, Potassium 3.4 L, Chloride 113 H, Carbon Dioxide 19 L, Anion Gap 11.4, BUN 14 D, Creatinine 0.70, Estimated Creat Clear 99, Estimated GFR 96, Est GFR ( Amer) 116, Glucose 89, Calcium 8.3 L I & O for Labs for Last 24 Hours: Intake & Output 08/30/22 08/31/22 09/01/22 09/02/22 23:59 23:59 23:59 23:59 Intake Total 360 / 360 480 / 480 2047 / 2047 Output Total 700 / 1050 650 / 650 951 / 951 Balance -340 / -690 -170 / -170 1097 / 1097 Weight 122 lb 7 oz 127 lb 120 lb 1.373 oz 122 lb 3.2 oz Microbiology Reports for the Last 24 Hours: Microbiology 08/30/22 07:58 Blood Blood Culture - Preliminary NO GROWTH AFTER 48 HOURS 08/30/22 07:58 Blood Blood Culture - Preliminary NO GROWTH AFTER 48 HOURS Constitutional: Present no acute distress Head: Present normocephalic and atraumatic ENT: Present normal exam and mucous membranes moist Neck: Present normal inspection and full ROM Respiratory: Present able to speak in complete sentences; Absent respiratory distress, rhonchi, wheezes, crackles or diminished air movement Comment:: Sub Q Emphysema Cardiac: Present S1/S2, Tachycardia and radial pulses present GI: Present soft and distention; Absent tenderness or guarding Rectal (female): Present deferred (female): Present deferred Skin: Present intact; Absent cyanosis or jaundice Neuro: Present alert, awake and oriented x 3 Extremities: Present normal inspection; Absent clubbing or cyanosis Psychiatric: Present normal affect and cooperative Assessment and Plan *Assessment and plan (1) Acute respiratory failure with hypoxia: Status: Acute Category: Medical Code(s): J96.01 - Acute respiratory failure with hypoxia (2) Acquired pneumomediastinum: Status: Acute Category: Medical Code(s): J98.2 - Interstitial emphysema Plan #Pneumomediastinum: 32-year-old female history of IV drug abuse cerebral aneurysm status postcraniotomy, hep C presented to the hospital on 08/30/22 with worsening respiratory distress. On admission she was found to have extensive pneumomediastinum. Presentation labs leukocytosis with lactic acidosis. Hemodynamically stable. Started on bank cefepime and azithromycin CT on admission reviewed, extensive pneumomediastinum with trace bilateral pneumothorax medially. No dense consolidation/cavitary lesions noted. Contrast suboptimal timing, no obvious PE noted in proximal pulmonary arteries. Repeat CTA from this morning 09/02/2022 reviewed, significant improvement in the noted pneumomediastinum and pneumothorax. Blood cultures negative so far. Plan: -Continue Advair 500 BID -Continue nasal oxygen supplementation to maintain O2 saturation goal of 95% and above -Continue DuoNebs every 6 hours on as-needed basis -Recommend barium swallow evaluation. #Thank you for involving pulmonary in this patient care.
--- NOTE | 2022-09-02 11:11 | PC.NURSE ---
RESP CARE NOTE: Pt room air oxygen saturation at 100%. Oxygen on standby, pt up moving about the room.
[2022-09-02 11:43] VITALS: PULSE 89; O2SAT 98
[2022-09-02 12:00] VITALS: BP 113/72; PULSE 97; RESP 16; TEMP 37.2; O2SAT 96
--- NOTE | 2022-09-02 12:17 | P.PN_ITS ---
Subjective *Date: 09/02/22 *Time: 12:17 Medical Exam Vital signs and Labs for Last 24 Hours: Vital Signs Temp Pulse Pulse Resp BP Pulse Ox 09/02/22 11:43 89 09/02/22 11:43 89 09/02/22 11:43 98 09/02/22 08:00 98.8 F 75 16 114/75 97 09/02/22 06:18 95 H 09/02/22 06:18 95 H 09/02/22 06:18 98 09/02/22 03:48 98.2 F 89 20 113/76 99 09/01/22 23:58 97 09/01/22 23:53 77 09/01/22 23:53 78 09/01/22 23:40 97.5 F L 106 H 18 105/71 L 95 09/01/22 20:00 100 09/01/22 20:00 98.9 F 95 H 18 106/62 L 100 09/01/22 16:00 98 F 88 17 109/67 L 100 09/01/22 18:22 99 H 09/01/22 18:22 100 H 09/01/22 14:17 99 Intake and Output 09/01/22 09/02/22 09/02/22 23:59 07:59 15:59 Intake Total 1688 / 2048 Output Total 600 / 951 Balance 1088 / 1097 Intake: Intake, Oral Amount 240 / 600 Intake, Total IV Amount 1448 / 1448 0.9 % Sodium Chloride 1,000 ml 748 / 748 @ 75 mls/hr IV .[id number] PATTI Rx# :[id number] Azithromycin 500 mg In 0.9 % 250 / 250 Sodium Chloride 250 ml @ 250 mls/hr IV 0800 PATTI Rx#:[id number] Cefepime HCl 2 gm In 0.9 % 200 / 200 Sodium Chloride 100 ml @ 200 mls/hr IV Q8H PATTI Rx#:[id number] Vancomycin/Water For Inj (Peg) 250 / 250 1.25 gm In 250 ml @ 125 mls/hr IV Q12H PATTI Rx#:[id number] Output: Output, Urine Amount 600 / 951 Other: Weight 55.429 kg Patient Weight 09/02/22 23:59 Weight 55.429 kg Laboratory Results - last 24 hr 09/02/22 06:30: WBC 6.2 D, RBC 4.17 L, Hgb 12.4, Hct 37.2, MCV 89.2, MCH 29.8, MCHC 33.5, RDW 14.7, Plt Count 258, MPV 8.8, Neut % (Auto) 55.5, Lymph % (Auto) 36.6, [place] % (Auto) 5.6, Eos % (Auto) 1.9, Baso % (Auto) 0.5, Neut # (Auto) 3.5, Lymph # (Auto) 2.3, [place]trami # (Auto) 0.4, Eos # (Auto) 0.1, Baso # (Auto) 0.0 09/02/22 06:30: Sodium 140, Potassium 3.4 L, Chloride 113 H, Carbon Dioxide 19 L , Anion Gap 11.4, BUN 14 D, Creatinine 0.70, Estimated Creat Clear 99, Estimated GFR 96, Est GFR ( Amer) 116, Glucose 89, Calcium 8.3 L I & O for Labs for Last 24 Hours: Intake & Output 08/30/22 08/31/22 09/01/22 09/02/22 23:59 23:59 23:59 23:59 Intake Total 360 / 360 480 / 480 2048 / 2048 Output Total 700 / 1050 650 / 650 951 / 951 Balance -340 / -690 -170 / -170 1097 / 1097 Weight 55.537 kg 57.606 kg 54.47 kg 55.429 kg Microbiology Reports for the Last 24 Hours: Microbiology 08/30/22 15:40 Nose - Nasal MRSA Culture - Final Negative 08/30/22 07:58 Blood Blood Culture - Preliminary NO GROWTH AFTER 48 HOURS 08/30/22 07:58 Blood Blood Culture - Preliminary NO GROWTH AFTER 48 HOURS The patient's infection will respond to the chosen ABx?: Yes Is the patient receiving the right drug, dose, and route?: Yes Could a more targeted ABx be ordered?: No
--- NOTE | 2022-09-02 13:00 | EXP.BH.CONS ---
History of Present Illness *Admission Date: 08/30/22 *History of present illness: Consulted on patient related to drug use. -she was interviewed alone -her boyfriend stepped out of the room -she states that they have been together for 2 year -she is still using; but he thinks that she has been clean for a year -she states that she didn't overdose the other night; she just couldn't breathe -she states that she is constantly using; meth and heroin -that she will snort or shoot -she is trying to only snort -he thinks that she has been clean for a year -she doesn't tell him the truth -even though they live together -she states that she will get her 'stuff' when he is at work -and she is at home by herself -she gets disability -does not work a job -she states that she does have anxiety and depression -this has been ongoing for some time -she states that she liked the vraylar -she was on this in April 2022; when [facility] -she didn't follow-up as scheduled -she states that she couldn't come back cause her car was in the shop -she does state that she has some withdrawal symptoms -that she is stiffing up; like a seizure -she states that she has been clean now for 3 days -since she has been here -having a lot of cravings -she states that she wants to get clean -but she is scared of reality -needs to quit smoking cigarettes as well for her physical health -no cigarettes x3 days -she states that she likes to open her purse and look at them; that it helps her knowsing they are there -she states that she likes to get high -this is the reason she can't kick it -she likes the feeling -she is in a suboxone clinic -at [facility] -she states that her dose is 1.5 tablets daily; she was at 2 tablets -but they decreased her cause of dropping dirty -they threatened to kick her out for 6 months if she dropped dirty again -she was supposed to go there yesterday -but was here in the hospital -her boyfriend did call them to let them know that she was inpatient for medical reasons -she states that her boyfriend searched her purse yesterday; found meth and a needle -she states that he flushed the meth in the toilet here; and he took the needle home -denies any SI/HI/AVH -denies ever attempting suicide [facility] Disclaimer: The information contained in this section may have been updated after the patient was seen, as this information can be updated by other users. Medical History (Updated 09/02/22 @ 13:09 by Colette Orellana APRN) Acquired pneumomediastinum Active intravenous drug use Cerebral aneurysm Hepatitis C infection Heroin addiction Methamphetamine dependence Tobacco dependence Surgical History H/O craniotomy Family History Diabetes Father Lupus Mother Hypertension Father Social History (Updated 08/30/22 @ 15:18 by Dianna Amaya RN) Smoking Status: Current every day smoker tobacco type: cigarettes packs per day: 1 alcohol intake: current substance use type: heroin current occupational status: unemployed and disabled Travel in the last 8 weeks: None household members: significant other housing: apartment number of children: 4 Review of Systems Review of Systems Review of systems:: other (did not review; only psychiatric symptoms) ENT Ears, Nose, Mouth, and Throat: Reports disequilibrium *Neurologic Neurologic: Reports confusion, Denies convulsions, Reports disequilibrium and Reports memory loss Psychiatric Psychiatric: Reports anhedonia, Reports anxiety, Reports confusion, Reports depression, Reports hopelessness, Reports memory loss and Reports mood swings Meds Home Medications and Allergies Home Medications Medication Instructions Recorded Confirmed Type albuterol sulfate 90 mcg/actuation 2 inh inhalation Q6HP PRN 08/30/22 08/30/22 History aerosol inhaler (ProAir H
--- NOTE | 2022-09-02 15:00 | HMH.PHAINT1 ---
Pharmacy Intervention Comments: Discharge counseling completed at bedside with the patient. Discussed new medications (cefdinir and fluticasone propionate-salmeterol) and continued medications. Overviewed indication and possible side effects/mitigation strategies for each new medication. Patient verbalized understanding and has no questions or concerns at this time.
--- NOTE | 2022-09-03 13:20 | CARE MANAGER ---
Attempted post-discharge phone interview, no answer.
--- NOTE | 2022-09-04 14:02 | CARE MANAGER ---
Patient states that she is doing better. She is aware of medications and follow up appointments. Denies questions and concerns.
[2022-09-10 00:06] LABS: Amphetamine Positive (.); Amphetamine (GC/MS) >3000 ng/mL (Cutoff=500); Amphetamines Positive (.); Methamphetamine Positive (.); Methamphetamine (GC/MS) >3000 ng/mL (Cutoff=500)
== END 2022-09-02 15:15 | disposition home or self-care (01) | DRG 199 ==
LOC: ER 12:09 → 2ND 12:26
PROVIDERS: Internal Medicine Pulmonary Disease; Admitting Provider Family Medicine; Emergency Provider Emergency Medicine; PCP Family Medicine; Visit Provider Internal Medicine Adolescent Medicine
DX: J98.2 Interstitial emphysema (principal); J96.01 Acute respiratory failure with hypoxia; J45.901 Unspecified asthma with (acute) exacerbation; F15.20 Other stimulant dependence, uncomplicated; F11.20 Opioid dependence, uncomplicated; F17.210 Nicotine dependence, cigarettes, uncomplicated; B19.20 Unspecified viral hepatitis C without hepatic coma
CPT/HCPCS: 36415; 71045; 71250; 71275; 74220; 80048; 80053; 80202; 80305; 80324; 81001; 82803; 83605; 83735; 83880; 84145; 84484; 84703; 85007; 85025; 85378; 85610; 85651; 86140; 86703; 87040; 87081; 93005; 93306; 94640; 94761; 99285; C9803; G0432; J0456; Q9967; U0003; U0005

== ENCOUNTER → 2022-09-09 13:52 | Outpatient (CLI) | payer MEDICAID, SELFPAY ==
--- NOTE | 2022-09-09 13:57 | XR_ITS ---
FINAL REPORT CLINICAL HISTORY: Pneumothotax COMPARISON: August 30, 2022 FINDINGS: Two views of the chest were obtained. The heart size and pulmonary vascularity are within normal limits. The mediastinum is normal. No acute pulmonary abnormality is identified. There has been interval resolution of neck soft tissue air. There is no pneumothorax. The bony thorax is intact. IMPRESSION: No pneumothorax. Interval resolution of neck soft tissue air. Reviewed, Interpreted and Dictated by Vincenzo Chanel III, MD Transcribed by Kristie Stephen Authenticated and [facility]
== END ==
PROVIDERS: PCP Family Medicine; Visit Provider Internal Medicine Pulmonary Disease
DX: R06.02 Shortness of breath (principal)
CPT/HCPCS: 71046

== ENCOUNTER → 2022-09-16 15:15 | Outpatient (CLI) | payer MEDICAID, SELFPAY ==
[2022-09-16 18:34] LABS: Alanine Aminotransferase 22 U/L (12-78); Albumin Level 4.1 g/dl (3.5-5.0); Albumin/Globulin Ratio 1.6 (1.1-1.8); Alkaline Phosphatase 46 U/L (38-126); Anion Gap 10.7 mEq/L (5-15); Aspartate Amino Transferase 31 U/L (14-36); Bilirubin,Total 0.5 mg/dl (0.2-1.3); Blood Urea Nitrogen 12 mg/dl (7-17); Calcium 9.4 mg/dl (8.4-10.2); Carbon Dioxide 29 mmol/L (22.0-30.0); Chloride 103 mmol/L (98-107); Estimated Glomerular Filt Rate 96 ml/min (>60); GFR (African American) 116 ML/MIN (>60); Globulin 2.6 g/dL (1.3-3.2); Glucose 85 mg/dl (74-100); Potassium 4.7 mmoL/L (3.5-5.1); Sodium 138 mmol/L (136-145); Total Protein,Serum 6.7 g/dl (6.3-8.2)
[2022-09-16 18:50] LABS: Basophils # 0.1 K/mm3 (0-0.2); Basophils % 1.2 % (0.1-2.0); Eosinophils # 0.2 K/mm3 (0.0-0.4); Eosinophils % 3.7 % (0.1-12.0); Hematocrit 39.6 % (37.0-47.0); Hemoglobin 12.9 g/dL (12.2-16.2); Lymphocytes # 2.5 K/mm3 (0.7-4.5); Lymphocytes % 38.1 % (10-50); Mean Corpuscular HGB Conc 32.6 g/dL (31.8-35.4); Mean Corpuscular Hemoglobin 30.8 pg (27.0-31.2); Mean Corpuscular Volume 94.5 fl (81-99); Mean Platelet Volume 9.5 fl (7.4-10.4); Monocytes # 0.5 K/mm3 (0.1-1.0); Monocytes % 7.8 % (1.7-9.3); Neutrophils # 3.2 K/mm3 (1.8-7.8); Neutrophils % 49.3 % (37.0-80.0); Platelet Count 253 K/mm3 (142-424); Red Blood Count 4.19 M/mm3 (4.20-5.40); Red Cell Distribution Width 14.8 % (11.5-17.5); White Blood Count 6.5 K/mm3 (4.8-10.8)
[2022-09-21 21:57] LABS: Hepatitis C Antibody >11.0
== END ==
PROVIDERS: PCP Nurse Practitioner Family; Visit Provider Nurse Practitioner Family
DX: B19.20 Unspecified viral hepatitis C without hepatic coma (principal)
CPT/HCPCS: 80053; 85025; 87380; 87522

== ENCOUNTER → 2022-12-09 10:41 | Outpatient (CLI) | payer MEDICAID, SELFPAY ==
[2022-12-09 11:36] LABS: Basophils % 0.6 % (0.1-2.0); Eosinophils # 0.8 K/mm3 (0.0-0.4); Eosinophils % 12.5 % (0.1-12.0); Hematocrit 37.6 % (37.0-47.0); Hemoglobin 12.5 g/dL (12.2-16.2); Lymphocytes # 2.5 K/mm3 (0.7-4.5); Lymphocytes % 41.7 % (10-50); Mean Corpuscular HGB Conc 33.2 g/dL (31.8-35.4); Mean Corpuscular Hemoglobin 30.6 pg (27.0-31.2); Mean Corpuscular Volume 91.9 fl (81-99); Mean Platelet Volume 9.2 fl (7.4-10.4); Monocytes # 0.4 K/mm3 (0.1-1.0); Monocytes % 6.5 % (1.7-9.3); Neutrophils # 2.3 K/mm3 (1.8-7.8); Neutrophils % 38.7 % (37.0-80.0); Platelet Count 258 K/mm3 (142-424); Red Blood Count 4.09 M/mm3 (4.20-5.40); Red Cell Distribution Width 13.5 % (11.5-17.5)
[2022-12-09 14:38] LABS: Alanine Aminotransferase 16 U/L (12-78); Albumin Level 3.8 g/dl (3.5-5.0); Albumin/Globulin Ratio 1.6 (1.1-1.8); Alkaline Phosphatase 51 U/L (38-126); Anion Gap 11.2 mEq/L (5-15); Aspartate Amino Transferase 28 U/L (14-36); Bilirubin,Total 0.2 mg/dl (0.2-1.3); Blood Urea Nitrogen 6 mg/dl (7-17); Calcium 8.1 mg/dl (8.4-10.2); Carbon Dioxide 29 mmol/L (22.0-30.0); Chloride 100 mmol/L (98-107); Estimated Glomerular Filt Rate 114 ml/min (>60); GFR (African American) 138 ML/MIN (>60); Globulin 2.4 g/dL (1.3-3.2); Glucose 93 mg/dl (74-100); Potassium 4.2 mmoL/L (3.5-5.1); Sodium 136 mmol/L (136-145); Total Protein,Serum 6.2 g/dl (6.3-8.2)
[2022-12-12 01:04] LABS: Hepatitis C Antibody Reactive
== END ==
PROVIDERS: PCP Nurse Practitioner Family; Visit Provider Nurse Practitioner Family
DX: B19.20 Unspecified viral hepatitis C without hepatic coma (principal)
CPT/HCPCS: 36415; 80053; 85025; 87380; 87522

== ENCOUNTER → 2023-01-21 19:06 | Outpatient (CLI) | payer MEDICAID, SELFPAY | PROVIDERS: PCP Student in an Organized Health Care Education/Training Program; Visit Provider Student in an Organized Health Care Education/Training Program | DX: R39.89 Other symptoms and signs involving the genitourinary system (principal); J02.9 Acute pharyngitis, unspecified | CPT/HCPCS: 87070; 87086 ==

== ENCOUNTER → 2023-01-22 13:52 | Outpatient (CLI) | payer MEDICAID, SELFPAY ==
[2023-01-22 14:58] LABS: Basophils % 0.6 % (0.1-2.0); Eosinophils # 0.5 K/mm3 (0.0-0.4); Eosinophils % 7.9 % (0.1-12.0); Hematocrit 37.8 % (37.0-47.0); Hemoglobin 12.4 g/dL (12.2-16.2); Lymphocytes # 1.3 K/mm3 (0.7-4.5); Lymphocytes % 22.3 % (10-50); Mean Corpuscular HGB Conc 32.7 g/dL (31.8-35.4); Mean Corpuscular Hemoglobin 29.8 pg (27.0-31.2); Mean Platelet Volume 8.4 fl (7.4-10.4); Monocytes # 0.4 K/mm3 (0.1-1.0); Monocytes % 6.8 % (1.7-9.3); Neutrophils # 3.5 K/mm3 (1.8-7.8); Neutrophils % 62.3 % (37.0-80.0); Platelet Count 192 K/mm3 (142-424); Red Blood Count 4.15 M/mm3 (4.20-5.40); Red Cell Distribution Width 14.3 % (11.5-17.5); White Blood Count 5.6 K/mm3 (4.8-10.8)
[2023-01-22 15:31] LABS: Alanine Aminotransferase 21 U/L (12-78); Albumin Level 4.1 g/dl (3.5-5.0); Albumin/Globulin Ratio 1.6 (1.1-1.8); Alkaline Phosphatase 48 U/L (38-126); Aspartate Amino Transferase 31 U/L (14-36); Bilirubin,Total 0.5 mg/dl (0.2-1.3); Blood Urea Nitrogen 7 mg/dl (7-17); Calcium 8.4 mg/dl (8.4-10.2); Carbon Dioxide 29 mmol/L (22.0-30.0); Chloride 100 mmol/L (98-107); Chol/HDL Ratio 2.3 (1-3.5); Cholesterol 165 mg/dl (140-200); Estimated Glomerular Filt Rate 114 ml/min (>60); GFR (African American) 138 ML/MIN (>60); Globulin 2.5 g/dL (1.3-3.2); Glucose 97 mg/dl (74-100); HDL Cholesterol 71 mg/dl (40-60); Sodium 136 mmol/L (136-145); Total Protein,Serum 6.6 g/dl (6.3-8.2); Triglycerides 111 mg/dl (30-150); VLDL Cholesterol 22 mg/dL (0-40)
[2023-01-22 15:42] LABS: Direct LDL Cholesterol 82.12 mg/dL (100-129)
== END ==
PROVIDERS: PCP Family Medicine; Visit Provider Student in an Organized Health Care Education/Training Program
DX: R63.5 Abnormal weight gain (principal); Z79.899 Other long term (current) drug therapy
CPT/HCPCS: 36415; 80053; 80061; 84443; 85025

== ENCOUNTER → 2023-02-09 12:30 | Outpatient (CLI) | payer MEDICAID, SELFPAY ==
[2023-02-09 15:55] LABS: Triiodothryronine (T3) Uptake 28 % (23.5-40.5)
[2023-02-09 17:38] LABS: Free Thyroxine Index 1.1 ug/dL (5.93-13.13); T4 (Thyroxine) 4.1 ug/dl (5.53-11.0)
== END ==
PROVIDERS: PCP Student in an Organized Health Care Education/Training Program; Visit Provider Student in an Organized Health Care Education/Training Program
DX: R63.5 Abnormal weight gain (principal)
CPT/HCPCS: 36415; 84436; 84443; 84479

== ENCOUNTER → 2023-04-16 11:00 | Outpatient (CLI) | payer MEDICAID, SELFPAY | PROVIDERS: PCP Nurse Practitioner Family; Visit Provider Nurse Practitioner Family | DX: N39.0 Urinary tract infection, site not specified (principal) | CPT/HCPCS: 87086 ==

== ENCOUNTER 2023-04-26 17:22 | Emergency (ER) | payer MEDICAID, SELFPAY ==
[2023-04-26 17:22] VITALS: BP 96/68; PULSE 110; RESP 14; TEMP 36.8; O2SAT 97; BMI 30.6
--- NOTE | 2023-04-26 17:25 | PC.NURSE ---
Addendum entered by Peyton Worrell RN 04/26/23 17:39: aware Original Note: NIHSS 0
[2023-04-26 17:32] VITALS: BMI 30.6
--- NOTE | 2023-04-26 17:32 | XR_ITS ---
PROCEDURE INFORMATION: Exam: XR Chest Exam date and time: 04/26/2023 5:40 PM Age: 33 years old Clinical indication: Other: Weakness TECHNIQUE: Imaging protocol: Radiologic exam of the chest. Views: 2 views. COMPARISON: CR XR CHEST 2V 09/09/2022 1:58 PM FINDINGS: Lungs: Unremarkable. No consolidation. Pleural spaces: Unremarkable. No pleural effusion. No pneumothorax. Heart/Mediastinum: Unremarkable. No cardiomegaly. Bones/joints: Unremarkable. IMPRESSION: No acute findings.
[2023-04-26 17:34] LABS: Coronavirus 19, PCR Not Detected (NotDetected); Influenza A, PCR Not Detected (NotDetected); Influenza B, PCR Not Detected (NotDetected)
--- NOTE | 2023-04-26 17:36 | HMH.EDGENADL ---
Discharge Plan Disposition Patient Disposition: Left Against Medical Advice Condition: Undetermined Chief Complaint: Weakness Prescriptions Prescriptions: No Action fluoxetine [Prozac] 40 mg capsule 40 mg PO DAILY Qty: 30 2RF fluticasone propion-salmeterol 500-50 mcg/dose blister with device 1 inh inhalation BID 30 Days Qty: 1 0RF albuterol sulfate [ProAir HFA] 90 mcg/actuation HFA aerosol inhaler See Rx Instructions .ROUTE .COMPLEX Qty: 8.5 3RF Dose Instruction: INHALE 2 PUFFS BY MOUTH EVERY 6 HOURS NEEDED FOR WHEEZING Rx Instructions: INHALE 2 PUFFS BY MOUTH EVERY 6 HOURS NEEDED FOR WHEEZING levothyroxine 25 mcg capsule 25 mcg PO DAILY Qty: 30 2RF quetiapine [Seroquel] 100 mg tablet 100 mg PO QHS Qty: 30 1RF Referrals Follow up/Referrals: Tian Hoover APRN [Primary Care Provider] - See instructions Clinical Impressions Clinical Impression: Fungal sinusitis Discharge ED Provider: Chu Stevenson General Adult HPI General Chief complaint: Weakness Stated complaint: tingly all over, tiredness Time Seen by Provider: 04/26/23 17:30 History of Present Illness HPI narrative: Patient has a PMHx significant for DAREK, including meth and heroin, reportedly in sobriety, ruptured aneursym status postcraniotomy several years ago, asthma, hypothyroidism who presents to the ED with complaints of generalized malaise, weakness, dehydration. Patient notes that for the past 2 months, she has been battling a sinus infection. Patient has seen her primary care doctor who has managed her with [id number] medications. 3 days ago, patient went to an urgent care center was started on doxycycline for the sinus infection. Over the past 3 days, patient notes that she has had more dehydration, weakness and malaise, body aches and arthralgias. Patient came into the ED with complaints of stroke symptoms , but was able to ambulate to the ED and ambulate from wheelchair to bed. NIH stroke scale on examination was 0. Related Data Previous Rx's Medication Instructions Recorded albuterol sulfate 90 mcg/actuation See Rx Instructions .Route 12/03/22 aerosol inhaler (ProAir HFA) .COMPLEX #8.5 grams levothyroxine 25 mcg capsule 25 mcg PO DAILY #30 caps 02/11/23 quetiapine 100 mg tablet (Seroquel) 100 mg PO QHS #30 tabs 03/19/23 fluoxetine 40 mg capsule (Prozac) 40 mg PO DAILY #30 caps 04/09/23 fluticasone 500 mcg-salmeterol 50 1 inh inhalation BID 30 days #1 ea 04/09/23 mcg/dose blistr powdr for inhalation Allergies Allergy/AdvReac Type Severity Reaction Status Date / Time amoxicillin Allergy Severe Hives Verified 04/09/23 13:22 erythromycin base Allergy Severe Hives Verified 04/09/23 13:22 Penicillins Allergy Severe Hives Verified 04/09/23 13:22 [facility] Disclaimer: The information contained in this section may have been updated after the patient was seen, as this information can be updated by other users. Medical History Acquired pneumomediastinum Active intravenous drug use Asthma Cerebral aneurysm Hepatitis C infection Heroin addiction Insomnia Major depressive disorder Methamphetamine dependence Moderate persistent asthma Pneumomediastinum Tobacco dependence Surgical History H/O craniotomy Family History Mother Lupus Father Diabetes Hypertension Social History Smoking Status: Unknown if ever smoked alcohol intake: current substance use type: heroin current occupational status: unemployed and disabled Travel in the last 8 weeks: None household members: significant other housing: apartment number of children: 4 ROS Obtained: Yes All systems reviewed & no additional complaints except as documented Physical Exam General General appearance: alert and in
--- NOTE | 2023-04-26 17:37 | PC.NURSE ---
Glucose 119
[2023-04-26 17:44] LABS: POC Glucose,Bedside 119 (70-110)
--- NOTE | 2023-04-26 17:46 | ECG_ITS ---
APPROVED REPORT Exam: Resting ECG HR:100 bpm ECG Measurements Heart Rate 100 AXES WI 116 P 45 QRSd 82 QRS 67 QT 355 T 52 QTc 412 Conclusion SINUS TACHYCARDIA WITH SHORT WI INTERVAL POSSIBLE LEFT ATRIAL ENLARGEMENT [-0.1mV P-WAVE IN V1/V2] ABNORMAL RHYTHM ECG UNCONFIRMED REPORT Electronically signed by : Kain Aviles MD 04/27/2023 20:47:57
--- NOTE | 2023-04-26 17:50 | PC.NURSE ---
PT GONE FOR CT
[2023-04-26 18:00] VITALS: BP 95/53; PULSE 102; O2SAT 96
[2023-04-26 18:04] LABS: Alanine Aminotransferase 22 U/L (12-78); Albumin Level 3.9 g/dl (3.5-5.0); Albumin/Globulin Ratio 1.2 (1.1-1.8); Alkaline Phosphatase 57 U/L (38-126); Aspartate Amino Transferase 40 U/L (14-36); Blood Urea Nitrogen 7 mg/dl (7-17); Calcium 8.5 mg/dl (8.4-10.2); Carbon Dioxide 30 mmol/L (22.0-30.0); Chloride 103 mmol/L (98-107); Creatinine Clearance Estimated 152 mL/min (50-200); Estimated Glomerular Filt Rate 114 ml/min (>60); GFR (African American) 138 ML/MIN (>60); Globulin 3.3 g/dL (1.3-3.2); Glucose 106 mg/dl (74-100); Sodium 140 mmol/L (136-145); Total Protein,Serum 7.2 g/dl (6.3-8.2)
[2023-04-26 18:09] LABS: Bilirubin,Total < 0.1 mg/dl (0.2-1.3)
[2023-04-26 18:10] LABS: HCG Qualitative, Serum Negative (Negative)
[2023-04-26 18:22] LABS: Triiodothryronine (T3) Uptake 34 % (23.5-40.5)
[2023-04-26 18:30] VITALS: BP 101/59; PULSE 99; O2SAT 98
[2023-04-26 18:59] LABS: Microscopic, Urine URINE MICROSCOPIC (MICROSCOPIC)
--- NOTE | 2023-04-26 18:59 | PC.NURSE ---
pt resting in bed received a warm blanket, hong at bs
[2023-04-26 19:00] VITALS: BP 104/54; PULSE 99; O2SAT 98
[2023-04-26 19:30] VITALS: BP 101/51; PULSE 99; O2SAT 100
--- NOTE | 2023-04-26 19:43 | CT_ITS ---
PROCEDURE INFORMATION: Exam: CT Head With Contrast Exam date and time: 04/26/2023 8:03 PM Age: 33 years old Clinical indication: Pain; Headache not specified TECHNIQUE: Imaging protocol: Computed tomography of the head with intravenous contrast. Radiation optimization: All CT scans at this facility use at least one of these dose optimization techniques: automated exposure control; mA and/or kV adjustment per patient size (includes targeted exams where dose is matched to clinical indication); or iterative reconstruction. Contrast material: ISOVUE; Contrast volume: 100 ml; Contrast route: IV; REPORTING DATA: Count of CT and Cardiac NM exams in prior 12 months: This patient has received 2 known CTs and 0 known cardiac nuclear medicine studies in the 12 months prior to the current study. COMPARISON: CT HEAD/BRAIN WO CON 01/05/2021 7:35 PM FINDINGS: Brain: The IACs are grossly normal. No extra-axial fluid collections. No evidence of acute intracranial hemorrhage. Although lack of precontrast imaging limits sensitivity. No CT evidence of large territory acute or subacute intracranial ischemia/infarct. No intracranial mass lesions or mass effect. No midline shift or herniation. Cerebral ventricles: Lateral ventricles and 3rd ventricle are normal. Mildly expanded 4th ventricle is felt to be related to adjacent chronic encephalomalacia/operative resection bed, with no acute ventricular abnormality. Pituitary gland and sella: The sella is grossly normal. Bones/joints: No acute osseous abnormalities. Remote prior suboccipital craniotomy noted without gross complication. Paranasal sinuses: Mucosal thickening in the right maxillary sinus and to a lesser degree the left maxillary sinus and ethmoid air cells, consistent with changes of chronic sinusitis. Central hyperdense elements in the right maxillary sinus raise concern for fungal disease. Mastoid air cells: Visualized mastoid air cells are clear. Orbits: Visualized orbital contents demonstrate no acute abnormality. Vasculature: Major intracranial arterial distributions and dural venous sinuses enhance appropriately without evidence of vascular occlusion/thrombosis. Soft tissues: The scalp and visualized soft tissues demonstrate no acute abnormality. Other findings: Ochoa-white differentiation is well maintained. IMPRESSION: 1. No acute intracranial process is evident. 2. Evidence of chronic sinusitis, greatest in the right maxillary sinus, with central hyperdense elements concerning for possible fungal sinusitis.
[2023-04-26 19:50] LABS: Appearance,Urine CLEAR (Clear); Bilirubin,Urine Negative (Negative); Blood, Urine Negative (Negative); Color,Urine YELLOW (Yellow); Glucose,Urine (UA) TRACE (Negative); Ketones,Urine Negative (Negative); Leukocyte Esterase,Urine Negative (Negative); Nitrate,Urine Negative (Negative); Protein,Urine Negative (Negative)
[2023-04-26 19:55] LABS: Mucus,Urine 2+ /lpf; WBC,Urine Occasional #/hpf (0-3)
--- NOTE | 2023-04-26 19:59 | PC.NURSE ---
Pt to CT
--- NOTE | 2023-04-26 20:11 | PC.NURSE ---
PT BACK FROM CT
--- NOTE | 2023-04-26 21:22 | PC.NURSE ---
Waiting for return call from [facility] transfer team
--- NOTE | 2023-04-26 21:30 | PC.NURSE ---
Dr. Stevenson speaking with Dr. Roach at
--- NOTE | 2023-04-26 21:33 | PC.NURSE ---
Pt accepted to [facility] by Dr. Roach
--- NOTE | 2023-04-26 21:37 | PC.NURSE ---
Dr Stevenson spoke with the pt and explained that she was accepted to [facility] the pt states that she wants to go POV claiming she wants to go home shower and eat ect. It was explained to her the risks of leaving the hospital at this point. pt pulled out IV and is signing out AMA
[2023-04-26 21:53] VITALS: BP 101/51; PULSE 99; RESP 14; TEMP 36.8; O2SAT 100
== END 2023-04-26 21:52 | disposition left against medical advice (07) ==
PROVIDERS: Emergency Provider Emergency Medicine; PCP Nurse Practitioner Family
DX: R53.1 Weakness (principal); J32.9 Chronic sinusitis, unspecified; R20.2 Paresthesia of skin; J45.40 Moderate persistent asthma, uncomplicated; F32.9 Major depressive disorder, single episode, unspecified; F11.21 Opioid dependence, in remission; F15.21 Other stimulant dependence, in remission; F17.210 Nicotine dependence, cigarettes, uncomplicated
CPT/HCPCS: 70460; 71046; 80053; 81001; 82962; 84436; 84443; 84479; 84703; 87636; 93005; 96360; 99285; Q9967

== ENCOUNTER → 2023-06-22 23:09 | Outpatient (CLI) | payer MEDICAID, SELFPAY ==
[2023-06-22 18:35] LABS: Adenovirus,PCR Not Detected (NotDetected); Bordetella Pertussis Not Detected (NotDetected); Chlamydophila Pneumoniae, PCR Not Detected (NotDetected); Coronavirus 229E Not Detected (NotDetected); Coronavirus NL63 Not Detected (NotDetected); Coronavirus OC43 Not Detected (NotDetected); Coronovirus HKU1,PCR Not Detected (NotDetected); Human Metapneumovirus Not Detected (NotDetected); Influenza A, PCR Not Detected (NotDetected); Influenza AH1, 2009 Not Detected (NotDetected); Influenza AH1, PCR Not Detected (NotDetected); Influenza AH3,PCR Not Detected (NotDetected); Influenza B, PCR Not Detected (NotDetected); Mycoplasma Pneumoniae, PCR Not Detected (NotDetected); Parainfluenza 1, PCR Not Detected (NotDetected); Parainfluenza 2, PCR Not Detected (NotDetected); Parainfluenza 3, PCR Not Detected (NotDetected); Parainfluenza 4, PCR Not Detected (NotDetected); Respiratory Syncytial Virus Not Detected (NotDetected); Rhinovirus/Enterovirus Not Detected (NotDetected)
[2023-06-22 18:57] LABS: Basophils % 0.5 % (0.1-2.0); Eosinophils # 0.4 K/mm3 (0.0-0.4); Hemoglobin 12.7 g/dL (12.2-16.2); Lymphocytes # 1.7 K/mm3 (0.7-4.5); Lymphocytes % 42.5 % (10-50); Mean Corpuscular HGB Conc 30.9 g/dL (31.8-35.4); Mean Corpuscular Hemoglobin 28.3 pg (27.0-31.2); Mean Corpuscular Volume 91.5 fl (81-99); Mean Platelet Volume 10.7 fl (7.4-10.4); Monocytes # 0.3 K/mm3 (0.1-1.0); Neutrophils # 1.5 K/mm3 (1.8-7.8); Platelet Count 182 K/mm3 (142-424); Red Blood Count 4.48 M/mm3 (4.20-5.40); Red Cell Distribution Width 15.1 % (11.5-17.5); White Blood Count 3.9 K/mm3 (4.8-10.8)
[2023-06-22 18:58] LABS: Alanine Aminotransferase 19 U/L (12-78); Albumin Level 3.6 g/dl (3.5-5.0); Albumin/Globulin Ratio 1.2 (1.1-1.8); Alkaline Phosphatase 48 U/L (38-126); Anion Gap 12.8 mEq/L (5-15); Aspartate Amino Transferase 32 U/L (14-36); Blood Urea Nitrogen 7 mg/dl (7-17); Calcium 8.4 mg/dl (8.4-10.2); Carbon Dioxide 28 mmol/L (22.0-30.0); Chloride 102 mmol/L (98-107); Chol/HDL Ratio 3.4 (1-3.5); Cholesterol 133 mg/dl (140-200); Estimated Glomerular Filt Rate 95 ml/min (>60); GFR (African American) 115 ML/MIN (>60); Globulin 2.9 g/dL (1.3-3.2); Glucose 125 mg/dl (74-100); HDL Cholesterol 39 mg/dl (40-60); Potassium 3.8 mmoL/L (3.5-5.1); Sodium 139 mmol/L (136-145); Total Protein,Serum 6.5 g/dl (6.3-8.2); Triglycerides 174 mg/dl (30-150); VLDL Cholesterol 35 mg/dL (0-40)
[2023-06-22 18:59] LABS: Bilirubin,Total < 0.1 mg/dl (0.2-1.3)
[2023-06-22 19:16] LABS: 25-OH Vitamin D, Total 24.4 ng/mL (30-100)
[2023-06-22 19:26] LABS: Direct LDL Cholesterol 66.96 mg/dL (100-129)
[2023-06-22 19:29] LABS: Thyroid Stimulating Hormone 8.61 uIU/mL (0.465-4.68)
[2023-06-22 20:37] LABS: Coronavirus 19, PCR Detected (NotDetected)
== END ==
LOC: LAB.DROPOF 23:10
PROVIDERS: PCP Nurse Practitioner Family; Visit Provider Student in an Organized Health Care Education/Training Program
DX: J32.9 Chronic sinusitis, unspecified (principal); U07.1 COVID-19; B49 Unspecified mycosis; E55.9 Vitamin D deficiency, unspecified; F17.200 Nicotine dependence, unspecified, uncomplicated; Z79.899 Other long term (current) drug therapy
CPT/HCPCS: 80053; 80061; 82306; 84443; 85025; 87581; 87632; 87635; 87798

== ENCOUNTER → 2023-08-06 12:00 | Outpatient (CLI) | payer MEDICAID, SELFPAY ==
[2023-08-06 18:25] LABS: Adenovirus,PCR Not Detected (NotDetected); Coronavirus 19, PCR Not Detected (NotDetected); Coronavirus 229E Not Detected (NotDetected); Coronavirus NL63 Not Detected (NotDetected); Coronavirus OC43 Not Detected (NotDetected); Coronovirus HKU1,PCR Not Detected (NotDetected); Human Metapneumovirus Not Detected (NotDetected); Influenza A, PCR Not Detected (NotDetected); Influenza AH1, 2009 Not Detected (NotDetected); Influenza AH1, PCR Not Detected (NotDetected); Influenza AH3,PCR Not Detected (NotDetected); Influenza B, PCR Not Detected (NotDetected); Parainfluenza 1, PCR Not Detected (NotDetected); Parainfluenza 2, PCR Not Detected (NotDetected); Parainfluenza 3, PCR Not Detected (NotDetected); Parainfluenza 4, PCR Not Detected (NotDetected); Respiratory Syncytial Virus Not Detected (NotDetected); Rhinovirus/Enterovirus Not Detected (NotDetected)
== END ==
LOC: LAB.DROPOF 08-07 00:06
PROVIDERS: PCP Nurse Practitioner Family; Visit Provider Student in an Organized Health Care Education/Training Program
DX: R05.8 Other specified cough (principal); J06.9 Acute upper respiratory infection, unspecified; E03.9 Hypothyroidism, unspecified; F17.210 Nicotine dependence, cigarettes, uncomplicated; H92.02 Otalgia, left ear; J02.9 Acute pharyngitis, unspecified
CPT/HCPCS: 87632; 87635

== ENCOUNTER 2023-08-13 12:36 | Emergency (ER) | payer MEDICAID, SELFPAY ==
[2023-08-13 12:37] VITALS: BP 122/79; PULSE 87; RESP 18; TEMP 37.2; O2SAT 98; BMI 33.4
[2023-08-13 13:00] VITALS: BP 120/72; PULSE 99; O2SAT 98
[2023-08-13 13:15] LABS: Alanine Aminotransferase 25 U/L (12-78); Albumin Level 3.8 g/dl (3.5-5.0); Albumin/Globulin Ratio 1.3 (1.1-1.8); Alkaline Phosphatase 50 U/L (38-126); Anion Gap 8.8 mEq/L (5-15); Aspartate Amino Transferase 58 U/L (14-36); Bilirubin,Total 0.4 mg/dl (0.2-1.3); Blood Urea Nitrogen 6 mg/dl (7-17); Calcium 7.8 mg/dl (8.4-10.2); Carbon Dioxide 27 mmol/L (22.0-30.0); Chloride 103 mmol/L (98-107); Creatinine Clearance Estimated 160 mL/min (50-200); Estimated Glomerular Filt Rate 114 ml/min (>60); GFR (African American) 138 ML/MIN (>60); Globulin 2.9 g/dL (1.3-3.2); Glucose 101 mg/dl (74-100); Potassium 3.8 mmoL/L (3.5-5.1); Sodium 135 mmol/L (136-145); Total Protein,Serum 6.7 g/dl (6.3-8.2)
--- NOTE | 2023-08-13 13:19 | HMH.EDGENADL ---
Discharge Plan Disposition Patient Disposition: Home, Self-Care Chief Complaint: Extremity Problem,Nontraumatic Prescriptions Prescriptions: No Action fluoxetine [Prozac] 40 mg capsule 40 mg PO DAILY Qty: 30 2RF fluticasone propion-salmeterol 500-50 mcg/dose blister with device 1 inh inhalation BID 30 Days Qty: 1 0RF albuterol sulfate [ProAir HFA] 90 mcg/actuation HFA aerosol inhaler See Rx Instructions .ROUTE .COMPLEX Qty: 8.5 3RF Dose Instruction: INHALE 2 PUFFS BY MOUTH EVERY 6 HOURS NEEDED FOR WHEEZING Rx Instructions: INHALE 2 PUFFS BY MOUTH EVERY 6 HOURS NEEDED FOR WHEEZING cholecalciferol (vitamin D3) 25 mcg (1,000 unit) capsule 25 mcg PO DAILY Qty: 60 2RF dextromethorphan-guaifenesin 60-1,200 mg tablet extended release 12 hr 1 tab PO Q12H Qty: 14 0RF quetiapine [Seroquel] 100 mg tablet 100 mg PO QHS Qty: 30 1RF levothyroxine 37.5 mcg capsule 37.5 mcg PO DAILY Qty: 30 2RF fluticasone propionate [Allergy Relief (fluticasone)] 50 mcg/actuation spray,suspension 1 spray intranasal DAILY Qty: 16 2RF Rx Instructions: administer into each nostril Referrals Follow up/Referrals: Tian Hoover APRN [Primary Care Provider] - See instructions Activity Restrictions/Add. Instructions Additional Instructions/Restrictions: Call your family doctor to establish care for this visit to the emergency department and schedule follow-up within 48 hours to ensure improvement. If you have any worsening of your condition or any other concerning signs or symptoms, return to the emergency department or your primary care doctor for further evaluation. Clinical Impressions Clinical Impression: Dependent edema Discharge ED Provider: Jewel Sadler General Adult HPI General Chief complaint: Extremity Problem,Nontraumatic Stated complaint: swelling in legs and abd Time Seen by Provider: 08/13/23 12:42 Mode of Arrival: Ambulatory Source of Information: Patient Limitations: No Limitations Description of Symptoms (Recalled from ER Triage Doc. by RN): Presents to ED with c/o bilateral leg swelling and abd swelling that started yesterday. Patient further report she sometimes can't pee . Denies meds [employer]. Denies urinary symptoms. History of Present Illness HPI narrative: 33-year-old female presenting with multiple concerns. Patient has a history of IV drug abuse and is concerned about this. She states sometimes her left arm swells, sometimes her right arm swells, and sometimes her left or right lower extremity swells. She is concerned that her bilateral lower extremities are swollen, left greater than right today and it has been going on for couple of days. She stands on her feet all day and says that this makes it worse. She states that she is having difficulty peeing sometimes as well, but denies any urinary symptoms. States she think she may be dehydrated. Patient has no history of DVT or PE, no history of recent long distance travel, or surgery, no recent trauma, oral contraceptive use, or any other concerns for DVT or PE. Related Data Previous Rx's Medication Instructions Recorded albuterol sulfate 90 mcg/actuation See Rx Instructions .Route 12/03/22 aerosol inhaler (ProAir HFA) .COMPLEX #8.5 grams fluoxetine 40 mg capsule (Prozac) 40 mg PO DAILY #30 caps 04/09/23 fluticasone 500 mcg-salmeterol 50 1 inh inhalation BID 30 days #1 ea 04/09/23 mcg/dose blistr powdr for inhalation cholecalciferol (vitamin D3) 25 25 mcg PO DAILY #60 caps 06/24/23 mcg (1,000 unit) capsule dextromethorphan-guaifenesin ER 60 1 tab PO Q12H #14 tabs 06/25/23 mg-1,200 mg tab,extend release,12hr levothyroxine 37.5 mcg capsule 37.5 mcg PO DAILY #30 caps 07/06/23 quetiapine 100 mg tablet (Seroquel) 100 mg PO QHS #30 tabs 07/06/23 fluticasone propionate 50 1 spray intranasal DAILY #16 grams 08/09/23 mcg/actuation nasal spray,suspension (Allergy Relief (fluticasone)) Allergies Aller
[2023-08-13 13:23] LABS: NT Pro Brain Natriuretic Pep. 208 pg/mL (0-125)
[2023-08-13 13:30] VITALS: BP 124/77; PULSE 98; RESP 20; O2SAT 96
[2023-08-13 13:52] VITALS: BP 124/77; PULSE 90; RESP 18; TEMP 36.7; O2SAT 98
== END 2023-08-13 13:52 | disposition home or self-care (01) ==
PROVIDERS: Emergency Provider Emergency Medicine; PCP Nurse Practitioner Family
DX: R60.0 Localized edema (principal); F41.1 Generalized anxiety disorder; J45.909 Unspecified asthma, uncomplicated; F19.21 Other psychoactive substance dependence, in remission; Z87.891 Personal history of nicotine dependence
CPT/HCPCS: 80053; 83880; 99283

== ENCOUNTER 2023-09-05 14:49 | Emergency (ER) | payer MEDICAID, SELFPAY ==
[2023-09-05 15:15] VITALS: BP 111/35; PULSE 74; RESP 20; TEMP 36.9; O2SAT 97; BMI 32.1
--- NOTE | 2023-09-05 15:15 | EXP.UTC ---
Discharge Plan Disposition Patient Disposition: Home, Self-Care Condition: Good Prescriptions Prescriptions: New cefdinir 300 mg capsule 300 mg PO BID Qty: 20 0RF albuterol sulfate [Ventolin HFA] 90 mcg/actuation HFA aerosol inhaler 2 puff inhalation Q6H PRN (Reason: shortness of breath or wheezing) Qty: 6.7 0RF methylprednisolone 4 mg Tablets,Dose Pack 4 mg PO DIRECTED Qty: 21 0RF No Action fluoxetine [Prozac] 40 mg capsule 40 mg PO DAILY Qty: 30 2RF fluticasone propion-salmeterol 500-50 mcg/dose blister with device 1 inh inhalation BID 30 Days Qty: 1 0RF cholecalciferol (vitamin D3) 25 mcg (1,000 unit) capsule 25 mcg PO DAILY Qty: 60 2RF dextromethorphan-guaifenesin 60-1,200 mg tablet extended release 12 hr 1 tab PO Q12H Qty: 14 0RF levothyroxine 37.5 mcg capsule 37.5 mcg PO DAILY Qty: 30 2RF fluticasone propionate [Allergy Relief (fluticasone)] 50 mcg/actuation spray,suspension 1 spray intranasal DAILY Qty: 16 2RF Rx Instructions: administer into each nostril quetiapine [Seroquel] 100 mg tablet 100 mg PO QHS Qty: 30 1RF albuterol sulfate [Ventolin HFA] 90 mcg/actuation HFA aerosol inhaler See Rx Instructions .ROUTE .COMPLEX Qty: 18 0RF Dose Instruction: INHALE 2 PUFFS BY MOUTH EVERY 6 HOURS NEEDED FOR SHORTNESS OF BREATH OR WHEEZING Rx Instructions: INHALE 2 PUFFS BY MOUTH EVERY 6 HOURS NEEDED FOR SHORTNESS OF BREATH OR WHEEZING Referrals Follow up/Referrals: Tian Lunsford MD [Primary Care Provider] - See instructions Activity Restrictions/Add. Instructions Additional Instructions/Restrictions: Drink plenty of fluids. Take tylenol or ibuprofen for pain or fever. Take the medications as directed. Follow up with your regular doctor. GO TO THE ER FOR ANY WORSENING SYMPTOMS Clinical Impressions Clinical Impression: Otitis media, Sinusitis Instructions Patient Instructions: Sinusitis, DI for Sinusitis Discharge ED Provider: Josef Pickett [facility] General Stated complaint: congestion, right ear pain Time Seen by Provider: 09/05/23 15:15 History of Present Illness Provider Complaint: She states that for the past 5 days she has had ear pain and chest congestion. She denies any fever/chills/body aches. She denies shortness of breath. Related Data Previous Rx's Medication Instructions Recorded fluoxetine 40 mg capsule (Prozac) 40 mg PO DAILY #30 caps 04/09/23 fluticasone 500 mcg-salmeterol 50 1 inh inhalation BID 30 days #1 ea 04/09/23 mcg/dose blistr powdr for inhalation cholecalciferol (vitamin D3) 25 25 mcg PO DAILY #60 caps 06/24/23 mcg (1,000 unit) capsule dextromethorphan-guaifenesin ER 60 1 tab PO Q12H #14 tabs 06/25/23 mg-1,200 mg tab,extend release,12hr levothyroxine 37.5 mcg capsule 37.5 mcg PO DAILY #30 caps 07/06/23 fluticasone propionate 50 1 spray intranasal DAILY #16 grams 08/09/23 mcg/actuation nasal spray,suspension (Allergy Relief (fluticasone)) quetiapine 100 mg tablet (Seroquel) 100 mg PO QHS #30 tabs 08/20/23 albuterol sulfate 90 mcg/actuation See Rx Instructions .Route 08/30/23 aerosol inhaler (Ventolin HFA) .COMPLEX #18 grams albuterol sulfate 90 mcg/actuation 2 puff inhalation Q6H PRN 09/05/23 aerosol inhaler (Ventolin HFA) shortness of breath or wheezing #6.7 grams cefdinir 300 mg capsule 300 mg PO BID #20 caps 09/05/23 methylprednisolone 4 mg tablets in 4 mg PO DIRECTED #21 tabs 09/05/23 a dose pack Allergies Allergy/AdvReac Type Severity Reaction Status Date / Time amoxicillin Allergy Severe Hives Verified 08/06/23 14:52 erythromycin base Allergy Severe Hives Verified 08/06/23 14:52 Penicillins Allergy Severe Hives Verified 08/06/23 14:52 [facility] Disclaimer: The information contained in this section may have been updated after the patient was seen, as this information can be updated by other users. Medical History (Reviewed 08/06/23 @ 14:53
[2023-09-05 16:15] VITALS: BP 111/35; PULSE 74; RESP 20; TEMP 36.9; O2SAT 97
== END 2023-09-05 16:18 | disposition home or self-care (01) ==
PROVIDERS: Emergency Provider Nurse Practitioner Family; PCP Student in an Organized Health Care Education/Training Program
DX: H66.93 Otitis media, unspecified, bilateral (principal); J01.90 Acute sinusitis, unspecified; R50.9 Fever, unspecified; R09.81 Nasal congestion; R09.89 Other specified symptoms and signs involving the circulatory and respiratory systems; R05.9 Cough, unspecified; F11.21 Opioid dependence, in remission; F15.21 Other stimulant dependence, in remission; Z87.891 Personal history of nicotine dependence
CPT/HCPCS: 99212; 99214; G0463

== ENCOUNTER → 2023-09-14 23:14 | Outpatient (CLI) | payer MEDICAID, SELFPAY ==
[2023-09-14 17:45] LABS: Coronavirus 19, PCR Not Detected (NotDetected); Influenza A, PCR Not Detected (NotDetected); Influenza B, PCR Not Detected (NotDetected)
[2023-09-14 18:19] LABS: Basophils % 0.5 % (0.1-2.0); Eosinophils # 0.9 K/mm3 (0.0-0.4); Eosinophils % 11.4 % (0.1-12.0); Hematocrit 37.4 % (37.0-47.0); Hemoglobin 12.6 g/dL (12.2-16.2); Lymphocytes # 2.6 K/mm3 (0.7-4.5); Lymphocytes % 31.8 % (10-50); Mean Corpuscular HGB Conc 33.6 g/dL (31.8-35.4); Mean Corpuscular Hemoglobin 31.1 pg (27.0-31.2); Mean Corpuscular Volume 92.7 fl (81-99); Mean Platelet Volume 10.1 fl (7.4-10.4); Monocytes # 0.5 K/mm3 (0.1-1.0); Monocytes % 5.6 % (1.7-9.3); Neutrophils # 4.1 K/mm3 (1.8-7.8); Neutrophils % 50.7 % (37.0-80.0); Platelet Count 196 K/mm3 (142-424); Red Blood Count 4.04 M/mm3 (4.20-5.40); White Blood Count 8.1 K/mm3 (4.8-10.8)
[2023-09-14 19:00] LABS: Alanine Aminotransferase 16 U/L (12-78); Albumin Level 3.6 g/dl (3.5-5.0); Albumin/Globulin Ratio 1.3 (1.1-1.8); Alkaline Phosphatase 51 U/L (38-126); Anion Gap 8.7 mEq/L (5-15); Aspartate Amino Transferase 27 U/L (14-36); Blood Urea Nitrogen 9 mg/dl (7-17); Calcium 7.7 mg/dl (8.4-10.2); Carbon Dioxide 22 mmol/L (22.0-30.0); Chloride 108 mmol/L (98-107); Chol/HDL Ratio 3.4 (1-3.5); Cholesterol 136 mg/dl (140-200); Estimated Glomerular Filt Rate 95 ml/min (>60); GFR (African American) 115 ML/MIN (>60); Globulin 2.7 g/dL (1.3-3.2); Glucose 110 mg/dl (74-100); HDL Cholesterol 40 mg/dl (40-60); Potassium 3.7 mmoL/L (3.5-5.1); Sodium 135 mmol/L (136-145); Total Protein,Serum 6.3 g/dl (6.3-8.2); Triglycerides 176 mg/dl (30-150); VLDL Cholesterol 35 mg/dL (0-40)
[2023-09-14 19:11] LABS: Direct LDL Cholesterol 67.23 mg/dL (100-129)
[2023-09-14 19:15] LABS: Bilirubin,Total 0.1 mg/dl (0.2-1.3); Hemoglobin A1C 4.9 % (4.0-6.0)
[2023-09-14 19:17] LABS: 25-OH Vitamin D, Total 21.8 ng/mL (30-100)
[2023-09-14 19:18] LABS: Free T4 (Free Thyroxine) 1.07 ng/dl (0.78-2.19)
[2023-09-14 19:32] LABS: Thyroid Stimulating Hormone 5.12 uIU/mL (0.465-4.68)
== END ==
LOC: LAB.DROPOF 23:14
PROVIDERS: PCP Student in an Organized Health Care Education/Training Program; Visit Provider Student in an Organized Health Care Education/Training Program
DX: R05.9 Cough, unspecified (principal); R73.09 Other abnormal glucose; R53.83 Other fatigue; E55.9 Vitamin D deficiency, unspecified; B19.20 Unspecified viral hepatitis C without hepatic coma; D64.9 Anemia, unspecified; F17.200 Nicotine dependence, unspecified, uncomplicated
CPT/HCPCS: 80053; 80061; 82306; 83036; 84439; 84443; 85025; 87636

== ENCOUNTER 2023-10-24 10:59 | Emergency (ER) | payer MEDICAID, SELFPAY ==
[2023-10-24 11:10] VITALS: BP 121/71; PULSE 91; RESP 18; TEMP 36.6; O2SAT 98; BMI 30.9
--- NOTE | 2023-10-24 11:21 | ED_ITS ---
Discharge Plan Disposition Patient Disposition: Home, Self-Care Condition: Good Prescriptions Prescriptions: No Action fluticasone propion-salmeterol 500-50 mcg/dose blister with device 1 inh inhalation BID 30 Days Qty: 1 0RF omeprazole 20 mg capsule,delayed release(DR/EC) 20 mg PO DAILY Qty: 30 2RF doxycycline hyclate 100 mg tablet 100 mg PO BID 10 Days Qty: 20 0RF dextromethorphan-guaifenesin 60-1,200 mg tablet extended release 12 hr 1 tab PO Q12H Qty: 14 0RF fluticasone propionate [Allergy Relief (fluticasone)] 50 mcg/actuation spray,suspension 1 spray intranasal DAILY Qty: 16 2RF Rx Instructions: administer into each nostril levothyroxine 44 mcg capsule 44 mcg PO DAILY Qty: 60 2RF cholecalciferol (vitamin D3) 1,250 mcg (50,000 unit) capsule 1,250 mcg PO WEEKLY Qty: 12 0RF fluoxetine 40 mg capsule See Rx Instructions .ROUTE .COMPLEX Qty: 30 2RF Dose Instruction: TAKE ONE CAPSULE BY MOUTH ONCE A DAY Rx Instructions: TAKE ONE CAPSULE BY MOUTH ONCE A DAY quetiapine [Seroquel] 100 mg tablet 100 mg PO QHS Qty: 30 1RF albuterol sulfate 90 mcg/actuation HFA aerosol inhaler See Rx Instructions .ROUTE .COMPLEX Qty: 8.5 0RF Dose Instruction: INHALE 2 PUFFS BY MOUTH EVERY6 HOURS NEEDED FOR SHORTNESS OF BREATH OR WHEEZING Rx Instructions: INHALE 2 PUFFS BY MOUTH EVERY6 HOURS NEEDED FOR SHORTNESS OF BREATH OR WHEEZING albuterol sulfate [Ventolin HFA] 90 mcg/actuation HFA aerosol inhaler 2 puff inhalation Q6H PRN (Reason: shortness of breath or wheezing) Qty: 6.7 0RF Referrals Follow up/Referrals: Tian Hoover APRN [Primary Care Provider] - See instructions Activity Restrictions/Add. Instructions Additional Instructions/Restrictions: You were evaluated in the emergency department today. At this time, your labs are reassuring. Please follow-up closely with your primary care provider. Refrain from drug use. Return to the emergency department for new or worsening symptoms Clinical Impressions Clinical Impression: Abdominal bloating Instructions Patient Instructions: DI for Acute Abdominal Pain Discharge ED Provider: Debbie Serrano [facility] [place] H[place] General Chief complaint: Abdominal Pain Stated complaint: sob, congestion Mode of Arrival: Ambulatory Source of Information: Patient Limitations: No Limitations Time Seen by Provider: 10/24/23 11:21 Description of Symptoms (Recalled from Triage Doc. by RN): PATIENT C/O SOA, PRODUCTIVE COUGH WITH GREEN/YELLOW SPUTUM, AND SWELLING ALL OVER HEENT Symptoms (Recalled from RN notes): No Resp Symptoms (Recalled from RN notes): Yes Skin Symptoms (Recalled from RN notes): No MS Symptoms (Recalled from RN notes): No Functional Status (Recalled from RN notes): WNL History of Present Illness Provider Complaint: Patient states that she has been having swelling in her abdomen and lower extremities States that last night her stomach was very swollen but better this morning but still having pain/discomfort in left upper abdomen that started last night States that she has kidney problems and she has not been urinating well State that also she has been feeling SOA and coughing up some mucous Related Data Previous Rx's Medication Instructions Recorded fluticasone 500 mcg-salmeterol 50 1 inh inhalation BID 30 days #1 ea 04/09/23 mcg/dose blistr powdr for inhalation dextromethorphan-guaifenesin ER 60 1 tab PO Q12H #14 tabs 06/25/23 mg-1,200 mg tab,extend release,12hr fluticasone propionate 50 1 spray intranasal DAILY #16 grams 08/09/23 mcg/actuation nasal spray,suspension (Allergy Relief (fluticasone)) albuterol sulfate 90 mcg/actuation 2 puff inhalation Q6H PRN 09/05/23 aerosol inhaler (Ventolin HFA) shortness of breath or wheezing #6.7 grams doxycycline hyclate 100 mg tablet 100 mg PO BID 10 days #20 tabs 09/14/23 omeprazole 20 mg capsule,delayed 20 mg PO DAILY #30 caps 09/14/23 release cholecalciferol (vitamin D3) 1,250 1,250 mcg PO WEEKLY #12 caps 09/15/23 mcg (50,000 unit) capsule levothyroxine 44 mcg capsule 44 mcg PO DAILY #60 caps 09/15/23 fluoxetine 40 mg capsule See Rx Instructions .Route 10/11/23 .COMPLEX #30 caps quetiapine 100 mg tablet (Seroquel) 100 mg PO QHS #30 tabs 10/13/23 albuterol sulfate 90 mcg/actuation See Rx Instructions .Route 10/19/23 aerosol inhaler .COMPLEX #8.5 grams Allergies Allergy/AdvReac Type Severity Reaction Status Date / Time amoxicillin Allergy Severe Hives Verified 10/24/23 12:19 erythromycin base Allergy Severe Hives Verified 10/24/23 12:19 Penicillins Allergy Severe Hives Verified 10/24/23 12:19 Worker's Comp Is this a Worker's Comp case?: No [facility] Disclaimer: The information contained in this section may have been updated after the patient was seen, as this information can be updated by other users. Medical History Acquired pneumomediastinum Active intravenous drug use Asthma Cerebral aneurysm Hepatitis C infection Heroin addiction Insomnia Major depressive disorder Methamphetamine dependence Moderate persistent asthma Pneumomediastinum Tobacco dependence Surgical History H/O craniotomy Family History Mother Lupus Father Diabetes Hypertension Social History Smoking Status: Current every day smoker tobacco type: cigarettes packs per day: 1 alcohol intake: current substance use type: heroin current occupational status: unemployed and disabled Travel in the last 8 weeks: None household members: significant other housing: apartment number of children: 4 ROS Obtained: Yes All systems reviewed & no additional complaints except as documented and Yes Systems reviewed as appropriate & no additional complaints except as documented Constitutional Constitutional: Reports system reviewed and no additional complaints, except as documented and Reports as per HPI ENT Ears, Nose, Mouth, and Throat: Reports system reviewed and no additional complaints, except as documented and Reports as per HPI Cardiovascular Cardiovascular: Reports system reviewed and no additional complaints, except as documented and Reports as per HPI Respiratory Respiratory: Reports system reviewed and no additional complaints, except as documented, Reports as per HPI, Reports shortness of breath, Reports chest congestion and Reports cough Gastrointestinal Gastrointestingal: Reports system reviewed and no additional complaints, except as documented, as per HPI, abdominal pain (reports pain/tenderness in left to mid upper abdomen) and other (reports abdomen feels swollen ); Denies diarrhea or vomiting Genitourinary Female Genitourinary: Reports system reviewed and no additional complaints, except as documented, Reports as per HPI and Reports other (reports difficulty urinating but denies burning with urination) Musculoskeletal Musculoskeletal: Reports system reviewed and no additional complaints, except as documented, Reports as per HPI and Reports other (swelling in lower extremities on and off for several months) Physical Exam General General appearance: alert and in no apparent distress Respiratory Respiratory exam: Present normal lung sounds bilaterally; Absent respiratory distress Cardiovascular Cardiovascular exam: Present regular rate, normal rhythm and normal heart sounds Abdominal Exam Abdominal exam: Present tenderness (reports tenderness with palpation in mid and left upper epigastric area ) Extremities Exam Extremities exam: Present edema Neurological Exam Neurological exam: Present alert, oriented X3 and normal gait Medical Decision Making Jung Inquiry Pt receiving controlled substance: No Jung was queried for this patient: No Vital Signs: 10/24/23 11:10 Temperature 97.8 F Temperature Source Oral Pulse Rate [Left Brachial] 91 H Respiratory Rate 18 Blood Pressure [Left Arm] 121/71 Blood Pressure Mean [Left Arm] 87 Blood Pressure Source [Left Arm] Automatic Cuff Blood Pressure Position [Left Arm] Sitting 02 Sat by Pulse Oximetry 98 Oxygen Delivery Method Room Air Lab Data 10/24/23 12:05 10/24/23 12:05 Medical Decision Narrative: Patient reports swelling in abdomen with pain in her mid to left upper abdominal area, difficulty urinating and feeling SOA with productive cough at times States that pain in abdomen is new and started last night discussed with patient and due to hx and complaints will transfer to the ED for further work up and evaluation and patient agreed Called ED and patient was moved to the ED for further work up and evaluation
[2023-10-24 11:44] VITALS: BP 105/59; PULSE 88; RESP 16; TEMP 36.9; O2SAT 96; BMI 33.4
[2023-10-24 12:02] LABS: Microscopic, Urine URINE MICROSCOPIC (MICROSCOPIC)
[2023-10-24 12:02] LABS: Coronavirus 19, PCR Not Detected (NotDetected); Influenza A, PCR Not Detected (NotDetected); Influenza B, PCR Not Detected (NotDetected)
[2023-10-24 12:03] LABS: Appearance,Urine CLEAR (Clear); Bilirubin,Urine Negative (Negative); Blood, Urine Negative (Negative); Color,Urine YELLOW (Yellow); Glucose,Urine (UA) Negative (Negative); Ketones,Urine Negative (Negative); Leukocyte Esterase,Urine 1+ (Negative); Nitrate,Urine Negative (Negative); Protein,Urine Negative (Negative); Urobilinogen,Urine 0.2 EU/dl (0.2)
--- NOTE | 2023-10-24 12:20 | HMH.EDGENADL ---
Discharge Plan Disposition Patient Disposition: Home, Self-Care Condition: Good Prescriptions Prescriptions: No Action fluticasone propion-salmeterol 500-50 mcg/dose blister with device 1 inh inhalation BID 30 Days Qty: 1 0RF omeprazole 20 mg capsule,delayed release(DR/EC) 20 mg PO DAILY Qty: 30 2RF doxycycline hyclate 100 mg tablet 100 mg PO BID 10 Days Qty: 20 0RF dextromethorphan-guaifenesin 60-1,200 mg tablet extended release 12 hr 1 tab PO Q12H Qty: 14 0RF fluticasone propionate [Allergy Relief (fluticasone)] 50 mcg/actuation spray,suspension 1 spray intranasal DAILY Qty: 16 2RF Rx Instructions: administer into each nostril levothyroxine 44 mcg capsule 44 mcg PO DAILY Qty: 60 2RF cholecalciferol (vitamin D3) 1,250 mcg (50,000 unit) capsule 1,250 mcg PO WEEKLY Qty: 12 0RF fluoxetine 40 mg capsule See Rx Instructions .ROUTE .COMPLEX Qty: 30 2RF Dose Instruction: TAKE ONE CAPSULE BY MOUTH ONCE A DAY Rx Instructions: TAKE ONE CAPSULE BY MOUTH ONCE A DAY quetiapine [Seroquel] 100 mg tablet 100 mg PO QHS Qty: 30 1RF albuterol sulfate 90 mcg/actuation HFA aerosol inhaler See Rx Instructions .ROUTE .COMPLEX Qty: 8.5 0RF Dose Instruction: INHALE 2 PUFFS BY MOUTH EVERY6 HOURS NEEDED FOR SHORTNESS OF BREATH OR WHEEZING Rx Instructions: INHALE 2 PUFFS BY MOUTH EVERY6 HOURS NEEDED FOR SHORTNESS OF BREATH OR WHEEZING albuterol sulfate [Ventolin HFA] 90 mcg/actuation HFA aerosol inhaler 2 puff inhalation Q6H PRN (Reason: shortness of breath or wheezing) Qty: 6.7 0RF Referrals Follow up/Referrals: Tian Hoover APRN [Primary Care Provider] - See instructions Activity Restrictions/Add. Instructions Additional Instructions/Restrictions: You were evaluated in the emergency department today. At this time, your labs are reassuring. Please follow-up closely with your primary care provider. Refrain from drug use. Return to the emergency department for new or worsening symptoms Clinical Impressions Clinical Impression: Abdominal bloating Instructions Patient Instructions: DI for Acute Abdominal Pain Discharge ED Provider: Debbie Serrano General Adult HPI General Chief complaint: Abdominal Pain Stated complaint: sob, congestion Time Seen by Provider: 10/24/23 11:21 Mode of Arrival: Ambulatory Source of Information: Patient Limitations: No Limitations Description of Symptoms (Recalled from ER Triage Doc. by RN): pt c/o abd bloating, cramping, eye drainage and minimal BLE edema ongoing since yesterday. pt also c/o a productive cough with a dull/green/thick sputum. Pt states she is suppose to see ENT and has black mold in her house. pt has a hx of CKD and hep C. History of Present Illness HPI narrative: This patient is a 33-year-old female with a history of heroin use by snorting, hepatitis C, tobacco dependence, and hypothyroidism presenting to the emergency department for evaluation with concern for abdominal bloating. Patient states that she has had leg swelling for a long time. She also states that she has had a productive cough for a long time because she has mold in her house. She has been to see ENT for this. She notes that has been going on for months, but last night she noted that her abdomen was slightly bloated and distended. She notes that she has not had fevers, chest pain, shortness of breath, cough, congestion, nausea, vomiting, changes bowel movements, or other concerns. She was just concerned because she felt that her leg swelling had now progressed to her abdomen. She states that her abdominal bloating has actually improved since yesterday. Patient was sent over from [facility] for higher level of care given multiple complaints. Related Data Previous Rx's Medication Instructions Recorded fluticasone 500 mcg-salmeterol 50 1 inh inhalation BID 30 days #1 ea 04/09/23 mcg/dose blistr powdr for inhalation dextromethorphan-guaifenesin ER 60 1 tab PO Q12H #14 tabs 06/25/23 mg-1,200 mg tab,extend release,12hr fluticasone propionate 50 1 spray intranasal DAILY #16 grams 08/09/23 mcg/actuation nasal spray,suspension (Allergy Relief (fluticasone)) albuterol sulfate 90 mcg/actuation 2 puff inhalation Q6H PRN 09/05/23 aerosol inhaler (Ventolin HFA) shortness of breath or wheezing #6.7 grams doxycycline hyclate 100 mg tablet 100 mg PO BID 10 days #20 tabs 09/14/23 omeprazole 20 mg capsule,delayed 20 mg PO DAILY #30 caps 09/14/23 release cholecalciferol (vitamin D3) 1,250 1,250 mcg PO WEEKLY #12 caps 09/15/23 mcg (50,000 unit) capsule levothyroxine 44 mcg capsule 44 mcg PO DAILY #60 caps 09/15/23 fluoxetine 40 mg capsule See Rx Instructions .Route 10/11/23 .COMPLEX #30 caps quetiapine 100 mg tablet (Seroquel) 100 mg PO QHS #30 tabs 10/13/23 albuterol sulfate 90 mcg/actuation See Rx Instructions .Route 10/19/23 aerosol inhaler .COMPLEX #8.5 grams Allergies Allergy/AdvReac Type Severity Reaction Status Date / Time amoxicillin Allergy Severe Hives Verified 10/24/23 12:19 erythromycin base Allergy Severe Hives Verified 10/24/23 12:19 Penicillins Allergy Severe Hives Verified 10/24/23 12:19 [facility] Disclaimer: The information contained in this section may have been updated after the patient was seen, as this information can be updated by other users. Medical History Acquired pneumomediastinum Active intravenous drug use Asthma Cerebral aneurysm Hepatitis C infection Heroin addiction Insomnia Major depressive disorder Methamphetamine dependence Moderate persistent asthma Pneumomediastinum Tobacco dependence Surgical History H/O craniotomy Family History Mother Lupus Father Diabetes Hypertension Social History Smoking Status: Current every day smoker tobacco type: cigarettes packs per day: 1 alcohol intake: current substance use type: heroin current occupational status: unemployed and disabled Travel in the last 8 weeks: None household members: significant other housing: apartment number of children: 4 ROS Obtained: Yes All systems reviewed & no additional complaints except as documented Physical Exam General General appearance: alert and in no apparent distress Head Head exam: atraumatic and normocephalic Eye Eye exam: Present normal appearance, PERRL and EOMI ENT ENT exam: Present normal exam, normal oropharynx, mucous membranes moist and normal external ear exam Neck Neck exam: Present normal inspection, full ROM and trachea midline; Absent tenderness Chest Chest inspection: Present normal inspection and symmetric chest wall rise; Absent tenderness Respiratory Respiratory exam: Present normal lung sounds bilaterally; Absent respiratory distress, wheezes, stridor or accessory muscle use Cardiovascular Cardiovascular exam: Present regular rate and normal rhythm Abdominal Exam Abdominal exam: Present soft; Absent distention, tenderness or guarding Extremities Exam Extremities exam: Present full ROM, normal capillary refill and edema (Very mild bilateral lower extremity edema); Absent tenderness Back Exam Back exam: Present normal inspection and full ROM; Absent tenderness Neurological Exam Neurological exam: Present alert, oriented X3, CN II-XII intact and normal gait; Absent motor sensory deficit Psychiatric Psychiatric exam: Present normal affect and normal mood Skin Skin exam: Present warm and dry Medical Decision Making Medical Records Medical records reviewed: Yes I reviewed the patient's medical records. Jung Inquiry Pt receiving controlled substance: No Vital Signs: 10/24/23 11:10 10/24/23 11:44 10/24/23 12:41 Temperature 97.8 F 98.5 F 98.2 F Temperature Source Oral Oral Pulse Rate 84 Pulse Rate [Left Brachial] 91 H 88 Respiratory Rate 18 16 18 Blood Pressure 109/63 L Blood Pressure [Left Arm] 121/71 105/59 L Blood Pressure Mean [Left Arm] 87 74 Blood Pressure Source [Left Arm] Automatic Cuff Blood Pressure Position [Left Arm] Sitting 02 Sat by Pulse Oximetry 98 96 Oxygen Delivery Method Room Air Lab Data Lab results reviewed: Yes I reviewed the patient's lab results. Lab Results 10/24/23 11:36: Urine Color Yellow, Urine Appearance Clear, Urine pH 7.0, Ur Specific [place] 1.010, Urine Protein Negative, Urine Glucose (UA) Negative, Urine Ketones Negative, Urine Blood Negative, Urine Nitrate Negative, Urine Bilirubin Negative, Urine Urobilinogen 0.2, Ur Leukocyte Esterase 1+ A, Urine RBC None, Urine WBC 3-5, Ur Squamous Epith Cells Occasional, Urine Bacteria Trace 10/24/23 12:05: WBC 7.7, RBC 4.12 L, Hgb 12.1 L, Hct 37.3, MCV 90.7, MCH 29.3, MCHC 32.3, RDW 14.6, Plt Count 211, MPV 9.1, Neut % (Auto) 59.1, Lymph % (Auto) 26.3, [place] % (Auto) 8.1, Eos % (Auto) 5.8, Baso % (Auto) 0.7, Neut # (Auto) 4.5, Lymph # (Auto) 2.0, [place] # (Auto) 0.6, Eos # (Auto) 0.4, Baso # (Auto) 0.1, Sodium 136, Potassium 3.9, Chloride 102, Carbon Dioxide 32 H, Anion Gap 5.9, BUN 6 L, Creatinine 0.60, Estimated Creat Clear 166, Estimated GFR 114, Est GFR ( Amer) 138, Glucose 110 H, Calcium 8.6, Total Bilirubin 0.4, AST 26, ALT 20, Alkaline Phosphatase 43, NT-Pro-B Natriuret Pep 776 H, Total Protein 6.4, Albumin 3.5, Globulin 2.9, Albumin/Globulin Ratio 1.2, Lipase 13 L, Serum HCG, Qual Negative 10/24/23 12:05 10/24/23 12:05 Orders (Tests/Meds): ORDERS Category Date Time Status Brain Natriuretic Peptide Stat Lab 10/24/23 12:05 Results Complete Blood Count Auto Diff Stat Lab 10/24/23 12:05 Completed Comprehensive Metabolic Panel Stat Lab 10/24/23 12:05 Results HCG Qualitative, Serum Stat Lab 10/24/23 12:05 Completed Lipase Stat Lab 10/24/23 12:05 Results Rapid PCR Covid and Flu A/B Stat Lab 10/24/23 11:56 Received T4 (Thyroxine) Stat Lab 10/24/23 12:05 Results Thyroid Stimulating Hormone Stat Lab 10/24/23 12:05 Results Urinalysis and Microscopic Stat Lab 10/24/23 11:36 Completed Urine Culture Stat Micro 10/24/23 11:36 Received Medical Decision Narrative: In summary, this patient is a 33-year-old female presenting to the Emergency Department for evaluation of abdominal bloating since yesterday as well as chronic cough and bilateral leg swelling. Differential diagnoses considered include but are not limited to bloating, , gastroenteritis, constipation, renal insufficiency, cirrhosis. Ruling out the most morbid conditions drove assessment. It should be noted patient's history includes hepatitis C which may or may not be at goal therapy. This complicates all aspects of care by increasing patient's risk for morbidity. Workup included on exam, the patient is well-appearing with normal vitals and benign abdominal exam. Doubt true surgical intra-abdominal pathology or obstructive process at this time. Given multiple complaints, lab evaluation clued CBC, CMP, urinalysis, BNP, TSH, T4, as well as chest x-ray were ordered. Labs do not demonstrate any acute concerning abnormalities aside from mildly elevated BNP. test is negative, and kidney function is within normal limits. Urine has positive leukocyte esterase, but patient denies any urinary symptoms. On reassessment, the patient is resting comfortably. She states that she wants to leave because she is hungry. She did not wish to be evaluated in the emergency department initially. Patient does not wish to stay for x-ray or further evaluation. At this time, feel that she is appropriate for discharge with close outpatient follow-up. She was given counseling on drug cessation and she was discharged in stable condition after all questions were answered. Critical Care Critical Care Time Critical Care Time: No
[2023-10-24 12:21] LABS: Bacteria,Urine Trace /lpf; Squamous Epithelial Cell,Urine Occasional #/hpf (0-5)
[2023-10-24 12:22] LABS: Basophils # 0.1 K/mm3 (0-0.2); Basophils % 0.7 % (0.1-2.0); Eosinophils # 0.4 K/mm3 (0.0-0.4); Eosinophils % 5.8 % (0.1-12.0); Hematocrit 37.3 % (37.0-47.0); Hemoglobin 12.1 g/dL (12.2-16.2); Lymphocytes % 26.3 % (10-50); Mean Corpuscular HGB Conc 32.3 g/dL (31.8-35.4); Mean Corpuscular Hemoglobin 29.3 pg (27.0-31.2); Mean Corpuscular Volume 90.7 fl (81-99); Mean Platelet Volume 9.1 fl (7.4-10.4); Monocytes # 0.6 K/mm3 (0.1-1.0); Monocytes % 8.1 % (1.7-9.3); Neutrophils # 4.5 K/mm3 (1.8-7.8); Neutrophils % 59.1 % (37.0-80.0); Platelet Count 211 K/mm3 (142-424); Red Blood Count 4.12 M/mm3 (4.20-5.40); Red Cell Distribution Width 14.6 % (11.5-17.5); White Blood Count 7.7 K/mm3 (4.8-10.8)
[2023-10-24 12:31] LABS: Chloride 102 mmol/L (98-107); Potassium 3.9 mmoL/L (3.5-5.1); Sodium 136 mmol/L (136-145)
[2023-10-24 12:33] LABS: Alanine Aminotransferase 20 U/L (12-78); Aspartate Amino Transferase 26 U/L (14-36); Blood Urea Nitrogen 6 mg/dl (7-17); Creatinine Clearance Estimated 166 mL/min (50-200); Estimated Glomerular Filt Rate 114 ml/min (>60); GFR (African American) 138 ML/MIN (>60)
[2023-10-24 12:34] LABS: Albumin Level 3.5 g/dl (3.5-5.0); Albumin/Globulin Ratio 1.2 (1.1-1.8); Alkaline Phosphatase 43 U/L (38-126); Anion Gap 5.9 mEq/L (5-15); Bilirubin,Total 0.4 mg/dl (0.2-1.3); Calcium 8.6 mg/dl (8.4-10.2); Carbon Dioxide 32 mmol/L (22.0-30.0); Globulin 2.9 g/dL (1.3-3.2); Glucose 110 mg/dl (74-100); Lipase 13 U/L (23-300); Total Protein,Serum 6.4 g/dl (6.3-8.2)
--- NOTE | 2023-10-24 12:39 | PC.NURSE ---
Pt ambulatory to bathroom
[2023-10-24 12:41] VITALS: BP 109/63; PULSE 84; RESP 18; TEMP 36.8
[2023-10-24 12:44] LABS: NT Pro Brain Natriuretic Pep. 776 pg/mL (0-125)
[2023-10-24 12:48] LABS: HCG Qualitative, Serum Negative (Negative)
[2023-10-24 12:51] LABS: T4 (Thyroxine) 4.9 ug/dl (5.53-11.0)
[2023-10-24 13:05] LABS: Thyroid Stimulating Hormone 6.93 uIU/mL (0.465-4.68)
--- NOTE | 2023-10-28 06:25 | PC.NURSE ---
final urine culture read as contaminant. no orders per dr barrientos
== END 2023-10-24 12:47 | disposition home or self-care (01) ==
LOC: UTC 11:40 → ER 11:44
PROVIDERS: Emergency Provider Emergency Medicine; PCP Nurse Practitioner Family
DX: R14.0 Abdominal distension (gaseous) (principal); B96.89 Other specified bacterial agents as the cause of diseases classified elsewhere; F17.210 Nicotine dependence, cigarettes, uncomplicated; B19.20 Unspecified viral hepatitis C without hepatic coma; E03.9 Hypothyroidism, unspecified; J45.909 Unspecified asthma, uncomplicated
CPT/HCPCS: 80053; 81001; 83690; 83880; 84436; 84443; 84703; 85025; 87086; 87636; 99283

== ENCOUNTER 2023-11-25 22:31 | Outpatient (CLI) | payer MEDICAID, SELFPAY ==
[2023-11-25 18:55] LABS: Free T4 (Free Thyroxine) 0.69 ng/dl (0.78-2.19)
[2023-11-25 19:10] LABS: Thyroid Stimulating Hormone 8.78 uIU/mL (0.465-4.68)
[2023-11-29 16:11] LABS: NT Pro Brain Natriuretic Pep. 325 pg/mL (0-125)
[2023-11-29 16:59] LABS: HCG Qualitative, Serum Negative (Negative)
== END 2023-11-25 23:59 ==
LOC: LAB.DROPOF 22:32
PROVIDERS: PCP Student in an Organized Health Care Education/Training Program; Visit Provider Student in an Organized Health Care Education/Training Program
DX: E03.9 Hypothyroidism, unspecified (principal); R60.0 Localized edema
CPT/HCPCS: 83880; 84439; 84443; 84703

== ENCOUNTER 2023-12-09 16:11 | Outpatient (CLI) | payer MEDICAID, SELFPAY ==
[2023-12-09 16:57] LABS: Basophils # 0.1 K/mm3 (0-0.2); Basophils % 1.2 % (0.1-2.0); Eosinophils # 0.5 K/mm3 (0.0-0.4); Hemoglobin 13.7 g/dL (12.2-16.2); Lymphocytes # 3.1 K/mm3 (0.7-4.5); Lymphocytes % 37.1 % (10-50); Mean Corpuscular HGB Conc 32.6 g/dL (31.8-35.4); Mean Corpuscular Hemoglobin 30.1 pg (27.0-31.2); Mean Corpuscular Volume 92.4 fl (81-99); Mean Platelet Volume 9.4 fl (7.4-10.4); Monocytes # 0.4 K/mm3 (0.1-1.0); Monocytes % 5.3 % (1.7-9.3); Neutrophils # 4.1 K/mm3 (1.8-7.8); Neutrophils % 50.4 % (37.0-80.0); Platelet Count 269 K/mm3 (142-424); Red Blood Count 4.55 M/mm3 (4.20-5.40); Red Cell Distribution Width 15.8 % (11.5-17.5); White Blood Count 8.2 K/mm3 (4.8-10.8)
[2023-12-09 18:02] LABS: Alanine Aminotransferase 14 U/L (12-78); Albumin Level 4.7 g/dl (3.5-5.0); Albumin/Globulin Ratio 1.8 (1.1-1.8); Alkaline Phosphatase 58 U/L (38-126); Anion Gap 10.1 mEq/L (5-15); Aspartate Amino Transferase 25 U/L (14-36); Bilirubin,Total 0.6 mg/dl (0.2-1.3); Blood Urea Nitrogen 14 mg/dl (7-17); Calcium 9.1 mg/dl (8.4-10.2); Carbon Dioxide 25 mmol/L (22.0-30.0); Chloride 104 mmol/L (98-107); Estimated Glomerular Filt Rate 82 ml/min (>60); GFR (African American) 99 ML/MIN (>60); Globulin 2.6 g/dL (1.3-3.2); Glucose 95 mg/dl (74-100); Magnesium 1.8 mg/dl (1.6-2.3); Phosphorous 5.3 mg/dl (2.5-4.5); Potassium 4.1 mmoL/L (3.5-5.1); Sodium 135 mmol/L (136-145); Total Protein,Serum 7.3 g/dl (6.3-8.2)
[2023-12-09 18:13] LABS: Intact Parathyroid Hormone 83.3 pg/mL (7.5-53.5)
[2023-12-09 18:27] LABS: Iron 109 ug/dL (37-170)
[2023-12-09 18:41] LABS: Total Iron Binding Capacity 424 ug/dL (265-497)
[2023-12-09 19:06] LABS: Ferritin 12.7 ng/ml (6.24-137)
[2023-12-09 19:08] LABS: Vitamin B12 496 pg/mL (239-931)
[2023-12-09 19:14] LABS: Folate > 20.00 ng/mL
[2023-12-11 16:15] LABS: Peripheral Smear Review Scanned Result
== END 2023-12-09 23:59 ==
LOC: LAB 16:11
PROVIDERS: PCP Nurse Practitioner Family; Visit Provider Student in an Organized Health Care Education/Training Program
DX: E83.51 Hypocalcemia (principal); D64.9 Anemia, unspecified; D72.10 Eosinophilia, unspecified
CPT/HCPCS: 36415; 80053; 82607; 82728; 82746; 83540; 83550; 83735; 83970; 84100; 85025

== ENCOUNTER 2024-02-07 14:14 | Emergency (ER) | payer MEDICAID, SELFPAY ==
[2024-02-07 14:16] VITALS: BP 121/73; PULSE 96; RESP 13; TEMP 36.9; O2SAT 98; BMI 28.7
--- NOTE | 2024-02-07 14:26 | ECG_ITS ---
APPROVED REPORT Exam: Resting ECG HR:81 bpm ECG Measurements Heart Rate 81 AXES NH 131 P 27 QRSd 84 QRS 46 QT 373 T 21 QTc [address] DEPRESSION, CONSIDER SUBENDOCARDIAL INJURY [0.1+ mV ST DEPRESSION] ABNORMAL ECG Electronically signed by : JOSUÉ TOPETE, 02/07/2024 17:05:50
--- NOTE | 2024-02-07 14:40 | ED_ITS ---
<Statement entered by Mini Beyer MD - 02/09/24 14:57> I was consulted by the KRISTINA, and we discussed the complexity of the problems being addressed. I approved the treatment and management plan for this patient's care in the emergency department, thus performing a substantive portion of the medical decision making. Mini Beyer MD, EMILY, FACEP Discharge Plan Disposition Patient Disposition: Home, Self-Care Condition: Good Prescriptions Prescriptions: No Action fluticasone propion-salmeterol 500-50 mcg/dose blister with device 1 inh inhalation BID 30 Days Qty: 1 0RF bumetanide 1 mg tablet 1 mg PO DAILY Qty: 30 0RF naproxen 375 mg tablet 375 mg PO BID PRN (Reason: pain) Qty: 20 0RF buprenorphine-naloxone 8-2 mg tablet, sublingual sublingual hydroxyzine pamoate 50 mg capsule 50 mg PO BID Patient Comments: TAKE 1 CAPSULE BY MOUTH TWICE DAILY FOR ANXIETY furosemide 20 mg tablet 20 mg PO omeprazole 20 mg capsule,delayed release(DR/EC) 20 mg PO DAILY Qty: 30 2RF azelastine 137 mcg (0.1 %) aerosol,spray 1 spray intranasal BID Qty: 30 2RF Rx Instructions: administer into each nostril albuterol sulfate 90 mcg/actuation HFA aerosol inhaler See Rx Instructions .ROUTE .COMPLEX Qty: 8.5 0RF Dose Instruction: INHALE 2 PUFFS BY MOUTH EVERY6 HOURS NEEDED FOR SHORTNESS OF BREATH OR WHEEZING Rx Instructions: INHALE 2 PUFFS BY MOUTH EVERY6 HOURS NEEDED FOR SHORTNESS OF BREATH OR WHEEZING fluticasone propionate [Allergy Relief (fluticasone)] 50 mcg/actuation spray,suspension 1 spray intranasal DAILY Qty: 16 2RF Rx Instructions: administer into each nostril cholecalciferol (vitamin D3) 1,250 mcg (50,000 unit) capsule 1,250 mcg PO WEEKLY Qty: 12 0RF fluoxetine 40 mg capsule See Rx Instructions .ROUTE .COMPLEX Qty: 30 2RF Dose Instruction: TAKE ONE CAPSULE BY MOUTH ONCE A DAY Rx Instructions: TAKE ONE CAPSULE BY MOUTH ONCE A DAY quetiapine [Seroquel] 100 mg tablet 100 mg PO QHS Qty: 30 1RF levothyroxine 50 mcg tablet 50 mcg PO DAILY Qty: 90 1RF Referrals Follow up/Referrals: Tian Hoover APRN [Primary Care Provider] - See instructions Activity Restrictions/Add. Instructions Additional Instructions/Restrictions: Follow-up with your PCP for recheck and evaluation of your thyroid replacement therapy. Return to emergency department as needed for any worsening signs or symptoms including altered mental status chest pain thunderclap headache etc. Clinical Impressions Clinical Impression: Dizziness Headache Qualifiers: Headache type: unspecified Intractability: not intractable Discharge ED Provider: Garry Stevenson General Adult HPI <SHAR Sandoval - Last Filed: 02/07/24 17:28> General Chief complaint: Dizziness Stated complaint: prev CP Time Seen by Provider: 02/07/24 14:23 Mode of Arrival: Ambulatory Source of Information: Patient Limitations: No Limitations Description of Symptoms (Recalled from ER Triage Doc. by RN): pt presents to ED from primary [facility] for further evaluation. pt reports for the past week she has had dizziness, headahce, numbness in both arms, chest pain intermittent. pt reports symptoms have been getting worse over the past few days. History of Present Illness HPI narrative: Patient presents for evaluation of headache, dizziness, chest pain. Patient reports that she has had intermittent dizziness intermittent headache and intermittent chest pain for a week. Patient reports no aggravating or relieving factors and no provoking timing. Patient does have a history of previous subarachnoid hemorrhage, cerebral aneurysm status post aneurysmal coiling, previous craniotomy, history of IV drug use most recently heroin for which she was released from rehab a week ago today. Patient has no history of vestibular disorder and is on no antihypertensives. She was prescribed trazodone and Vistaril and Seroquel upon her discharge from rehab in addition to her Suboxone. She denies any focal neurologic changes including change in vision loss of taste or smell intractable headache thunderclap type headache Related Data Home Medications Medication Instructions Recorded Confirmed buprenorphine 8 mg-naloxone 2 mg tab sublingual 02/07/24 02/07/24 sublingual tablet furosemide 20 mg tablet 20 mg PO 02/07/24 02/07/24 hydroxyzine pamoate 50 mg capsule 50 mg PO BID 02/07/24 02/07/24 Previous Rx's Medication Instructions Recorded fluticasone propionate 50 1 spray intranasal DAILY #16 grams 08/09/23 mcg/actuation nasal spray,suspension (Allergy Relief (fluticasone)) omeprazole 20 mg capsule,delayed 20 mg PO DAILY #30 caps 09/14/23 release cholecalciferol (vitamin D3) 1,250 1,250 mcg PO WEEKLY #12 caps 09/15/23 mcg (50,000 unit) capsule fluoxetine 40 mg capsule See Rx Instructions .Route 10/11/23 .COMPLEX #30 caps quetiapine 100 mg tablet (Seroquel) 100 mg PO QHS #30 tabs 10/13/23 albuterol sulfate 90 mcg/actuation See Rx Instructions .Route 10/29/23 aerosol inhaler .COMPLEX #8.5 grams azelastine 137 mcg (0.1 %) nasal 1 spray intranasal BID #30 mL 10/29/23 spray aerosol levothyroxine 50 mcg tablet 50 mcg PO DAILY #90 tabs 11/26/23 bumetanide 1 mg tablet 1 mg PO DAILY #30 tabs 01/06/24 fluticasone 500 mcg-salmeterol 50 1 inh inhalation BID 30 days #1 ea 01/06/24 mcg/dose blistr powdr for inhalation naproxen 375 mg tablet 375 mg PO BID PRN pain #20 tabs 01/06/24 Allergies Allergy/AdvReac Type Severity Reaction Status Date / Time amoxicillin Allergy Severe Hives Verified 02/07/24 13:26 erythromycin base Allergy Severe Hives Verified 02/07/24 13:26 Penicillins Allergy Severe Hives Verified 02/07/24 13:26 [facility] <SHAR Sandoval - Last Filed: 02/07/24 17:28> [facility] Disclaimer: The information contained in this section may have been updated after the patient was seen, as this information can be updated by other users. Medical History Moderate persistent asthma Insomnia Major depressive disorder Asthma Acquired pneumomediastinum Cerebral aneurysm Hepatitis C infection Tobacco dependence Active intravenous drug use Heroin addiction Methamphetamine dependence Pneumomediastinum Surgical History H/O craniotomy Family History Mother Lupus Father Diabetes Hypertension Social History Smoking Status: Current every day smoker tobacco type: cigarettes packs per day: 1 alcohol intake: current alcohol intake frequency: 3 or more drinks per day substance use type: heroin current occupational status: unemployed and disabled Travel in the last 8 weeks: None household members: significant other housing: apartment number of children: 4 <SHAR Sandoval - Last Filed: 02/07/24 17:28> ROS Obtained: Yes Systems reviewed as appropriate & no additional complaints except as documented Physical Exam <SHAR Sandoval - Last Filed: 02/07/24 17:28> General General appearance: alert and in no apparent distress Head Head exam: atraumatic and normal inspection Eye Eye exam: Present normal appearance, PERRL and EOMI; Absent nystagmus ENT ENT exam: Present normal exam, normal oropharynx (Patient is edentulous) and mucous membranes moist Neck Neck exam: Present normal inspection, full ROM and trachea midline; Absent tenderness, meningismus or lymphadenopathy Chest Chest inspection: Present normal inspection and symmetric chest wall rise Respiratory Respiratory exam: Present normal lung sounds bilaterally; Absent respiratory distress Cardiovascular Cardiovascular exam: Present regular rate, normal rhythm, normal heart sounds, +S1 and +S2 Extremities Exam Extremities exam: Present normal inspection and full ROM; Absent tenderness or edema Back Exam Back exam: Present normal inspection and full ROM; Absent tenderness Neurological Exam Neurological exam: Present alert, oriented X3, CN II-XII intact, normal gait and reflexes normal; Absent motor sensory deficit Psychiatric Psychiatric exam: Present normal affect and normal mood Skin Skin exam: Present warm, dry and normal color Medical Decision Making <SHAR Sandoval - Last Filed: 02/07/24 17:28> Medical Records Medical records reviewed: Yes I reviewed the patient's medical records. Jung Inquiry Pt receiving controlled substance: No Vital Signs: 02/07/24 14:16 02/07/24 17:41 Temperature 98.5 F 98.5 F Temperature Source Oral Pulse Rate 96 H Pulse Rate [Left Radial] 96 H Respiratory Rate 13 13 Blood Pressure 121/73 Blood Pressure [Right Arm] 121/73 Blood Pressure Mean [Right Arm] 89 02 Sat by Pulse Oximetry 98 Oxygen Delivery Method Room Air Lab Data Lab results reviewed: Yes I reviewed the patient's lab results. Lab Results 02/07/24 14:49: Urine Color Yellow, Urine Appearance Clear, Urine pH 6.0, Ur Specific Chana >= 1.030, Urine Protein Trace, Urine Glucose (UA) Negative, Urine Ketones Trace, Urine Blood Trace-i, Urine Nitrate Negative, Urine Bilirubin 1+ A, Urine Urobilinogen 1.0, Ur Leukocyte Esterase Negative, Urine RBC None, Urine WBC None, Ur Squamous Epith Cells 3-5, Urine Bacteria Trace, Urine Mucus 1+, Urine HCG, Qual Negative 02/07/24 15:15: WBC 5.0, RBC 4.79, Hgb 14.4, Hct 44.3, MCV 92.6, MCH 30.2, MCHC 32.6, RDW 15.4, Plt Count 175, MPV 10.3, Neut % (Auto) 59.5, Lymph % (Auto) 29.3, [place] % (Auto) 5.4, Eos % (Auto) 4.3, Baso % (Auto) 1.5, Neut # (Auto) 3.0, Lymph # (Auto) 1.5, [place] # (Auto) 0.3, Eos # (Auto) 0.2, Baso # (Auto) 0.1, PT 11.6, INR 1.08, Lactate 0.9 02/07/24 16:24: Sodium 137, Potassium 3.9, Chloride 106, Carbon Dioxide 23, Anion Gap 11.9, BUN 9, Creatinine 0.70, Estimated Creat Clear 126, Estimated GFR 95, Est GFR ( Amer) 115, Glucose 88, Calcium 8.6, Magnesium 1.6, Total Bilirubin 0.3, AST 34, ALT 22, Alkaline Phosphatase 55, Troponin I < 0.01, C- Reactive Protein 25.3 H, Total Protein 5.8 L, Albumin 3.4 L, Globulin 2.4, Albumin/Globulin Ratio 1.4, Lipase 21 L, TSH 0.25 L 02/07/24 15:15 02/07/24 16:24 Orders (Tests/Meds): ED MEDICATIONS Discontinued Medications Generic Name Dose Route Start Last Admin Trade Name Freq PRN Reason Stop Dose Admin Acetaminophen 1,000 mg 02/07/24 14:40 02/07/24 15:50 Acetaminophen 1,000mg/100ml Vial IV 02/07/24 14:41 1,000 mg ONCE ONE Administration Dexamethasone Sodium Phosphate 10 mg 02/07/24 14:40 02/07/24 15:49 Dexamethasone 4mg/Ml 5ml Mdv IV 02/07/24 14:41 10 mg ONCE ONE Administration Lactated Ringer's 1,000 mls @ 999 mls/hr 02/07/24 14:40 02/07/24 15:50 Lactated Ringer's 1000 Ml Bag IV 02/07/24 15:40 999 mls/hr .Q1H1M ONE Administration Iopamidol 160 ml 02/07/24 16:43 02/07/24 16:44 Iopamidol-370 (76%);100ml Bottle IV 02/07/24 16:44 160 ml ONCE ONE Administration Meclizine HCl 25 mg 02/07/24 14:40 02/07/24 15:49 Meclizine 25mg Tablet PO 02/07/24 14:41 25 mg ONCE ONE Administration Sodium Chloride 50 ml 02/07/24 16:43 02/07/24 16:44 0.9 % Sodium Chloride 50 Ml Vial IV 02/07/24 16:44 50 ml ONCE ONE Administration Sodium Chloride 10 ml 02/07/24 16:43 Sodium Chloride 0.9% 10ml Syr (Rad Only) IV 03/08/24 16:42 NEEDED PRN Maintain IV Site ORDERS Category Date Time Status CT angio chest PE protocol Stat Cat Scan 02/07/24 14:[address] angio head Stat Cat Scan 02/07/24 14:[address] head/brain wo con Stat Cat Scan 02/07/24 14:42 Completed CBC w/Auto Diff [Complete Blood Count Auto Diff] Stat Lab 02/07/24 15:15 Completed CMP [Comprehensive Metabolic Panel] Stat Lab 02/07/24 16:24 Completed CRP [C-Reactive Protein] Stat Lab 02/07/24 16:24 Completed INR [Prothrombin Time INR] Stat Lab 02/07/24 15:15 Completed Lactic Acid Stat Lab 02/07/24 15:15 Completed Lipase Stat Lab 02/07/24 16:24 Completed Magnesium Stat Lab 02/07/24 16:24 Completed TSH [Thyroid Stimulating Hormone] Stat Lab 02/07/24 16:24 Completed Trop I [Troponin I] Stat Lab 02/07/24 16:24 Completed UA [Urinalysis and Microscopic] Stat Lab 02/07/24 14:49 Completed Urine , HCG Qual. Stat Lab 02/07/24 14:49 Completed Medical Decision Narrative: In summary patient is a 33-year-old female who presents to the emergency department for evaluation of headache dizziness and chest pain. Patient is hemodynamically stable upon arrival, afebrile. Physical exam is remarkable for subjective dizziness however patient has stable vital signs and a normal heart rate and is normotensive while experiencing the symptoms. Glascow coma score is 15 currently. Patient has been chest pain-free since yesterday evening before she went to bed and it has not recurred today. Patient has no meningeal signs. Differential diagnosis includes vestibular disorder, intracranial bleed, intracranial aneurysm, ACS etc. Initial workup will be conducted with hematologic labs twelve-lead EKG CTA and CT of the head. Initial interventions include Toradol Tylenol Decadron meclizine continuous cardiac monitoring continuous pulse oximetry. Initial workup reviewed by me shows that her her TSH is 0.25 which is supratherapeutic could account for some of her symptoms. Upon repeat evaluation had no chest pain and reports improvement in her symptoms. Given this patient will be referred back to her PCP as we have found no serious or life-threatening abnormalities. Patient to return for any worsening signs or symptoms as needed <Garry Stevenson MD - Last Filed: 02/07/24 19:15> Vital Signs: 02/07/24 14:16 02/07/24 17:41 Temperature 98.5 F 98.5 F Temperature Source Oral Pulse Rate 96 H Pulse Rate [Left Radial] 96 H Respiratory Rate 13 13 Blood Pressure 121/73 Blood Pressure [Right Arm] 121/73 Blood Pressure Mean [Right Arm] 89 02 Sat by Pulse Oximetry 98 Oxygen Delivery Method Room Air Lab Data Lab Results 02/07/24 14:49: Urine Color Yellow, Urine Appearance Clear, Urine pH 6.0, Ur Specific Chana >= 1.030, Urine Protein Trace, Urine Glucose (UA) Negative, Urine Ketones Trace, Urine Blood Trace-i, Urine Nitrate Negative, Urine Bilirubin 1+ A, Urine Urobilinogen 1.0, Ur Leukocyte Esterase Negative, Urine RBC None, Urine WBC None, Ur Squamous Epith Cells 3-5, Urine Bacteria Trace, Urine Mucus 1+, Urine HCG, Qual Negative 02/07/24 15:15: WBC 5.0, RBC 4.79, Hgb 14.4, Hct 44.3, MCV 92.6, MCH 30.2, MCHC 32.6, RDW 15.4, Plt Count 175, MPV 10.3, Neut % (Auto) 59.5, Lymph % (Auto) 29.3, [place] % (Auto) 5.4, Eos % (Auto) 4.3, Baso % (Auto) 1.5, Neut # (Auto) 3.0, Lymph # (Auto) 1.5, [place] # (Auto) 0.3, Eos # (Auto) 0.2, Baso # (Auto) 0.1, PT 11.6, INR 1.08, Lactate 0.9 02/07/24 16:24: Sodium 137, Potassium 3.9, Chloride 106, Carbon Dioxide 23, Anion Gap 11.9, BUN 9, Creatinine 0.70, Estimated Creat Clear 126, Estimated GFR 95, Est GFR ( Amer) 115, Glucose 88, Calcium 8.6, Magnesium 1.6, Total Bilirubin 0.3, AST 34, ALT 22, Alkaline Phosphatase 55, Troponin I < 0.01, C- Reactive Protein 25.3 H, Total Protein 5.8 L, Albumin 3.4 L, Globulin 2.4, Albumin/Globulin Ratio 1.4, Lipase 21 L, TSH 0.25 L Orders (Tests/Meds): ED MEDICATIONS Discontinued Medications Generic Name Dose Route Start Last Admin Trade Name Leyda PRN Reason Stop Dose Admin Acetaminophen 1,000 mg 02/07/24 14:40 02/07/24 15:50 Acetaminophen 1,000mg/100ml Vial IV 02/07/24 14:41 1,000 mg ONCE ONE Administration Dexamethasone Sodium Phosphate 10 mg 02/07/24 14:40 02/07/24 15:49 Dexamethasone 4mg/Ml 5ml Mdv IV 02/07/24 14:41 10 mg ONCE ONE Administration Lactated Ringer's 1,000 mls @ 999 mls/hr 02/07/24 14:40 02/07/24 15:50 Lactated Ringer's 1000 Ml Bag IV 02/07/24 15:40 999 mls/hr .Q1H1M ONE Administration Iopamidol 160 ml 02/07/24 16:43 02/07/24 16:44 Iopamidol-370 (76%);100ml Bottle IV 02/07/24 16:44 160 ml ONCE ONE Administration Meclizine HCl 25 mg 02/07/24 14:40 02/07/24 15:49 Meclizine 25mg Tablet PO 02/07/24 14:41 25 mg ONCE ONE Administration Sodium Chloride 50 ml 02/07/24 16:43 02/07/24 16:44 0.9 % Sodium Chloride 50 Ml Vial IV 02/07/24 16:44 50 ml ONCE ONE Administration Sodium Chloride 10 ml 02/07/24 16:43 Sodium Chloride 0.9% 10ml Syr (Rad Only) IV 03/08/24 16:42 NEEDED PRN Maintain IV Site ORDERS Category Date Time Status CT angio chest PE protocol Stat Cat Scan 02/07/24 14:[address] angio head Stat Cat Scan 02/07/24 14:[address] head/brain wo con Stat Cat Scan 02/07/24 14:42 Completed CBC w/Auto Diff [Complete Blood Count Auto Diff] Stat Lab 02/07/24 15:15 Completed CMP [Comprehensive Metabolic Panel] Stat Lab 02/07/24 16:24 Completed CRP [C-Reactive Protein] Stat Lab 02/07/24 16:24 Completed INR [Prothrombin Time INR] Stat Lab 02/07/24 15:15 Completed Lactic Acid Stat Lab 02/07/24 15:15 Completed Lipase Stat Lab 02/07/24 16:24 Completed Magnesium Stat Lab 02/07/24 16:24 Completed TSH [Thyroid Stimulating Hormone] Stat Lab 02/07/24 16:24 Completed Trop I [Troponin I] Stat Lab 02/07/24 16:24 Completed UA [Urinalysis and Microscopic] Stat Lab 02/07/24 14:49 Completed Urine , HCG Qual. Stat Lab 02/07/24 14:49 Completed Medical Decision Narrative: In summary patient is a 33-year-old female who presents to the emergency department for evaluation of headache dizziness and chest pain. Patient is hemodynamically stable upon arrival, afebrile. Physical exam is remarkable for subjective dizziness however patient has stable vital signs and a normal heart rate and is normotensive while experiencing the symptoms. Glascow coma score is 15 currently. Patient has been chest pain-free since yesterday evening before she went to bed and it has not recurred today. Patient has no meningeal signs. Differential diagnosis includes vestibular disorder, intracranial bleed, intracranial aneurysm, ACS etc. Initial workup will be conducted with hematologic labs twelve-lead EKG CTA and CT of the head. Initial interventions include Toradol Tylenol Decadron meclizine continuous cardiac monitoring continuous pulse oximetry. Initial workup reviewed by me shows that her her TSH is 0.25 which is supratherapeutic could account for some of her symptoms. Upon repeat evaluation had no chest pain and reports improvement in her symptoms. Given this patient will be referred back to her PCP as we have found no serious or life-threatening abnormalities. Patient to return for any worsening signs or symptoms as needed. I was consulted by the KRISTINA, and we discussed the complexity of the problems being addressed. I approved the treatment and management plan for this patient's care in the emergency department, thus performing a substantive portion of the medical decision making. Garry Stevenson MD Critical Care <SHAR Sandoval - Last Filed: 02/07/24 17:28> Critical Care Time Critical Care Time: No
--- NOTE | 2024-02-07 14:40 | CT_ITS ---
PROCEDURE INFORMATION: Exam: CTA Head With Contrast, Arteriography Exam date and time: 02/07/2024 4:38 PM Age: 33 years old Clinical indication: Dizziness and giddiness and headache; Prior surgery; Surgery date: 6+ months; Surgery type: Craniotomy; Additional info: Headache, dizziness, history of previous aneurysm TECHNIQUE: Imaging protocol: Computed tomographic angiography of the head with contrast. Exam focused on the arteries. 3D rendering (Not supervised by radiologist): MIP and/or 3D reconstructed images were created by the technologist. Radiation optimization: All CT scans at this facility use at least one of these dose optimization techniques: automated exposure control; mA and/or kV adjustment per patient size (includes targeted exams where dose is matched to clinical indication); or iterative reconstruction. Contrast material: ISOVUE 370; Contrast volume: 100 ml; Contrast route: INTRAVENOUS (IV); COMPARISON: CT HEAD/BRAIN WO CON 02/07/2024 4:35 PM FINDINGS: ANTERIOR CIRCULATION: Right internal carotid artery: Intracranial segment is patent with no significant stenosis. No aneurysm. Right middle cerebral artery: No occlusion or significant stenosis. No aneurysm. Right anterior cerebral artery: No occlusion or significant stenosis. No aneurysm. Left internal carotid artery: Intracranial segment is patent with no significant stenosis. No aneurysm. Left middle cerebral artery: No occlusion or significant stenosis. No aneurysm. Left anterior cerebral artery: No occlusion or significant stenosis. No aneurysm. POSTERIOR CIRCULATION: Right vertebral artery: Right vertebral artery is dominant. Left vertebral artery: No occlusion or significant stenosis. No aneurysm. Basilar artery: No occlusion or significant stenosis. No aneurysm. Right posterior cerebral artery: No occlusion or significant stenosis. No aneurysm. Left posterior cerebral artery: No occlusion or significant stenosis. No aneurysm. IMPRESSION: 1. No acute vascular pathology. 2. Previous left posterior fossa clipping/embolization.
--- NOTE | 2024-02-07 14:41 | CT_ITS ---
PROCEDURE INFORMATION: Exam: CTA Chest With Contrast Exam date and time: 02/07/2024 4:42 PM Age: 33 years old Clinical indication: Pain; Chest pressure; Additional info: Chest pain TECHNIQUE: Imaging protocol: Computed tomographic angiography of the chest with contrast. Exam focused on the arteries. 3D rendering (Not supervised by radiologist): MIP and/or 3D reconstructed images were created by the technologist. Radiation optimization: All CT scans at this facility use at least one of these dose optimization techniques: automated exposure control; mA and/or kV adjustment per patient size (includes targeted exams where dose is matched to clinical indication); or iterative reconstruction. Contrast material: ISOVUE 370; Contrast volume: 60 ml; Contrast route: INTRAVENOUS (IV); COMPARISON: CT ANGIO CHEST PE PROTOCOL 08/30/2022 10:56 AM FINDINGS: Limitations: Motion artifact in the lower lobes could obscure small peripheral emboli. Pulmonary arteries: Normal caliber pulmonary arteries. No visible pulmonary emboli. Aorta: Unremarkable. No aortic aneurysm. No aortic dissection. Lungs: Right upper lobe calcified granuloma. The lungs are otherwise clear. Pleural spaces: Unremarkable. No pneumothorax. No pleural effusion. Heart: Unremarkable. No cardiomegaly. No pericardial effusion. Lymph nodes: Unremarkable. No enlarged lymph nodes. Bones/joints: Unremarkable. No acute fracture. Soft tissues: Unremarkable. IMPRESSION: 1. Motion artifact in the lower lobes could obscure small peripheral emboli. 2. Normal caliber pulmonary arteries. No visible pulmonary emboli.
--- NOTE | 2024-02-07 14:42 | CT_ITS ---
PROCEDURE INFORMATION: Exam: CT Head Without Contrast Exam date and time: 02/07/2024 4:35 PM Age: 33 years old Clinical indication: Pain; Dizziness; Headache; Prior surgery; Surgery date: 6+ months; Surgery type: Craniotomy; Additional info: Headache, dizziness, history of aneurysm TECHNIQUE: Imaging protocol: Computed tomography of the head without contrast. Radiation optimization: All CT scans at this facility use at least one of these dose optimization techniques: automated exposure control; mA and/or kV adjustment per patient size (includes targeted exams where dose is matched to clinical indication); or iterative reconstruction. COMPARISON: CT HEAD/BRAIN W CON 04/26/2023 8:03 PM FINDINGS: Brain: There is left cerebellar encephalomalacia. Associated clips/embolic material. No acute intracranial hemorrhage. No midline shift. Cerebral ventricles: No hydrocephalus. Paranasal sinuses: Scattered paranasal sinus disease. Mastoid air cells: Visualized mastoid air cells are well aerated. Bones: Previous occipital craniotomy. Soft tissues: Unremarkable. IMPRESSION: No acute intracranial abnormality.
[2024-02-07 14:56] LABS: Microscopic, Urine URINE MICROSCOPIC (MICROSCOPIC)
[2024-02-07 14:59] LABS: Appearance,Urine CLEAR (Clear); Blood, Urine TRACE-I (Negative); Color,Urine YELLOW (Yellow); Glucose,Urine (UA) Negative (Negative); Ketones,Urine TRACE (Negative); Leukocyte Esterase,Urine Negative (Negative); Nitrate,Urine Negative (Negative); Protein,Urine TRACE (Negative); Specific Gravity, Urine >= 1.030 (1.005-1.030)
[2024-02-07 15:01] LABS: Urine Pregnancy, HCG Qual. Negative (Negative)
--- NOTE | 2024-02-07 15:02 | HMH.ITSTN ---
called and spoke with mt, I need a preg test on [place] for CT's
[2024-02-07 15:12] LABS: Bacteria,Urine Trace /lpf; Bilirubin,Urine 1+ (Negative)
[2024-02-07 15:13] LABS: Mucus,Urine 1+ /lpf
[2024-02-07 15:35] LABS: Basophils # 0.1 K/mm3 (0-0.2); Basophils % 1.5 % (0.1-2.0); Eosinophils # 0.2 K/mm3 (0.0-0.4); Eosinophils % 4.3 % (0.1-12.0); Hematocrit 44.3 % (37.0-47.0); Hemoglobin 14.4 g/dL (12.2-16.2); Lymphocytes # 1.5 K/mm3 (0.7-4.5); Lymphocytes % 29.3 % (10-50); Mean Corpuscular HGB Conc 32.6 g/dL (31.8-35.4); Mean Corpuscular Hemoglobin 30.2 pg (27.0-31.2); Mean Corpuscular Volume 92.6 fl (81-99); Mean Platelet Volume 10.3 fl (7.4-10.4); Monocytes # 0.3 K/mm3 (0.1-1.0); Monocytes % 5.4 % (1.7-9.3); Neutrophils % 59.5 % (37.0-80.0); Platelet Count 175 K/mm3 (142-424); Red Blood Count 4.79 M/mm3 (4.20-5.40); Red Cell Distribution Width 15.4 % (11.5-17.5)
[2024-02-07 15:40] LABS: Lactic Acid 0.9 mmol/L (0.7-2.1)
[2024-02-07 15:41] LABS: INR 1.08 (0.9-1.1); Prothrombin Time 11.6 seconds (10.1-12.5)
[2024-02-07] MEDS: DEXAMETHASONE 4MG/ML 5ML MDV 10 MG IV (15:49)
[2024-02-07] MEDS: MECLIZINE 25MG TABLET 25 MG PO (15:49)
[2024-02-07] MEDS: LACTATED RINGERS 1000ML 1,000 ML 999 ML IV (15:50)
[2024-02-07] MEDS: ACETAMINOPHEN 1,000MG/100ML VIAL 1000 MG IV (15:50)
[2024-02-07] MEDS: IOPAMIDOL-370 (76%);100ML BOTTLE 160 ML IV (16:44)
[2024-02-07] MEDS: 0.9 % SODIUM CHLORIDE 50 ML VIAL IV (16:44)
[2024-02-07 16:45] LABS: Alanine Aminotransferase 22 U/L (12-78); Albumin Level 3.4 g/dl (3.5-5.0); Albumin/Globulin Ratio 1.4 (1.1-1.8); Alkaline Phosphatase 55 U/L (38-126); Anion Gap 11.9 mEq/L (5-15); Aspartate Amino Transferase 34 U/L (14-36); Bilirubin,Total 0.3 mg/dl (0.2-1.3); Blood Urea Nitrogen 9 mg/dl (7-17); Calcium 8.6 mg/dl (8.4-10.2); Carbon Dioxide 23 mmol/L (22.0-30.0); Chloride 106 mmol/L (98-107); Creatinine Clearance Estimated 126 mL/min (50-200); Estimated Glomerular Filt Rate 95 ml/min (>60); GFR (African American) 115 ML/MIN (>60); Globulin 2.4 g/dL (1.3-3.2); Glucose 88 mg/dl (74-100); Lipase 21 U/L (23-300); Magnesium 1.6 mg/dl (1.6-2.3); Potassium 3.9 mmoL/L (3.5-5.1); Sodium 137 mmol/L (136-145); Total Protein,Serum 5.8 g/dl (6.3-8.2)
[2024-02-07 16:50] LABS: C-Reactive Protein 25.3 mg/L (0-4)
[2024-02-07 17:05] LABS: Troponin I < 0.01 ng/ml (0.00-0.034)
[2024-02-07 17:18] LABS: Thyroid Stimulating Hormone 0.25 uIU/mL (0.465-4.68)
[2024-02-07 17:41] VITALS: BP 121/73; PULSE 96; RESP 13; TEMP 36.9
== END 2024-02-07 17:41 | disposition home or self-care (01) ==
PROVIDERS: Physician Assistant; Student in an Organized Health Care Education/Training Program; Emergency Provider Emergency Medicine; PCP Nurse Practitioner Family
DX: R07.9 Chest pain, unspecified (principal); R51.9 Headache, unspecified; R42 Dizziness and giddiness; F17.210 Nicotine dependence, cigarettes, uncomplicated; F11.11 Opioid abuse, in remission; Z86.79 Personal history of other diseases of the circulatory system
CPT/HCPCS: 70450; 70496; 71275; 80053; 81001; 81025; 83605; 83690; 83735; 84443; 84484; 85025; 85610; 86140; 93005; 96361; 96374; 96375; 99285; J0131; Q9967

== ENCOUNTER 2024-02-15 13:09 | Outpatient (CLI) | payer MEDICAID, SELFPAY ==
[2024-02-15 14:23] LABS: Triiodothryronine (T3) Uptake 39 % (23.5-40.5)
[2024-02-15 14:24] LABS: Free Thyroxine Index 1.1 ug/dL (5.93-13.13); T4 (Thyroxine) 2.9 ug/dl (5.53-11.0)
[2024-02-15 14:39] LABS: Thyroid Stimulating Hormone 6.61 uIU/mL (0.465-4.68)
== END 2024-02-15 23:59 | disposition home or self-care (01) ==
LOC: LAB 13:10
PROVIDERS: PCP Nurse Practitioner Family; Visit Provider Student in an Organized Health Care Education/Training Program
DX: E03.9 Hypothyroidism, unspecified (principal)
CPT/HCPCS: 36415; 84436; 84443; 84479

== ENCOUNTER 2024-02-17 14:39 | Outpatient (CLI) | payer MEDICAID, SELFPAY ==
--- NOTE | 2024-02-17 14:39 | US_ITS ---
FINAL REPORT TECHNIQUE: Real-time grayscale and color ultrasound of the thyroid was performed. CLINICAL HISTORY: hypothryoidism COMPARISON: None FINDINGS: The thyroid gland is normal in size measuring 44 x 17 x 17 mm on the right and 38 x 15 x 16 mm on the left. The isthmus measures 3 mm. There is a mildly heterogeneous appearance which may be seen with goiter. Nodules: No evidence of mass or neoplasm. IMPRESSION: Mildly heterogeneous thyroid gland with no evidence of mass or neoplasm. Reviewed, Interpreted and Dictated by Davina Carmona MD Transcribed by Charlene Knowles Authenticated and [facility]
== END 2024-02-17 23:59 | disposition home or self-care (01) ==
LOC: RAD 14:39
PROVIDERS: PCP Student in an Organized Health Care Education/Training Program; Visit Provider Student in an Organized Health Care Education/Training Program
DX: E03.9 Hypothyroidism, unspecified (principal)
CPT/HCPCS: 76536

== ENCOUNTER 2024-04-14 13:17 | Emergency (ER) | payer MEDICAID, SELFPAY ==
[2024-04-14] VITALS (38 sets, daily range): BP systolic 113–165; BP diastolic 71–131; PULSE 86–122; RESP 16–33; TEMP 35.8–36.6; O2SAT 97–100; BMI 29.0
--- NOTE | 2024-04-14 13:12 | ECG_ITS ---
APPROVED REPORT Exam: Resting ECG HR:102 bpm ECG Measurements Heart Rate 102 AXES TX 131 P 78 QRSd 98 QRS 80 QT 326 T 46 QTc 385 Conclusion SINUS TACHYCARDIA ABNORMAL RHYTHM ECG Electronically signed by : MCKENNA RAMIREZ, 04/14/2024 23:50:52
--- NOTE | 2024-04-14 13:16 | CT_ITS ---
FINAL REPORT TECHNIQUE: Thin section axial CT with contrast with multiplanar reconstruction This study was performed with techniques to keep radiation doses as low as reasonably achievable, (ALARA). Individualized dose reduction techniques using automated exposure control or adjustment of mA and/or kV according to the patient''s size were employed. CLINICAL HISTORY: found down, code. History of IVDU/endocarditis COMPARISON: 02/07/2024 FINDINGS: There is severe respiratory motion artifact. No gross pulmonary embolism is identified. Thoracic aorta shows no dissection or aneurysm. There is airspace disease in the left suprahilar upper lobe suspicious for pneumonia. The right lung is clear. There is mild left lower lobe atelectasis. There is no significant pleural effusion. There is no significant pericardial effusion. No mediastinal or hilar adenopathy is present. IMPRESSION: No gross pulmonary embolism. Left upper lobe airspace disease suspicious for pneumonia including potentially aspiration. Reviewed, Interpreted and Dictated by Davina Carmona MD Transcribed by Alexsandra Beckett Authenticated and [facility]
--- NOTE | 2024-04-14 13:16 | CT_ITS ---
FINAL REPORT CLINICAL HISTORY: AMS, found down, code FINDINGS: CT NECK ANGIO, WITHOUT AND WITH CONTRAST TECHNIQUE: Thin section axial CT with contrast with multiplanar 3D MIP reconstruction. NASCET criteria and technique was utilized during interpretation. Significant motion artifact is identified. Aortic arch: Arch shows no significant narrowing. Great vessel origins are widely patent. Right carotid: No significant stenosis is seen of the cervical common or internal carotid artery. Left carotid: No significant stenosis is seen of the cervical common or internal carotid artery. Vertebrals: Right vertebral artery is dominant. No significant stenosis is present. IMPRESSION: No significant stenosis of the cervical carotid arteries This study was performed using automated techniques to achieve radiation exposure as low as reasonably Reviewed, Interpreted and Dictated by Davina Carmona MD Transcribed by Alexsandra Beckett Authenticated and [facility]
--- NOTE | 2024-04-14 13:16 | CT_ITS ---
FINAL REPORT TECHNIQUE: Pre-and postcontrast images of the abdomen were performed by computed tomography. Extensive 3-D reconstruction images were performed. A CTA was performed. This study was performed with techniques to keep radiation doses as low as reasonably achievable (ALARA). Individualized dose reduction techniques using automated exposure control or adjustment of mA and/or kV according to the patient''s size were employed. CLINICAL HISTORY: trauma, critical injury suspected FINDINGS: ABDOMEN/PELVIS: Significant motion artifact is identified. Precontrast images demonstrate no evidence of nephrolithiasis. No adrenal masses are identified. Hypodensities within the superior liver are probably artifact, less likely hepatic contusion. The remaining solid organs are unremarkable. The gallbladder is contracted. There is moderate gastric distention with air and fluid. There is no free air. Lobulated uterus is probably due to fibroids. The ovaries are normal. The bladder is decompressed with Romero catheter present. CTA: The aorta and iliac vessels are normal without evidence of aneurysm or dissection. The renal and mesenteric arteries are widely patent. IMPRESSION: Unremarkable CTA of the abdominal aorta and major branch vessels. Hypodensities of the superior liver, favor artifact over posttraumatic etiology or even focal fatty change. CT follow-up may be considered in 48-72 hours. Gastric distension. Reviewed, Interpreted and Dictated by Davina Carmona MD Transcribed by Alexsandra Beckett Authenticated and [facility]
--- NOTE | 2024-04-14 13:16 | CT_ITS ---
FINAL REPORT TECHNIQUE: Noncontrast exam This study was performed with techniques to keep radiation doses as low as reasonably achievable, (ALARA). Individualized dose reduction techniques using automated exposure control or adjustment of mA and/or kV according to the patient''s size were employed. CLINICAL HISTORY: AMS, found down, code COMPARISON: 02/07/2024 FINDINGS: Significant motion artifact is identified. There are postoperative changes of the posterior fossa. Left cerebellar encephalomalacia is stable. The remaining parenchyma is unremarkable. No abnormal density is seen. Ventricles are normal. There is no hemorrhage. No mass effect is seen. Bone windows show no evidence of fracture. IMPRESSION: No gross acute findings. Exam limited by motion artifact. Reviewed, Interpreted and Dictated by Davina Carmona MD Transcribed by Alexsandra Beckett Authenticated and [facility]
--- NOTE | 2024-04-14 13:16 | CT_ITS ---
FINAL REPORT CLINICAL HISTORY: AMS, found down, code FINDINGS: CTA HEAD TECHNIQUE: Thin section axial CT with contrast with 3D MIP reconstruction Significant motion artifact is identified. No aneurysm is seen. Major intracranial vessels are patent without significant stenosis. . IMPRESSION: Unremarkable This study was performed using automated techniques to achieve radiation exposure as low as reasonably achievable Reviewed, Interpreted and Dictated by Davina Carmona MD Transcribed by Alexsandra Beckett Authenticated and [facility]
--- NOTE | 2024-04-14 13:16 | CT_ITS ---
FINAL REPORT CLINICAL HISTORY: AMS, found down, code FINDINGS: CT LUMBAR SPINE TECHNIQUE: Thin section axial CT with sagittal and coronal reconstructions No fracture is present. Alignment is normal. No bony canal stenosis is seen. No significant disc abnormalities. IMPRESSION: Negative CT evaluation of the lumbar spine for acute bony injury. This study was performed using automated techniques to achieve radiation exposure as low as reasonably achievable Reviewed, Interpreted and Dictated by Davina Carmona MD Transcribed by Alexsandra Beckett Authenticated and [facility]
--- NOTE | 2024-04-14 13:16 | CT_ITS ---
FINAL REPORT TECHNIQUE: Thin section axial CT with sagittal reconstruction without contrast This study was performed with techniques to keep radiation doses as low as reasonably achievable, (ALARA). Individualized dose reduction techniques using automated exposure control or adjustment of mA and/or kV according to the patient''s size were employed. CLINICAL HISTORY: AMS, found down, code COMPARISON: 01/04/2021 FINDINGS: Significant motion artifact makes assessment of alignment difficult. No obvious fracture is seen. Surgical changes are noted from occipital craniectomy. No obvious bony spinal canal stenosis is present. No gross disk abnormalities are seen. IMPRESSION: Limited exam with no acute findings. Reviewed, Interpreted and Dictated by Davina Carmona MD Transcribed by Charlene Knowles Authenticated and [facility]
--- NOTE | 2024-04-14 13:16 | CT_ITS ---
FINAL REPORT CLINICAL HISTORY: AMS, found down, code COMPARISON: None FINDINGS: CT THORACIC SPINE TECHNIQUE: Thin section axial CT with sagittal and coronal reconstructions This study was performed with techniques to keep radiation doses as low as reasonably achievable, (ALARA). Individualized dose reduction techniques using automated exposure control or adjustment of mA and/or kV according to the patient''s size were employed. Motion artifact results in misregistration malalignment. There is no obvious posttraumatic malalignment. There is no evidence of fracture. Airspace opacity in the left upper lobe could represent pneumonia including aspiration. IMPRESSION: No obvious abnormality identified. Left upper lobe airspace opacity. Reviewed, Interpreted and Dictated by Davina Carmona MD Transcribed by Charlene Knowles Authenticated and [facility]
--- NOTE | 2024-04-14 13:17 | XR_ITS ---
FINAL REPORT CLINICAL HISTORY: ett placement COMPARISON: 04/26/2023 FINDINGS: The lungs are grossly unremarkable. There is no evidence of effusion or pneumothorax. Mediastinum is unremarkable. ET tube is in good position. Heart size is normal. IMPRESSION: No acute abnormality. ET tube in good position. Reviewed, Interpreted and Dictated by Davina Carmona MD Transcribed by Charlene Knowles Authenticated and [facility]
[2024-04-14 13:28] LABS: Basophils # 0.1 K/mm3 (0-0.2); Basophils % 0.7 % (0.1-2.0); Eosinophils # 0.2 K/mm3 (0.0-0.4); Eosinophils % 1.1 % (0.1-12.0); Hematocrit 36.2 % (37.0-47.0); Lymphocytes # 4.2 K/mm3 (0.7-4.5); Lymphocytes % 25.8 % (10-50); Mean Corpuscular HGB Conc 33.1 g/dL (31.8-35.4); Mean Corpuscular Volume 99.8 fl (81-99); Mean Platelet Volume 9.3 fl (7.4-10.4); Monocytes # 0.5 K/mm3 (0.1-1.0); Neutrophils # 11.2 K/mm3 (1.8-7.8); Neutrophils % 69.3 % (37.0-80.0); Platelet Count 307 K/mm3 (142-424); Red Blood Count 3.63 M/mm3 (4.20-5.40); Red Cell Distribution Width 15.4 % (11.5-17.5); White Blood Count 16.1 K/mm3 (4.8-10.8)
[2024-04-14 13:30] LABS: Albumin Level 3.7 g/dl (3.5-5.0); Chloride 106 mmol/L (98-107); Sodium 134 mmol/L (136-145)
[2024-04-14 13:31] LABS: Potassium 5.7 mmoL/L (3.5-5.1)
[2024-04-14] MEDS: propofoL 100 ML 4.9 MG IV (13:31)
[2024-04-14 13:33] LABS: Alanine Aminotransferase 304 U/L (12-78); Alkaline Phosphatase 48 U/L (38-126); Aspartate Amino Transferase 382 U/L (14-36); Bilirubin,Total 0.5 mg/dl (0.2-1.3); Blood Urea Nitrogen 9 mg/dl (7-17); Estimated Glomerular Filt Rate 63 ml/min (>60); GFR (African American) 76 ML/MIN (>60)
[2024-04-14 13:34] LABS: Albumin/Globulin Ratio 1.8 (1.1-1.8); Anion Gap 16.7 mEq/L (5-15); Calcium 8.1 mg/dl (8.4-10.2); Carbon Dioxide 17 mmol/L (22.0-30.0); Globulin 2.1 g/dL (1.3-3.2); Glucose 382 mg/dl (74-100); INR 1.08 (0.9-1.1); Total Protein,Serum 5.8 g/dl (6.3-8.2)
[2024-04-14 13:36] LABS: MANUAL DIFFERENTIAL MANUAL DIFFERENTIAL (MANUAL DIFF)
[2024-04-14 13:37] LABS: Albumin Level 3.7 g/dl (3.5-5.0); Ethyl Alcohol < 10 mg/dl (0-10)
--- NOTE | 2024-04-14 13:37 | PC.NURSE ---
pt to ct
[2024-04-14 13:40] LABS: Alanine Aminotransferase 303 U/L (12-78); Alkaline Phosphatase 47 U/L (38-126); Aspartate Amino Transferase 383 U/L (14-36); Bilirubin,Indirect 0.5 mg/dL (0.0-0.9); Bilirubin,Total 0.5 mg/dl (0.2-1.3); Bilirubin,Unconjugated 0.5 mg/dL (0.0-1.1); Magnesium 1.8 mg/dl (1.6-2.3); Total Protein,Serum 5.9 g/dl (6.3-8.2)
[2024-04-14 13:46] LABS: Acetaminophen < 10 ug/ml (10-30); Salicylate < 1.0 mg/dL (2.0-20.0)
--- NOTE | 2024-04-14 13:51 | PC.NURSE ---
1310 pt arrives via [facility], COMPRESSION STARTED AT 1225. PULSE PALPATED AT 24 MINUTES AFTER COMPRESSIONS STARTED pt intubated 7.5 ETT, 23 cm at rusts. pt has received 12mg of narcan intranasal rheumatology specialist, additional 2mg per IV PT HAS 18GA LEFT EJ 151/94, HR 122, O2 100%, RESP 18 1315 20GA IV TO RAC 1318 FC PLACED, TEMP 95.5 PER TSF 1320 2G CALCIUM GLUCONATE AND PROPOFOL STARTED AT THIS TIME.
[2024-04-14 13:54] LABS: HCG Qualitative, Serum Negative (Negative)
[2024-04-14] MEDS: 0.9 % SODIUM CHLORIDE 50 ML VIAL 100 ML IV (13:57)
[2024-04-14] MEDS: SODIUM CHLORIDE 0.9% 10ML SYR (RAD ONLY) 10 ML IV (13:57)
[2024-04-14] MEDS: IOPAMIDOL-370 (76%);100ML BOTTLE 200 ML IV (13:57)
[2024-04-14 14:01] LABS: Opiate Screen,Urine Negative ng/ml (<300)
[2024-04-14 14:02] LABS: Phencyclidine Screen,Urine Negative ng/ml (<25)
--- NOTE | 2024-04-14 14:02 | PC.NURSE ---
Addendum entered by Felicia Kolb RN 04/14/24 14:03: PT RETURNED FROM CT Original Note: PT RETURNED FROM
[2024-04-14] MEDS: CALCIUM GLUC IN NACL, ISO-OSM 1 GM/50 ML BAG IV (14:03)
--- NOTE | 2024-04-14 14:07 | HMH.EDGENADL ---
Discharge Plan Disposition Patient Disposition: Xfer Short-Term Hosp Chief Complaint: Overdose Prescriptions Prescriptions: No Action levothyroxine 75 mcg tablet 75 mcg PO DAILY Qty: 60 1RF cetirizine [Allergy Relief (cetirizine)] 10 mg tablet 10 mg PO DAILYP PRN (Reason: allergy symptoms) quetiapine 200 mg tablet 200 mg PO HS albuterol sulfate 90 mcg/actuation HFA aerosol inhaler 2 puff inhalation Q6HP PRN (Reason: Shortness Of Breath) vilazodone [Viibryd] 20 mg tablet 20 mg PO DAILY Clinical Impressions Clinical Impression: Cardiac arrest, Unresponsive, Acute hyperkalemia, Acute hypoxemic respiratory failure, Acute hypercapnic respiratory failure Print Language Print Language: Albanian Discharge ED Provider: Jewel Sadler General Adult HPI General Chief complaint: Overdose Stated complaint: unresponsive Time Seen by Provider: 04/14/24 13:19 History of Present Illness HPI narrative: Please note that above description of symptoms, in this electronic medical record under categorization of recalled from ER triage doctor by RN are reflective of an initial nursing assessment, however, is not reflective of my full history and physical exam that was personally taken and clarified. Consequentially, this preceding description of symptoms, which may include the patient's categorized chief complaint in the EMR, do not reflect my personal clinical impression, and the ultimate description of history of present illness and patient stated complaints should be deferred to this section of the note. Unless stated otherwise or congruent with this section of the note, additional signs, symptoms, or incongruence should be interpreted as inaccurate with my clinical impression. Related Data Home Medications ?Medication ?Instructions ?Recorded ?Confirmed albuterol sulfate 90 mcg/actuation 2 puff inhalation Q6HP PRN 04/14/24 04/14/24 aerosol inhaler Shortness Of Breath cetirizine 10 mg tablet (Allergy 10 mg PO DAILYP PRN allergy 04/14/24 04/14/24 Relief (cetirizine)) symptoms quetiapine 200 mg tablet 200 mg PO HS 04/14/24 04/14/24 vilazodone 20 mg tablet (Viibryd) 20 mg PO DAILY 04/14/24 04/14/24 Previous Rx's ?Medication ?Instructions ?Recorded levothyroxine 75 mcg tablet 75 mcg PO DAILY #60 tabs 02/15/24 Allergies Allergy/AdvReac Type Severity Reaction Status Date / Time amoxicillin Allergy Severe Hives Verified 03/24/24 15:41 erythromycin base Allergy Severe Hives Verified 03/24/24 15:41 Penicillins Allergy Severe Hives Verified 03/24/24 15:41 [facility] Disclaimer: The information contained in this section may have been updated after the patient was seen, as this information can be updated by other users. Medical History Moderate persistent asthma Insomnia Major depressive disorder Asthma Acquired pneumomediastinum Cerebral aneurysm Hepatitis C infection Tobacco dependence Active intravenous drug use Heroin addiction Methamphetamine dependence Pneumomediastinum Surgical History H/O craniotomy Family History Mother Lupus Father Diabetes Hypertension Social History Smoking Status: Former smoker tobacco type: cigarettes packs per day: 1 alcohol intake: current alcohol intake frequency: 3 or more drinks per day substance use type: heroin current occupational status: unemployed and disabled Travel in the last 8 weeks: None household members: significant other housing: apartment number of children: 4 ROS Obtained: Yes unobtainable due to mental status and Yes unobtainable due to endotracheal tube Physical Exam General General appearance: other (GCS 3 T off sedation) Head Head exam: atraumatic and normocephalic Eye Eye exam: Present other (Pupil 3 mm and fixed bilaterally); Absent conjunctival injection ENT ENT exam: Present other (ET tube in place) Neck Neck exam: Present trachea midline Chest Chest inspection: Present normal inspection Respiratory Respiratory exam: Present normal lung sounds bilaterally (On ventilator) Cardiovascular Cardiovascular exam: Present normal rhythm and tachycardia Abdominal Exam Abdominal exam: Present soft; Absent distention External exam: Present normal external exam Extremities Exam Extremities exam: Present normal inspection and other (No obvious signs of injection site) Neurological Exam Neurological exam: Present other (GCS 3 T off sedation) Medical Decision Making Medical Records Medical records reviewed: Yes I reviewed the patient's medical records. Jung Inquiry Pt receiving controlled substance: No Jung was queried for this patient: No Vital Signs: 04/14/24 13:10 04/14/24 13:20 04/14/24 13:25 Temperature 96.5 F L Temperature Source Core Pulse Rate 98 H 101 H Pulse Rate [Left Radial] 122 H Respiratory Rate 20 24 20 Blood Pressure 165/108 H 149/111 H Blood Pressure [Right Arm] 149/97 H Blood Pressure Mean Blood Pressure Mean [Right Arm] 114 02 Sat by Pulse Oximetry 97 99 100 Oxygen Delivery Method Mechanical Ventilation Mechanical Ventilation Mechanical Ventilation 04/14/24 13:30 04/14/24 14:06 04/14/24 14:11 Temperature 96.4 F L Temperature Source Pulse Rate 106 H 107 H 99 H Pulse Rate [Left Radial] Respiratory Rate 20 33 H Blood Pressure 153/106 H 128/100 H 135/117 H Blood Pressure [Right Arm] Blood Pressure Mean Blood Pressure Mean [Right Arm] 02 Sat by Pulse Oximetry 100 100 100 Oxygen Delivery Method Mechanical Ventilation Mechanical Ventilation Mechanical Ventilation 04/14/24 14:16 04/14/24 14:20 04/14/24 14:32 Temperature Temperature Source Pulse Rate 98 H 91 H 94 H Pulse Rate [Left Radial] Respiratory Rate 25 H 27 H 24 Blood Pressure 128/71 140/97 H 155/131 H Blood Pressure [Right Arm] Blood Pressure Mean Blood Pressure Mean [Right Arm] 02 Sat by Pulse Oximetry 100 98 100 Oxygen Delivery Method Mechanical Ventilation Mechanical Ventilation Mechanical Ventilation 04/14/24 14:37 04/14/24 14:45 04/14/24 14:50 Temperature Temperature Source Pulse Rate 99 H 102 H Pulse Rate [Left Radial] Respiratory Rate 28 H Blood Pressure 140/85 138/97 H Blood Pressure [Right Arm] Blood Pressure Mean 113 103 Blood Pressure Mean [Right Arm] 02 Sat by Pulse Oximetry 98 99 Oxygen Delivery Method Lab Data Lab Results 04/14/24 13:14: WBC 16.1 H, RBC 3.63 L, Hgb 12.0 L, Hct 36.2 L, MCV 99.8 H, MCH 33.0 H, MCHC 33.1, RDW 15.4, Plt Count 307, MPV 9.3, Neut % (Auto) 69.3, Lymph % (Auto) 25.8, Patrick % (Auto) 3.0, Eos % (Auto) 1.1, Baso % (Auto) 0.7, Neut # (Auto) 11.2 H, Lymph # (Auto) 4.2, Patrick # (Auto) 0.5, Eos # (Auto) 0.2, Baso # (Auto) 0.1, Total Counted 100, Neutrophils % (Manual) 61, Band Neutrophils % 1.0, Lymphocytes % (Manual) 33, Monocytes % (Manual) 3, Eosinophils % (Manual) 2, Platelet Estimate Normal, RBC Morphology Normal, PT 12.0, INR 1.08, Sodium 134 L, Potassium 5.7 H, Chloride 106, Carbon Dioxide 17 L, Anion Gap 16.7 H, BUN 9, Creatinine 1.00, Estimated GFR 63, Est GFR ( Amer) 76, Glucose 382 H, Calcium 8.1 L, Magnesium 1.8, Total Bilirubin 0.5 04/14/24 13:14: Total Bilirubin 0.5, Direct Bilirubin 0.0, Conjugated Bilirubin 0.0, Indirect Bilirubin 0.5, Unconjugated Bilirubin 0.5, AST 383 H* 04/14/24 13:14: AST 382 H*, ALT 303 H* 04/14/24 13:14: ALT 304 H*, Alkaline Phosphatase 47 04/14/24 13:14: Alkaline Phosphatase 48, Troponin I 0.20 H, Total Protein 5.9 L 04/14/24 13:14: Total Protein 5.8 L, Albumin 3.7 04/14/24 13:14: Albumin 3.7, Globulin 2.1, Albumin/Globulin Ratio 1.8, Serum HCG, Qual Negative, Salicylates < 1.0 L, Acetaminophen < 10 L, Plasma/Serum Alcohol < 10 04/14/24 13:29: Urine Opiates Screen Negative, Urine Methadone Screen Negative, Ur Barbituates Screen Negative, Ur Phencyclidine Scrn Negative, Ur Amphetamines Screen TNP, U Benzodiazepines Scrn Negative, Urine Cocaine Screen Negative, U Marijuana (THC) Screen Negative 04/14/24 14:20: Specimen Source Left radial, O2 % 50%, ABG pH 7.27 L, ABG pCO2 44.7, ABG pO2 117.0 H, ABG HCO3 19.8 L, ABG Total CO2 21.2 L, ABG O2 Saturation 98, ABG Base Excess -7.2 L, Christopher Test N/a, Vent Rate 20, Tidal Volume 420, PEEP 5 04/14/24 13:14 04/14/24 13:14 Orders (Tests/Meds): ED MEDICATIONS Generic Name Dose Route Start Last Admin Trade Name Leyda PRN Reason Stop Dose Admin Midazolam/Sodium Chloride 50 mg in 50 mls @ 1.633 mls/hr 04/14/24 14:15 Midazolam 50 Mg/50 Ml-0.9%Nacl IV 05/14/24 14:14 .Q24H PATTI Protocol 0.02 MG/KG/HR Sodium Chloride 10 ml 04/14/24 13:56 04/14/24 13:57 Sodium Chloride 0.9% 10ml Syr (Rad Only) IV 05/14/24 13:55 10 ml NEEDED PRN Administration Maintain IV Site Discontinued Medications Generic Name Dose Route Start Last Admin Trade Name Freq PRN Reason Stop Dose Admin Haloperidol Lactate 5 mg 04/14/24 14:18 Haloperidol Lactate 5 Mg/Ml Vial IV 04/14/24 14:19 ONCE ONE Calcium Gluconate/Sodium Chloride 1 gm in 50 mls @ 999 mls/hr 04/14/24 13:19 04/14/24 14:03 Calcium Gluconate 1,000mg/50ml Nacl Premix IV 04/14/24 13:21 999 mls/hr ONCE ONE Administration Iopamidol 200 ml 04/14/24 13:56 04/14/24 13:57 Iopamidol-370 (76%);100ml Bottle IV 04/14/24 13:57 200 ml ONCE ONE Administration Sodium Chloride 100 ml 04/14/24 13:56 04/14/24 13:57 0.9 % Sodium Chloride 50 Ml Vial IV 04/14/24 13:57 100 ml ONCE ONE Administration ORDERS Category Date Time Status CT angio abdomen pelvis Stat Cat Scan 04/14/24 13:[address] angio chest - dissection Stat Cat Scan 04/14/24 13:[address] angio head Stat Cat Scan 04/14/24 13:[address] angio neck Stat Cat Scan 04/14/24 13:[address] cervical spine wo con Stat Cat Scan 04/14/24 13:[address] head/brain wo con Stat Cat Scan 04/14/24 13:[address] lumbar spine wo con Stat Cat Scan 04/14/24 13:[address] thoracic spine wo con Stat Cat Scan 04/14/24 13:16 Completed POCUS Point of Care (ER Only) Stat Exams 04/14/24 13:18 Completed XR chest portable Stat Exams 04/14/24 13:17 Completed Acetaminophen Stat Lab 04/14/24 13:14 Completed CMP [Comprehensive Metabolic Panel] Stat Lab 04/14/24 13:14 Completed Complete Blood Count Auto Diff Stat Lab 04/14/24 13:14 Completed Drug Screen,Urine Stat Lab 04/14/24 13:29 Completed Ethyl Alcohol Stat Lab 04/14/24 13:14 Completed HCG Qualitative, Serum Stat Lab 04/14/24 13:14 Completed Lactic Acid Stat Lab 04/14/24 14:39 Received Liver Panel Stat Lab 04/14/24 13:14 Completed Magnesium Stat Lab 04/14/24 13:14 Completed Prothrombin Time INR Stat Lab 04/14/24 13:14 Completed Salicylate Stat Lab 04/14/24 13:14 Completed Troponin I Q3H Lab 04/14/24 16:30 Ordered Troponin I Q3H Lab 04/14/24 19:30 Ordered Troponin I Stat Lab 04/14/24 13:14 Completed Sputum Culture & Gram Stain Stat Micro 04/14/24 13:25 Received Arterial Blood Gas Routine RT 04/14/24 14:20 Completed Arterial Blood Gas Stat RT 04/14/24 13:17 Ordered Medical Decision Narrative: Is a 34-year-old female history of IV drug abuse presenting as postcode. Per EMS and police, patient has history of IV drug abuse. Was found down slumped over in a chair. No paraphernalia was in the area. Patient was able to be pulled out of the chair, chest compressions were started upon police arrival, unknown amount of downtime prior. 25 minutes of chest compressions were performed by police. Patient received a total of 12 mg intranasal Narcan. After 25 minutes of chest compressions, patient had palpable pulse. EMS was contacted. On EMS arrival, patient's glucose right around 400. Patient was intubated, maintained pulses. History obtained with EMS and police. On arrival to the emergency department, patient GCS 3 T off sedation. Bilateral breath sounds, pulses equal and symmetric in upper and lower extremities. Pupils are 3 to 4 mm and nonreactive bilaterally. Patient without meaningful movement. No posturing, however. Abdomen is soft, does not appear to be distended. No obvious signs of traumatic injury. Differential includes overdose, intracranial hemorrhage, card, global cerebral ischemia, CVA, dissection, septic pulmonary embolus, pneumothorax, sepsis, among others. Bedside [id number] ultrasound was performed, concern for thickening of mitral valve. No obvious regurgitation. There is gross cardiac activity and no pericardial effusion. Bilateral lung sliding. EKG independently interpreted, patient sinus tachycardia 102 beats a minute without ST or T wave changes concerning for acute ischemia, but she does have peaked T waves throughout the precordium concerning for potential hyperkalemia. Patient was given 2 g calcium gluconate empirically. Workup independently interpreted. On CT scan, no intracranial hemorrhage on independent interpretation. Likely reactive leukocytosis 16.1, coags normal. Patient's chemistry with normal kidney function, Mild hyponatremia, mild hyperkalemia 5.7. Insulin and dextrose given. LFTs elevated AST 382, ALT 304, alkaline phosphatase normal. Patient's troponin 0.2, likely secondary to trauma and global ischemia. hCG negative. CTA of the chest without dissection or large PE on independent rotation. No evidence of pneumothorax. [facility] was contacted and case was discussed at length for transfer after discussing case with hospitalist and patient family. Because patient high risk for clinical decompensation if discharged, deemed appropriate for transfer and inpatient admission. Results were relayed to patient who voiced understanding and patient was agreeable to transfer, inpatient admission, and management. Patient was graciously accepted and transferred to for further definitive management, under Dr. Galeana. Education And Development Manager disclaimer Much of this encounter note is an electronic machine chocolate molder spoken language to printed text. Electronic machine chocolate molder of the spoken language may permit errors. Although I have reviewed the note, some errors may still exist. Procedures Limited Ultrasound Indication:: Limited cardiac ultrasound Indication: Postcode Identified cardiac views: -Cardiac parasternal long axis -Cardiac parasternal short axis -Cardiac apical four-chamber Findings: -Cardiac activity present -Gross wall motion normal -Pericardial effusion absent -Right heart strain absent Impression: -Normal cardiac ultrasound within limitations of cardiac pads in place Images were saved to permanent archive The study was technically adequate CPT: 27516 This study was performed by me, and I personally interpreted all images/videos. Based on my clinical judgement, these images were adequate and did not necessitate further imaging Critical Care Critical Care Time Critical Care Time: Yes (neuro) Attestation: On 04/14/24, the high probability of a clinically significant, sudden or life threatening deterioration of the following system(s) required my full and direct attention, intervention and personal management. The time I documented below is in addition to time spent performing reported procedures but includes the following listed in this critical care notation. Total Time Total Critical Care Time: 60
--- NOTE | 2024-04-14 14:07 | PC.NURSE ---
DR SHER SPEAKING DR MENDEZ
[2024-04-14 14:10] LABS: Barbiturates Screen,Urine Negative ng/ml (<200)
[2024-04-14 14:11] LABS: Benzodiazepines Screen,Urine Negative ng/ml (<200); Cannabinoid Screen,Urine Negative ng/ml (<50)
[2024-04-14 14:12] LABS: Cocaine Screen,Urine Negative ng/ml (<300); Methadone Screen,Urine Negative ng/ml (<300)
--- NOTE | 2024-04-14 14:12 | PC.NURSE ---
CALLING [facility] FOR POSSIBLE TRANSFER TO MEDICAL ICU
[2024-04-14] MEDS: MIDAZOLAM HCL IN 0.9 % NACL/PF 50 MG/50 ML PLAST..BAG IV ×2 (14:14→16:43)
[2024-04-14] MEDS: HALOPERIDOL LACTATE 5 MG/ML VIAL IV (14:20)
--- NOTE | 2024-04-14 14:27 | PC.NURSE ---
DR SHER UPDATING PT'S FATHER AT THIS TIME
[2024-04-14 14:31] LABS: ABG Base Excess -7.2 mmol/L (-2.4-2.3); ABG HCO3 19.8 mmhg (22.0-26.0); ABG Oxygen Saturation 98 % (90-100); ABG PCO2 44.7 mmhg (35.0-45.0); ABG PH 7.27 mmol/L (7.35-7.45); ABG TCO2 21.2 mmhg (23-27)
[2024-04-14 14:32] LABS: Oxygen 50% %; PEEP 5; Source Left Radial; Tidal Volume 420; Vent Rate 20
[2024-04-14 14:50] LABS: Eosinophils % 2 % (0-3); Lymphocytes % 33 % (10-50); Monocytes % 3 % (2-9); Neutrophils % 61 % (42-76); Platelet Estimate Normal; RBC Morphology Normal; Total Cells Counted 100
--- NOTE | 2024-04-14 14:50 | PC.NURSE ---
Dr. Sadler on the phone with
[2024-04-14 15:06] LABS: Lactic Acid 2.5 mmol/L (0.7-2.1)
--- NOTE | 2024-04-14 15:12 | ED_ITS ---
Discharge Plan Disposition Patient Disposition: Xfer Short-Term Hosp Prescriptions Prescriptions: No Action levothyroxine 75 mcg tablet 75 mcg PO DAILY Qty: 60 1RF cetirizine [Allergy Relief (cetirizine)] 10 mg tablet 10 mg PO DAILYP PRN (Reason: allergy symptoms) quetiapine 200 mg tablet 200 mg PO HS albuterol sulfate 90 mcg/actuation HFA aerosol inhaler 2 puff inhalation Q6HP PRN (Reason: Shortness Of Breath) vilazodone [Viibryd] 20 mg tablet 20 mg PO DAILY Clinical Impressions Clinical Impression: Cardiac arrest, Unresponsive, Acute hyperkalemia, Acute hypoxemic respiratory failure, Acute hypercapnic respiratory failure Print Language Print Language: Korean Discharge ED Provider: Jewel Sadler General Adult HPI General Chief complaint: Overdose Stated complaint: unresponsive Time Seen by Provider: 04/14/24 13:19 Mode of Arrival: EMS Source of Information: EMS Limitations: Language Barrier Description of Symptoms (Recalled from ER Triage Doc. by RN): pt to ed via ems c/o overdose. pt arrives intubated and unresponsive. pt received a total of 14mg of narcan in route. pt received compressions on scene by [facility]. Related Data Home Medications ?Medication ?Instructions ?Recorded ?Confirmed albuterol sulfate 90 mcg/actuation 2 puff inhalation Q6HP PRN 04/14/24 04/14/24 aerosol inhaler Shortness Of Breath cetirizine 10 mg tablet (Allergy 10 mg PO DAILYP PRN allergy 04/14/24 04/14/24 Relief (cetirizine)) symptoms quetiapine 200 mg tablet 200 mg PO HS 04/14/24 04/14/24 vilazodone 20 mg tablet (Viibryd) 20 mg PO DAILY 04/14/24 04/14/24 Previous Rx's ?Medication ?Instructions ?Recorded levothyroxine 75 mcg tablet 75 mcg PO DAILY #60 tabs 02/15/24 Allergies Allergy/AdvReac Type Severity Reaction Status Date / Time amoxicillin Allergy Severe Hives Verified 03/24/24 15:41 erythromycin base Allergy Severe Hives Verified 03/24/24 15:41 Penicillins Allergy Severe Hives Verified 03/24/24 15:41 [facility] Disclaimer: The information contained in this section may have been updated after the patient was seen, as this information can be updated by other users. Medical History Moderate persistent asthma Insomnia Major depressive disorder Asthma Acquired pneumomediastinum Cerebral aneurysm Hepatitis C infection Tobacco dependence Active intravenous drug use Heroin addiction Methamphetamine dependence Pneumomediastinum Surgical History H/O craniotomy Family History Mother Lupus Father Diabetes Hypertension Social History Smoking Status: Former smoker tobacco type: cigarettes packs per day: 1 alcohol intake: current alcohol intake frequency: 3 or more drinks per day substance use type: heroin current occupational status: unemployed and disabled Travel in the last 8 weeks: None household members: significant other housing: apartment number of children: 4 Physical Exam General General appearance: other (GCS 3 T off sedation) Medical Decision Making Vital Signs: 04/14/24 13:10 04/14/24 13:20 04/14/24 13:25 Temperature 96.5 F L Temperature Source Core Pulse Rate 98 H 101 H Pulse Rate [Left Radial] 122 H Respiratory Rate 20 24 20 Blood Pressure 165/108 H 149/111 H Blood Pressure [Right Arm] 149/97 H Blood Pressure Mean Blood Pressure Mean [Right Arm] 114 02 Sat by Pulse Oximetry 97 99 100 Oxygen Delivery Method Mechanical Ventilation Mechanical Ventilation Mechanical Ventilation 04/14/24 13:30 04/14/24 14:06 04/14/24 14:11 Temperature 96.4 F L Temperature Source Pulse Rate 106 H 107 H 99 H Pulse Rate [Left Radial] Respiratory Rate 20 33 H Blood Pressure 153/106 H 128/100 H 135/117 H Blood Pressure [Right Arm] Blood Pressure Mean Blood Pressure Mean [Right Arm] 02 Sat by Pulse Oximetry 100 100 100 Oxygen Delivery Method Mechanical Ventilation Mechanical Ventilation Mechanical Ventilation 04/14/24 14:16 04/14/24 14:20 04/14/24 14:32 Temperature Temperature Source Pulse Rate 98 H 91 H 94 H Pulse Rate [Left Radial] Respiratory Rate 25 H 27 H 24 Blood Pressure 128/71 140/97 H 155/131 H Blood Pressure [Right Arm] Blood Pressure Mean Blood Pressure Mean [Right Arm] 02 Sat by Pulse Oximetry 100 98 100 Oxygen Delivery Method Mechanical Ventilation Mechanical Ventilation Mechanical Ventilation 04/14/24 14:37 04/14/24 14:45 04/14/24 14:50 Temperature Temperature Source Pulse Rate 99 H 102 H Pulse Rate [Left Radial] Respiratory Rate 28 H Blood Pressure 140/85 138/97 H Blood Pressure [Right Arm] Blood Pressure Mean 113 103 Blood Pressure Mean [Right Arm] 02 Sat by Pulse Oximetry 98 99 Oxygen Delivery Method Lab Data Lab Results 04/14/24 13:14: WBC 16.1 H, RBC 3.63 L, Hgb 12.0 L, Hct 36.2 L, MCV 99.8 H, MCH 33.0 H, MCHC 33.1, RDW 15.4, Plt Count 307, MPV 9.3, Neut % (Auto) 69.3, Lymph % (Auto) 25.8, [place] % (Auto) 3.0, Eos % (Auto) 1.1, Baso % (Auto) 0.7, Neut # (Auto) 11.2 H, Lymph # (Auto) 4.2, [place] # (Auto) 0.5, Eos # (Auto) 0.2, Baso # (Auto) 0.1, Total Counted 100, Neutrophils % (Manual) 61, Band Neutrophils % 1.0, Lymphocytes % (Manual) 33, Monocytes % (Manual) 3, Eosinophils % (Manual) 2, Platelet Estimate Normal, RBC Morphology Normal, PT 12.0, INR 1.08, Sodium 134 L, Potassium 5.7 H, Chloride 106, Carbon Dioxide 17 L, Anion Gap 16.7 H, BUN 9, Creatinine 1.00, Estimated GFR 63, Est GFR ( Amer) 76, Glucose 382 H, Calcium 8.1 L, Magnesium 1.8, Total Bilirubin 0.5 04/14/24 13:14: Total Bilirubin 0.5, Direct Bilirubin 0.0, Conjugated Bilirubin 0.0, Indirect Bilirubin 0.5, Unconjugated Bilirubin 0.5, AST 383 H* 04/14/24 13:14: AST 382 H*, ALT 303 H* 04/14/24 13:14: ALT 304 H*, Alkaline Phosphatase 47 04/14/24 13:14: Alkaline Phosphatase 48, Troponin I 0.20 H, Total Protein 5.9 L 04/14/24 13:14: Total Protein 5.8 L, Albumin 3.7 04/14/24 13:14: Albumin 3.7, Globulin 2.1, Albumin/Globulin Ratio 1.8, Serum HCG, Qual Negative, Salicylates < 1.0 L, Acetaminophen < 10 L, Plasma/Serum Alcohol < 10 04/14/24 13:29: Urine Opiates Screen Negative, Urine Methadone Screen Negative, Ur Barbituates Screen Negative, Ur Phencyclidine Scrn Negative, Ur Amphetamines Screen TNP, U Benzodiazepines Scrn Negative, Urine Cocaine Screen Negative, U Marijuana (THC) Screen Negative 04/14/24 14:20: Specimen Source Left radial, O2 % 50%, ABG pH 7.27 L, ABG pCO2 44.7, ABG pO2 117.0 H, ABG HCO3 19.8 L, ABG Total CO2 21.2 L, ABG O2 Saturation 98, ABG Base Excess -7.2 L, Christopher Test N/a, Vent Rate 20, Tidal Volume 420, PEEP 5 04/14/24 14:39: Lactate 2.5 H 04/14/24 13:14 04/14/24 13:14 Orders (Tests/Meds): ED MEDICATIONS Generic Name Dose Route Start Last Admin Trade Name Freq PRN Reason Stop Dose Admin Midazolam/Sodium Chloride 50 mg in 50 mls @ 1.633 mls/hr 04/14/24 14:15 Midazolam 50 Mg/50 Ml-0.9%Nacl IV 05/14/24 14:14 .Q24H PATTI Protocol 0.02 MG/KG/HR Sodium Chloride 10 ml 04/14/24 13:56 04/14/24 13:57 Sodium Chloride 0.9% 10ml Syr (Rad Only) IV 05/14/24 13:55 10 ml NEEDED PRN Administration Maintain IV Site Discontinued Medications Generic Name Dose Route Start Last Admin Trade Name Freq PRN Reason Stop Dose Admin Haloperidol Lactate 5 mg 04/14/24 14:18 Haloperidol Lactate 5 Mg/Ml Vial IV 04/14/24 14:19 ONCE ONE Calcium Gluconate/Sodium Chloride 1 gm in 50 mls @ 999 mls/hr 04/14/24 13:19 04/14/24 14:03 Calcium Gluconate 1,000mg/50ml Nacl Premix IV 04/14/24 13:21 999 mls/hr ONCE ONE Administration Iopamidol 200 ml 04/14/24 13:56 04/14/24 13:57 Iopamidol-370 (76%);100ml Bottle IV 04/14/24 13:57 200 ml ONCE ONE Administration Sodium Chloride 100 ml 04/14/24 13:56 04/14/24 13:57 0.9 % Sodium Chloride 50 Ml Vial IV 04/14/24 13:57 100 ml ONCE ONE Administration ORDERS Category Date Time Status CT angio abdomen pelvis Stat Cat Scan 04/14/24 13:[address] angio chest - dissection Stat Cat Scan 04/14/24 13:[address] angio head Stat Cat Scan 04/14/24 13:[address] angio neck Stat Cat Scan 04/14/24 13:[address] cervical spine wo con Stat Cat Scan 04/14/24 13:[address] head/brain wo con Stat Cat Scan 04/14/24 13:[address] lumbar spine wo con Stat Cat Scan 04/14/24 13:[address] thoracic spine wo con Stat Cat Scan 04/14/24 13:16 Completed POCUS Point of Care (ER Only) Stat Exams 04/14/24 13:18 Completed XR chest portable Stat Exams 04/14/24 13:17 Completed Acetaminophen Stat Lab 04/14/24 13:14 Completed CMP [Comprehensive Metabolic Panel] Stat Lab 04/14/24 13:14 Completed Complete Blood Count Auto Diff Stat Lab 04/14/24 13:14 Completed Drug Screen,Urine Stat Lab 04/14/24 13:29 Completed Ethyl Alcohol Stat Lab 04/14/24 13:14 Completed HCG Qualitative, Serum Stat Lab 04/14/24 13:14 Completed Lactic Acid Stat Lab 04/14/24 14:39 Completed Liver Panel Stat Lab 04/14/24 13:14 Completed Magnesium Stat Lab 04/14/24 13:14 Completed Prothrombin Time INR Stat Lab 04/14/24 13:14 Completed Salicylate Stat Lab 04/14/24 13:14 Completed Troponin I Q3H Lab 04/14/24 16:30 Ordered Troponin I Q3H Lab 04/14/24 19:30 Ordered Troponin I Stat Lab 04/14/24 13:14 Completed Sputum Culture & Gram Stain Stat Micro 04/14/24 13:25 Received Arterial Blood Gas Routine RT 04/14/24 14:20 Completed Arterial Blood Gas Stat RT 04/14/24 13:17 Ordered
[2024-04-14] MEDS: propofoL 100 ML 34.29 MG IV (16:54)
--- NOTE | 2024-04-14 17:03 | PC.NURSE ---
1200ml emptied from gomez bag
[2024-04-14 18:57] LABS: Reflex Lactic Add Lactic Reflex
[2024-04-19 11:14] LABS: Amphetamine Positive (.); Amphetamine (GC/MS) >3000 ng/mL (Cutoff=500); Amphetamines Positive (.); Methamphetamine Positive (.); Methamphetamine (GC/MS) >3000 ng/mL (Cutoff=500)
== END 2024-04-14 17:23 | disposition short-term general hospital (02) ==
PROVIDERS: Emergency Medicine; Emergency Provider Emergency Medicine
DX: I46.9 Cardiac arrest, cause unspecified (principal); J96.01 Acute respiratory failure with hypoxia; J96.02 Acute respiratory failure with hypercapnia; E87.5 Hyperkalemia; R73.9 Hyperglycemia, unspecified; B95.7 Other staphylococcus as the cause of diseases classified elsewhere; R00.0 Tachycardia, unspecified; F15.188 Other stimulant abuse with other stimulant-induced disorder
CPT/HCPCS: 51702; 70450; 70496; 70498; 71045; 71275; 72125; 72128; 72131; 74174; 80053; 80076; 80307; 80320; 80324; 80329; 82803; 83605; 83735; 84484; 84703; 85007; 85025; 85027; 85610; 87070; 87077; 87186; 87205; 93005; 94002; 96365; 96366; 96367; 96375; 99291; G0480; J1630; J2704; Q9967